=== PATIENT | female | born 1945 | race Caucasian/White ===

== ENCOUNTER 2017-08-24 08:34 | Inpatient (IN) | payer MEDICARE ==
--- NOTE | 2017-08-12 17:18 | HP ---
HISTORY AND PHYSICAL: DATE OF ADMISSION/SURGERY: 08/24/17 DATE OF OFFICE VISIT: 08/11/17 SURGEON: Sherie Elaine MD * (DICTATED BY TIFFANIE SANDOVAL) PROCEDURE: Right total knee arthroplasty. CHIEF COMPLAINT: Right knee pain. HISTORY OF PRESENT ILLNESS: Ms. Juarez is a 72-year-old female with complaints of right knee pain secondary to end-stage osteoarthritis. She has failed conservative management, elected to proceed with a right total knee arthroplasty, which is scheduled for 08/24/[address] Elaine. PAST MEDICAL HISTORY: Osteoarthritis, rheumatoid arthritis, and GERD. PAST SURGICAL HISTORY: Colonoscopy, left hand cyst removal. CURRENT MEDICATIONS: 1. Methotrexate 2.5 mg 6 tabs every week. 2. Humira. 3. Folic acid. 4. Calcium with vitamin D. 5. Multivitamin AREDS. 6. Biotin 5000 mg. 7. Advil as needed. 8. Magnesium 400 mg daily. ALLERGIES: To PENICILLIN. FAMILY HISTORY: Denies. SOCIAL HISTORY: She is a 72-year-old female. She lives alone. She does not smoke, use drugs, or alcohol. REVIEW OF SYSTEMS: A complete 14-point review of systems was reviewed with the patient. It was positive for GERD. She denies any history of DVT, PE, hepatitis C, HIV, or anesthesia problems. PHYSICAL EXAMINATION GENERAL: She is well developed, well nourished, in no acute distress. VITAL SIGNS: She stands 5 feet 6 inches tall, weighs 220 pounds. Her blood pressure is 150/92, heart rate is 80. HEENT: Normocephalic, atraumatic. NECK: Supple. No palpable lymph nodes. PULMONARY: The lungs are clear to auscultation bilaterally. CARDIO: Regular rate and rhythm. Strong S1, S2. ABDOMEN: Soft, nontender, nondistended. MUSCULOSKELETAL: Right lower extremity, the skin is intact. There are no open wounds or abrasions. She has tenderness to palpation over the medial and lateral joint line. No varus or valgus instability. 15 to 120 degrees range of motion. 2+ dorsalis pedis pulses. Intact sensation in the lower extremity, muscle group strength is intact at 5/5. NEUROLOGICAL: Alert and oriented x3. Cranial nerves II through XII are intact. ASSESSMENT AND PLAN: Ms. Juarez is a 72-year-old female with complaints of right knee pain secondary to end-stage osteoarthrosis. She has failed conservative management, elected to proceed with a right total knee arthroplasty , which is scheduled for 08/24/[address] Elaine discussed the risks and benefits of the surgery at today's visit and all of her questions were answered. Percocet, Colace, and Coumadin were sent to her pharmacy for postoperative pain control and DVT prophylaxis. She will follow with Dr. Elaine 2 weeks after the surgery. TIFFANIE SANDOVAL [id number]/[facility] #: [id number] GELA
[~2017-08-24 08:34] MED LIST: Buffered Lidocaine 0.9% SYRIN* 5 ML/SYR SYRINGE INTRADERM ONE
--- OUTSIDE RECORDS SUMMARY | 2017-08-24 08:43 | XMS REPORT ---
:1945 External Reference #:[id number] Author Organization [facility] Address [address] [address] Phone [phone] Care Team Providers Name Role Phone Laurie Paz MD Primary Care Physician Unavailable Payers Type Date Identification Numbers Payment Provider Subscriber Medicare Primary Effective: Policy Number: Medicare Yen Juarez 2012 [id number] PayID: [id number] [address] [place] [address] [employer] Part B Effective: Policy Number: [facility]/[employer] Yen Mann 2012 [id number] [facility] Larry PayID: [id number] [address] [place] [address] Problems Date Description Provider Status Onset: 05/19/2012 Rheumatoid arthritis Todd Tong M.D. Active Onset: 05/19/2012 Medications Nursing Home (Current) Use Todd Tong M.D. Active Encounter Onset: 12/17/2016 Localized, primary osteoarthritis Otilia Greenwood MD Active Onset: 05/20/2015 Knee joint effusion Otilia Greenwood MD Active Onset: 09/10/2014 Taking medication FILI Hutton Active Family History Date Family Member(s) Problem(s) Comments General Heart Disease Social History Type Date Description Comments Lives With Alone Occupation Retired ETOH Use Denies alcohol use Smoking Patient is a former smoker Exercise Type/Frequency Does not exercise Allergies, Adverse Reactions, Alerts Date Description Reaction Status Severity Comments 10/01/2010 Penicillin Urticaria active Medications Medication Date Status Form Strength Qnty SIG Indications Ordering Provider Coumadin Active Tablets 2mg 90tabs take 1-3 Sherie 018 tabs by Chele, mouth at 5 M.D. at night as directed Percocet Active Tablets 5-325mg 90tabs 1-2 by Sherie 018 mouth every Chele, 4-6 hours M.D. as needed pain Colace Active Capsules 100mg 90caps 1 tab by Sherie 018 mouth 2-3 Chele, times a day M.D. as needed Methotrexate Active Tablets 2.5mg 6 tbs by M05.79 Zsofia 017 mouth every John, week [employer] Z79.899 Humira Pen 10/01/2010 Active PNKT 40mg/0.8ML 6units inject sub -q M05.79 Zsofia inj 40mg once QUINTEN LopezP every other week Z79.899 Folic Acid 10/01/2010 Active Tablets 1mg 90tabs Take One Z79.899 Zsofia Tablet By John, Mouth Once [employer] Daily Calcium 600 + D Active Tablets 600-40 1 po bid Unknown 0mg-Un it Multivitamins Active Capsules 30caps 1 capsule Unknown mariaelena;y Areds Active Unknown Biotin Active 5000mg Unknown Advil Active Tablets 200mg as needed Unknown Magnesium Active Tablets 400mg 1 by mouth Unknown every day Methotrexate 03/11/2017 - Hx Tablets 2.5mg 84tabs Take 7 M05.79 Zsofia 06/14/2017 Tablets By John Mouth [employer] Every Week Z79.899 Methotrexate 12/07/2016 - Hx Tablets 2.5mg 84tabs Take 7 M05.79 Zsofia 03/11/2017 Tablets By FILI Lopez Mouth Every Week Z79.899 Methotrexate 09/07/2016 - Hx Tablets 2.5mg 84tabs Take 7 M05.79 Zsofia 12/07/2016 Tablets By FILI Lopez Mouth Every Week Z79.899 Handicap [address]ing 05/01/2016 - Hx Jono Permit Temporary 07/19/2017 Charlene Ravi Acetaminophen 05/20/2015 - Hx Tablets 500mg 90tab take 2 M25.4 Zaneb 04/30/2016 s tablets 62 MD Timo every 8 hours as needed for pain Naproxen 05/17/2015 - Hx Tablets 500mg 90tab 1 by mouth Zaneb 09/19/2016 s twice a day MD Timo as needed pain Methotrexate 09/19/2014 - Hx Tablets 2.5mg 84tab Take 7 M05.7 Zsofia 09/07/2016 s Tablets By 9 FILI Lopez Mouth Every Week Z79.899 Ibandronate Sodium 02/26/2014 - Hx Tablets 150mg 3tabs take 1 Zsofia 04/05/2014 tablet once John, a month [employer] Hydroxychloroquine 11/14/2012 - Hx Tablets 200mg 180tabs 1 po bid 714 Zsofia Sulfate 01/03/2013 .0 FILI Lopez Voltaren 11/14/2012 - Hx Gel 1% 1tubes apply to Zsofia 02/14/2013 affected John, area bid, [employer] prn Methotrexate 10/01/2010 - Hx Tablets 2.5mg 96tabs 7 tabs 1x 714 Zsofia 09/19/2014 per week .0 FILI Lopez V58.69 Nabumetone 10/01/2010 - Hx Tablets 750mg 90tabs take one Zsofia 09/04/2013 tablet by FILI Lopez mouth once daily Chantix - Hx Tablets 1mg 60tabs 1 PO bid Ruben Mondragon 10/01/2010 Bar Mcnair.,FACP Vitamin D - Hx Tablets 400Unit 30tabs qd po Unknown 12/17/2014 Prilosec - Hx Capsules DR 20mg 30caps prn Unknown 01/27/2016 Boniva - Hx Tablets 150mg take 1 Zsofia 02/26/2014 tablet once FILI Lopez a month Ibuprofen - Hx Tablets 200mg as needed Unknown 09/06/2016 Medications Administered in Office Medication Date Status Form Strength Qnty SIG Indications Ordering Provider Triamcinolone 04/13/ Administered Injection Zaneb (Kenalog) 2016 MD Timo Triamcinolone 04/13/ Administered Injection Zaneb (Kenalog) 2016 MD Timo Triamcinolone 12/17/ Administered Injection Zaneb (Kenalog) 2016 MD Timo Depomedrol 80MG 05/09/ Administered Injection Zagregb 2014 MD Timo Immunizations CPT Code Status Date Vaccine Reaction Lot # [id number] Given 06/14/2017 Influenza Virus Vaccine, [id number] Quadrivalent, Split, Preservative Free [id number] Given 03/11/2017 Pneumonia Vaccine no immedite reaction [id number] noted ... [place] tolerated [place] .. [place]h [id number] Given 04/30/2016 Influenza Virus Vaccine, [id number] Quadrivalent, Split, Preservative Free [id number] Given 06/05/2014 Pneumococcal Conjugate [id number] Vaccine 13 Valent For Intramuscular Use 69042 Given 06/05/2014 Flu Vaccine Split Virus [id number] Preservative Free For Indiv 3Yr Older 35951 Given 05/18/2013 Influenza Virus 3Yrs & [id number] Over 20376 Given 05/18/2013 Flu Vaccine Split Virus Preservative Free For Indiv 3Yr Older [id number] Given 05/19/2012 Fluzone Vaccine [id number] Given 05/19/2011 Influenza Virus 3Yrs & [id number] Over Vital Signs Date Vital Result Comment 08/12/2017 Weight 222.00 lb Heart Rate 82 /min BP Systolic Sitting 134 mmHg BP Diastolic Sitting 80 mmHg Respiratory Rate 14 /min 08/11/2017 Height 66 inches 5'6" Weight 220.00 lb Heart Rate 80 /min BP Systolic 150 mmHg BP Diastolic 92 mmHg BMI (Body Mass Index) 35.5 kg/m2 07/12/2017 Height 66 inches 5'6" Weight 210.00 lb Heart Rate 82 /min BP Systolic 182 mmHg BP Diastolic 80 mmHg Body Temperature 96.8 F BMI (Body Mass Index) 33.9 kg/m2 06/29/2017 Height 63 inches 5'3" Weight 215.00 lb Heart Rate 80 /min Respiratory Rate 18 /min Body Temperature 97.6 F Pain Level 8 BMI (Body Mass Index) 38.1 kg/m2 06/14/2017 Height 63 inches 5'3" Weight 218.00 lb Heart Rate 81 /min BP Systolic Sitting 128 mmHg BP Diastolic Sitting 74 mmHg Pain Level 1 0.5 O2 % BldC Oximetry 97 % BMI (Body Mass Index) 38.6 kg/m2 04/13/2017 Height 63 inches 5'3" Weight 215.00 lb Heart Rate 78 /min BP Systolic 140 mmHg BP Diastolic 82 mmHg Respiratory Rate 18 /min Body Temperature 96.9 F Pain Level 1 BMI (Body Mass Index) 38.1 kg/m2 03/11/2017 Height 63 inches 5'3" Weight 215.00 lb Heart Rate 76 /min BP Systolic Sitting 120 mmHg BP Diastolic Sitting 70 mmHg Pain Level 0 O2 % BldC Oximetry 94 % BMI (Body Mass Index) 38.1 kg/m2 12/17/2016 Height 63 inches 5'3" Weight 215.00 lb BP Systolic 118 mmHg BP Diastolic 76 mmHg Respiratory Rate 17 /min Body Temperature 97.6 F Pain Level 5 BMI (Body Mass Index) 38.1 kg/m2 12/07/2016 Weight 218.00 lb Heart Rate 62 /min BP Systolic Sitting 122 mmHg BP Diastolic Sitting 64 mmHg Respiratory Rate 15 /min Pain Level 0 O2 % BldC Oximetry 98 % 09/07/2016 Height 63 inches 5'3" Weight 221.19 lb Heart Rate 70 /min BP Systolic 120 mmHg BP Diastolic 60 mmHg Pain Level 0 O2 % BldC Oximetry 92 % BMI (Body Mass Index) 39.2 kg/m2 04/30/2016 Height 63.50 inches 5'3.50" Weight 216.00 lb Heart Rate 80 /min BP Systolic Sitting 126 mmHg BP Diastolic Sitting 82 mmHg Pain Level 0 BMI (Body Mass Index) 37.7 kg/m2 01/27/2016 Height 63.50 inches 5'3.50" Weight 215.00 lb Heart Rate 71 /min BP Systolic Sitting 136 mmHg BP Diastolic Sitting 88 mmHg Pain Level 0 BMI (Body Mass Index) 37.5 kg/m2 10/23/2015 Height 63.50 inches 5'3.50" Weight 217.00 lb Heart Rate 86 /min BP Systolic Sitting 118 mmHg BP Diastolic Sitting 84 mmHg Respiratory Rate 14 /min Pain Level 0 BMI (Body Mass Index) 37.8 kg/m2 07/24/2015 Height 63.50 inches 5'3.50" Weight 206.38 lb Heart Rate 88 /min BP Systolic Sitting 120 mmHg BP Diastolic Sitting 80 mmHg Respiratory Rate 14 /min Body Temperature 97.6 F Pain Level 0 BMI (Body Mass Index) 36.0 kg/m2 05/20/2015 Height 63.50 inches 5'3.50" Weight 206.00 lb Pain Level 8 BMI (Body Mass Index) 35.9 kg/m2 05/09/2015 Height 63.50 inches 5'3.50" Weight 206.00 lb Heart Rate 66 /min BP Systolic Sitting 153 mmHg BP Diastolic Sitting 96 mmHg BMI (Body Mass Index) 35.9 kg/m2 04/24/2015 Height 63.50 inches 5'3.50" Weight 205.12 lb Heart Rate 80 /min BP Systolic Sitting 130 mmHg BP Diastolic Sitting 84 mmHg Respiratory Rate 14 /min Pain Level 1 BMI (Body Mass Index) 35.8 kg/m2 12/17/2014 Height 63.50 inches 5'3.50" Weight 209.00 lb Heart Rate 80 /min BP Systolic Sitting 130 mmHg BP Diastolic Sitting 80 mmHg Pain Level 3 BMI (Body Mass Index) 36.4 kg/m2 09/19/2014 Height 63.50 inches 5'3.50" Weight 209.00 lb Heart Rate 90 /min BP Systolic Sitting 134 mmHg BP Diastolic Sitting 86 mmHg Pain Level 0 BMI (Body Mass Index) 36.4 kg/m2 06/05/2014 Height 63.50 inches 5'3.50" Weight 207.50 lb Heart Rate 66 /min BP Systolic 130 mmHg BP Diastolic 70 mmHg Pain Level 0 BMI (Body Mass Index) 36.2 kg/m2 02/26/2014 Weight 207.50 lb Heart Rate 66 /min BP Systolic Sitting 132 mmHg BP Diastolic Sitting 78 mmHg Pain Level 0 11/27/2013 Weight 211.75 lb Heart Rate 82 /min BP Systolic Sitting 110 mmHg BP Diastolic Sitting 80 mmHg 09/04/2013 Height 65 inches 5'5" Weight 209.00 lb Heart Rate 78 /min BP Systolic Sitting 130 mmHg BP Diastolic Sitting 80 mmHg BMI (Body Mass Index) 34.8 kg/m2 05/18/2013 Height 65 inches 5'5" Weight 212.00 lb Heart Rate 78 /min BP Systolic Sitting 136 mmHg BP Diastolic Sitting 82 mmHg BMI (Body Mass Index) 35.3 kg/m2 02/14/2013 Height 65 inches 5'5" Weight 214.00 lb Heart Rate 78 /min BP Systolic Sitting 131 mmHg BP Diastolic Sitting 70 mmHg BMI (Body Mass Index) 35.6 kg/m2 11/14/2012 Height 65 inches 5'5" Heart Rate 74 /min BP Systolic Sitting 121 mmHg BP Diastolic Sitting 71 mmHg 08/15/2012 Height 65 inches 5'5" Weight 213.00 lb Heart Rate 77 /min BP Systolic Sitting 124 mmHg BP Diastolic Sitting 74 mmHg BMI (Body Mass Index) 35.4 kg/m2 05/19/2012 Height 65 inches 5'5" Weight 216.00 lb Heart Rate 80 /min BP Systolic Sitting 127 mmHg BP Diastolic Sitting 77 mmHg BMI (Body Mass Index) 35.9 kg/m2 02/25/2012 Height 65 inches 5'5" Weight 218.00 lb Heart Rate 76 /min BP Systolic Sitting 134 mmHg BP Diastolic Sitting 86 mmHg BMI (Body Mass Index) 36.3 kg/m2 11/24/2011 Height 65 inches 5'5" Weight 220.00 lb Heart Rate 74 /min BP Systolic Sitting 124 mmHg BP Diastolic Sitting 69 mmHg BMI (Body Mass Index) 36.6 kg/m2 08/25/2011 Height 65 inches 5'5" Weight 216.50 lb Heart Rate 80 /min BP Systolic Sitting 126 mmHg BP Diastolic Sitting 83 mmHg BMI (Body Mass Index) 36.0 kg/m2 05/19/2011 Weight 216.00 lb Heart Rate 80 /min BP Systolic 120 mmHg BP Diastolic 80 mmHg 02/23/2011 Weight 218.00 lb Heart Rate 78 /min BP Systolic 110 mmHg BP Diastolic 76 mmHg 12/16/2010 Weight 218.00 lb Heart Rate 80 /min BP Systolic 122 mmHg BP Diastolic 80 mmHg 10/01/2010 Height 64 inches 5'4" Weight 214.00 lb Heart Rate 88 /min BP Systolic 118 mmHg BP Diastolic 74 mmHg BMI (Body Mass Index) 36.7 kg/m2 Results Test Date Test Result H/L Range Note Inr/Protime 08/11/2017 Inr 0.91 0.77-1.02 1 Laboratory test finding 08/11/2017 Partial Thrombo 29.4 seconds 26.0- 36.3 1 Time PTT CBC No Diff 08/11/2017 White Blood Count 6.0 10^3/uL 3.5-10.8 1 Red Blood Count 4.13 10^6/uL 4.0-5.4 1 Hemoglobin 13.3 g/dL 12.0-16.0 1 Hematocrit 40 % 35-47 1 Mean Corpuscular Volume 96 fL 80-97 1 Mean Corpuscular Hemoglobin 32 pg High 27-31 1 Mean Corpuscular HGB Conc 34 g/dL 31-36 1 Red Cell Distribution Width 14 % 10.5-15 1 Platelet Count 264 10^3/uL 150-450 1 Mean Platelet Volume 9 um3 7.4-10.4 1 Type & Screen 08/11/2017 Patient Blood Type A Positive 1 Antibody Screen NEGATIVE 1 Comp Metabolic Panel 08/11/2017 Sodium 138 mmol/L 133-145 1 Potassium 4.6 mmol/L 3.5-5.0 1 Chloride 101 mmol/L 101-111 1 Co2 Carbon Dioxide 30 mmol/L 22-32 1 Anion Gap 7 mmol/L 2-11 1 Glucose 84 mg/dL 70-100 1 Blood Urea Nitrogen 28 mg/dL High 6-24 1 Creatinine 0.91 mg/dL 0.51-0.95 1 BUN/Creatinine Ratio 30.8 High 8-20 1 Calcium 9.4 mg/dL 8.6-10.3 1 Total Protein 7.0 g/dL 6.4-8.9 1 Albumin 4.0 g/dL 3.2-5.2 1 Globulin 3.0 g/dL 2-4 1 Albumin/Globulin Ratio 1.3 1-3 1 Total Bilirubin 0.40 mg/dL 0.2-1.0 1 Alkaline Phosphatase 76 U/L 34-104 1 Alt 20 U/L 7-52 1 Ast 19 U/L 13-39 1 Egfr Non- 60.8 >60 1 Egfr 78.1 >60 1, 2 Urinalysis Profile 08/11/2017 Urine Color Yellow Urine Appearance Cloudy Urine Specific [place] 1.023 1.010-1.030 Urine pH 5.0 5-9 Urine Urobilinogen Negative Negative Urine Ketones Negative Negative Urine Protein Negative Negative Urine Leukocytes Trace Negative Urine Blood 1+ Negative * * Negative 3 Urine Nitrite Negative Negative Urine Bilirubin Negative Negative Urine Glucose Negative Negative Urine White Blood Cell Trace(0-5/hpf) Absent Urine Red Blood Cell 3+(>10/hpf) Absent Urine Bacteria Absent Absent Urine Squamous Epithelial Cell Present Absent Comp Metabolic Panel 05/26/2017 Sodium 140 mmol/L 133-145 Potassium 4.2 mmol/L 3.5-5.0 Chloride 104 mmol/L 101-111 Co2 Carbon Dioxide 33 mmol/L High 22-32 Anion Gap 3 mmol/L 2-11 Glucose 97 mg/dL 70-100 Blood Urea Nitrogen 23 mg/dL 6-24 Creatinine 0.90 mg/dL 0.51-0.95 BUN/Creatinine Ratio 25.6 High 8-20 Calcium 9.2 mg/dL 8.6-10.3 Total Protein 6.2 g/dL Low 6.4-8.9 Albumin 3.7 g/dL 3.2-5.2 Globulin 2.5 g/dL 2-4 Albumin/Globulin Ratio 1.5 1-3 Total Bilirubin 0.30 mg/dL 0.2-1.0 Alkaline Phosphatase 55 U/L 34-104 Alt 20 U/L 7-52 Ast 17 U/L 13-39 Egfr Non- 61.7 >60 Egfr 79.4 >60 4 Laboratory test finding 05/26/2017 C Reactive Protein < 1.00 mg/L &lt ; 5.00 5 CBC Auto Diff 05/26/2017 White Blood Count 5.7 10^3/uL 3.5-10.8 Red Blood Count 4.16 10^6/uL 4.0-5.4 Hemoglobin 13.7 g/dL 12.0-16.0 Hematocrit 40 % 35-47 Mean Corpuscular Volume 97 fL 80-97 Mean Corpuscular Hemoglobin 33 pg High 27-31 Mean Corpuscular HGB Conc 34 g/dL 31-36 Red Cell Distribution Width 14 % 10.5-15 Platelet Count 241 10^3/uL 150-450 Mean Platelet Volume 8 um3 7.4-10.4 Abs Neutrophils 3.1 10^3/uL 1.5-7.7 Abs Lymphocytes 2.1 10^3/uL 1.0-4.8 Abs Monocytes 0.5 10^3/uL 0-0.8 Abs Eosinophils 0 10^3/uL 0-0.6 Abs Basophils 0 10^3/uL 0-0.2 Abs Nucleated RBC 0 10^3/uL Granulocyte % 54.0 % 38-83 Lymphocyte % 36.2 % 25-47 Monocyte % 8.3 % 1-9 Eosinophil % 0.8 % 0-6 Basophil % 0.7 % 0-2 Nucleated Red Blood Cells % 0 Laboratory test finding 05/26/2017 Erythrocyte Sed Rate 16 mm/Hr 0-40 6 Lipid Profile (Trig/Chol/HDL) 03/31/2017 Triglycerides 71 mg/dL 7 Cholesterol 194 mg/dL 8 HDL Cholesterol 52.8 mg/dL 9 LDL Cholesterol 127 mg/dL 10 Laboratory test finding 03/31/2017 TSH (Thyroid Stim Horm) 2.33 mcIU/mL 0.34-5.60 Free T4 (Free Thyroxine) 0.81 ng/dL 0.61-1.12 CBC Auto Diff 03/31/2017 White Blood Count 5.7 10^3/uL 3.5-10.8 Red Blood Count 4.30 10^6/uL 4.0-5.4 Hemoglobin 13.8 g/dL 12.0-16.0 Hematocrit 41 % 35-47 Mean Corpuscular Volume 96 fL 80-97 Mean Corpuscular Hemoglobin 32 pg High 27-31 Mean Corpuscular HGB Conc 33 g/dL 31-36 Red Cell Distribution Width 15 % 10.5-15 Platelet Count 246 10^3/uL 150-450 Mean Platelet Volume 8 um3 7.4-10.4 Abs Neutrophils 2.9 10^3/uL 1.5-7.7 Abs Lymphocytes 2.0 10^3/uL 1.0-4.8 Abs Monocytes 0.5 10^3/uL 0-0.8 Abs Eosinophils 0.1 10^3/uL 0-0.6 Abs Basophils 0.1 10^3/uL 0-0.2 Abs Nucleated RBC 0 10^3/uL Granulocyte % 51.4 % 38-83 Lymphocyte % 35.7 % 25-47 Monocyte % 9.0 % 1-9 Eosinophil % 2.5 % 0-6 Basophil % 1.4 % 0-2 Nucleated Red Blood Cells % 0 Comp Metabolic Panel 03/31/2017 Sodium 139 mmol/L 133-145 Potassium 4.5 mmol/L 3.5-5.0 Chloride 104 mmol/L 101-111 Co2 Carbon Dioxide 33 mmol/L High 22-32 Anion Gap 2 mmol/L 2-11 Glucose 90 mg/dL 70-100 Blood Urea Nitrogen 23 mg/dL 6-24 Creatinine 0.99 mg/dL High 0.51-0.95 BUN/Creatinine Ratio 23.2 High 8-20 Calcium 9.3 mg/dL 8.6-10.3 Total Protein 6.6 g/dL 6.4-8.9 Albumin 3.7 g/dL 3.2-5.2 Globulin 2.9 g/dL 2-4 Albumin/Globulin Ratio 1.3 1-3 Total Bilirubin 0.40 mg/dL 0.2-1.0 Alkaline Phosphatase 60 U/L 34-104 Alt 19 U/L 7-52 Ast 18 U/L 13-39 Egfr Non- 55.3 >60 Egfr 71.1 >60 11 Laboratory test finding 03/31/2017 C Reactive Protein < 1.00 mg/L &lt ; 5.00 12 Erythrocyte Sed Rate 23 mm/Hr 0-40 CBC Auto Diff 02/20/2017 White Blood Count 5.8 10^3/uL 3.5-10.8 Red Blood Count 4.06 10^6/uL 4.0-5.4 Hemoglobin 13.1 g/dL 12.0-16.0 Hematocrit 39 % 35-47 Mean Corpuscular Volume 96 fL 80-97 Mean Corpuscular Hemoglobin 32 pg High 27-31 Mean Corpuscular HGB Conc 34 g/dL 31-36 Red Cell Distribution Width 15 % 10.5-15 Platelet Count 228 10^3/uL 150-450 Mean Platelet Volume 9 um3 7.4-10.4 Abs Neutrophils 3.0 10^3/uL 1.5-7.7 Abs Lymphocytes 2.1 10^3/uL 1.0-4.8 Abs Monocytes 0.6 10^3/uL 0-0.8 Abs Eosinophils 0.1 10^3/uL 0-0.6 Abs Basophils 0 10^3/uL 0-0.2 Abs Nucleated RBC 0.01 10^3/uL Granulocyte % 51.2 % 38-83 Lymphocyte % 35.9 % 25-47 Monocyte % 10.6 % High 1-9 Eosinophil % 1.8 % 0-6 Basophil % 0.5 % 0-2 Nucleated Red Blood Cells % 0.1 Laboratory test finding 02/20/2017 Erythrocyte Sed Rate 25 mm/Hr 0-40 13 Comp Metabolic Panel 02/20/2017 Sodium 138 mmol/L 133-145 Potassium 4.2 mmol/L 3.5-5.0 Chloride 105 mmol/L 101-111 Co2 Carbon Dioxide 29 mmol/L 22-32 Anion Gap 4 mmol/L 2-11 Glucose 84 mg/dL 70-100 Blood Urea Nitrogen 26 mg/dL High 6-24 Creatinine 0.96 mg/dL High 0.51-0.95 BUN/Creatinine Ratio 27.1 High 8-20 Calcium 9.4 mg/dL 8.6-10.3 Total Protein 6.3 g/dL Low 6.4-8.9 Albumin 3.6 g/dL 3.2-5.2 Globulin 2.7 g/dL 2-4 Albumin/Globulin Ratio 1.3 1-3 Total Bilirubin 0.40 mg/dL 0.2-1.0 Alkaline Phosphatase 59 U/L 34-104 Alt 21 U/L 7-52 Ast 18 U/L 13-39 Egfr Non- 57.3 >60 Egfr 73.7 >60 14 Laboratory test finding 02/20/2017 C Reactive Protein < 1.00 mg/L &lt ; 5.00 15 CBC Auto Diff 12/14/2016 White Blood Count 5.2 10^3/uL 3.5-10.8 Red Blood Count 4.18 10^6/uL 4.0-5.4 Hemoglobin 12.8 g/dL 12.0-16.0 Hematocrit 39 % 35-47 Mean Corpuscular Volume 93 fL 80-97 Mean Corpuscular Hemoglobin 31 pg 27-31 Mean Corpuscular HGB Conc 33 g/dL 31-36 Red Cell Distribution Width 14 % 10.5-15 Platelet Count 237 10^3/uL 150-450 Mean Platelet Volume 9 um3 7.4-10.4 Abs Neutrophils 2.3 10^3/uL 1.5-7.7 Abs Lymphocytes 2.1 10^3/uL 1.0-4.8 Abs Monocytes 0.6 10^3/uL 0-0.8 Abs Eosinophils 0.2 10^3/uL 0-0.6 Abs Basophils 0 10^3/uL 0-0.2 Abs Nucleated RBC 0 10^3/uL Granulocyte % 44.4 % 38-83 Lymphocyte % 40.4 % 25-47 Monocyte % 10.9 % High 1-9 Eosinophil % 3.4 % 0-6 Basophil % 0.9 % 0-2 Nucleated Red Blood Cells % 0 Comp Metabolic Panel 12/14/2016 Sodium 137 mmol/L 133-145 Potassium 4.2 mmol/L 3.5-5.0 Chloride 103 mmol/L 101-111 Co2 Carbon Dioxide 31 mmol/L 22-32 Anion Gap 3 mmol/L 2-11 Glucose 92 mg/dL 70-100 Blood Urea Nitrogen 26 mg/dL High 6-24 Creatinine 1.01 mg/dL High 0.51-0.95 BUN/Creatinine Ratio 25.7 High 8-20 Calcium 9.3 mg/dL 8.6-10.3 Total Protein 6.4 g/dL 6.4-8.9 Albumin 3.7 g/dL 3.2-5.2 Globulin 2.7 g/dL 2-4 Albumin/Globulin Ratio 1.4 1-3 Total Bilirubin 0.40 mg/dL 0.2-1.0 Alkaline Phosphatase 68 U/L 34-104 Alt 17 U/L 7-52 Ast 17 U/L 13-39 Egfr Non- 54.0 >60 Egfr 69.5 >60 16 Laboratory test finding 12/14/2016 Erythrocyte Sed Rate 26 mm/Hr 0-40 17 C Reactive Protein 1.07 mg/L < 5.00 18 Laboratory test finding 09/22/2016 Creatine Kinase(CK) 95 U/L 10-223 CBC Auto Diff 09/22/2016 White Blood Count 7.7 10^3/uL 3.5-10.8 Red Blood Count 4.39 10^6/uL 4.0-5.4 Hemoglobin 13.5 g/dL 12.0-16.0 Hematocrit 41 % 35-47 Mean Corpuscular Volume 92 fL 80-97 Mean Corpuscular Hemoglobin 31 pg 27-31 Mean Corpuscular HGB Conc 33 g/dL 31-36 Red Cell Distribution Width 14 % 10.5-15 Platelet Count 239 10^3/uL 150-450 Mean Platelet Volume 9 um3 7.4-10.4 Abs Neutrophils 4.3 10^3/uL 1.5-7.7 Abs Lymphocytes 2.6 10^3/uL 1.0-4.8 Abs Monocytes 0.6 10^3/uL 0-0.8 Abs Eosinophils 0.1 10^3/uL 0-0.6 Abs Basophils 0.1 10^3/uL 0-0.2 Abs Nucleated RBC 0 10^3/uL Granulocyte % 56.0 % 38-83 Lymphocyte % 33.5 % 25-47 Monocyte % 7.8 % 1-9 Eosinophil % 1.5 % 0-6 Basophil % 1.2 % 0-2 Nucleated Red Blood Cells % 0 Comp Metabolic Panel 09/22/2016 Sodium 138 mmol/L 133-145 Potassium 4.2 mmol/L 3.5-5.0 Chloride 103 mmol/L 101-111 Co2 Carbon Dioxide 32 mmol/L 22-32 Anion Gap 3 mmol/L 2-11 Glucose 101 mg/dL High 70-100 Blood Urea Nitrogen 26 mg/dL High 6-24 Creatinine 1.01 mg/dL High 0.51-0.95 BUN/Creatinine Ratio 25.7 High 8-20 Calcium 9.7 mg/dL 8.6-10.3 Total Protein 6.7 g/dL 6.4-8.9 Albumin 4.0 g/dL 3.2-5.2 Globulin 2.7 g/dL 2-4 Albumin/Globulin Ratio 1.5 1-3 Total Bilirubin 0.50 mg/dL 0.2-1.0 Alkaline Phosphatase 67 U/L 34-104 Alt 18 U/L 7-52 Ast 17 U/L 13-39 Egfr Non- 54.0 >60 Egfr 69.5 >60 19 Laboratory test finding 09/22/2016 Erythrocyte Sed Rate 17 mm/Hr 0-40 20 C Reactive Protein < 1.00 mg/L < 5.00 21 CMP Panel 07/30/2016 Sodium 138 mmol/L 133-145 Potassium 4.3 mmol/L 3.5-5.0 Chloride 102 mmol/L 101-111 Co2 Carbon Dioxide 31 mmol/L 22-32 Anion Gap 5 mmol/L 2-11 Glucose 93 mg/dL 70-100 Blood Urea Nitrogen 22 mg/dL 6-24 Creatinine 0.93 mg/dL 0.51-0.95 BUN/Creatinine Ratio 23.7 High 8-20 Calcium 9.3 mg/dL 8.6-10.3 Total Protein 6.8 g/dL 6.4-8.9 Albumin 4.0 g/dL 3.2-5.2 Globulin 2.8 g/dL 2-4 Albumin/Globulin Ratio 1.4 1-3 Total Bilirubin 0.30 mg/dL 0.2-1.0 Alkaline Phosphatase 71 U/L 34-104 Alt 20 U/L 7-52 Ast 18 U/L 13-39 Egfr Non- 59.4 >60 Egfr 76.4 >60 22 Laboratory test finding 07/30/2016 C Reactive Protein 1.04 mg/L < 5.00 23 CBC W/Auto Diff 07/30/2016 White Blood Count 5.3 10^3/uL 3.5-10.8 Red Blood Count 4.33 10^6/uL 4.0-5.4 Hemoglobin 13.4 g/dL 12.0-16.0 Hematocrit 40 % 35-47 Mean Corpuscular Volume 93 fL 80-97 Mean Corpuscular Hemoglobin 31 pg 27-31 Mean Corpuscular HGB Conc 34 g/dL 31-36 Red Cell Distribution Width 14 % 10.5-15 Platelet Count 230 10^3/uL 150-450 Mean Platelet Volume 8 um3 7.4-10.4 Abs Neutrophils 2.6 10^3/uL 1.5-7.7 Abs Lymphocytes 1.9 10^3/uL 1.0-4.8 Abs Monocytes 0.6 10^3/uL 0-0.8 Abs Eosinophils 0.1 10^3/uL 0-0.6 Abs Basophils 0 10^3/uL 0-0.2 Abs Nucleated RBC 0 10^3/uL Granulocyte % 48.9 % 38-83 Lymphocyte % 36.5 % 25-47 Monocyte % 11.6 % High 1-9 Eosinophil % 2.4 % 0-6 Basophil % 0.6 % 0-2 Nucleated Red Blood Cells % 0.1 Laboratory test finding 07/30/2016 Erythrocyte Sed Rate 23 mm/Hr 0-40 24 Comp Metabolic Panel 04/23/2016 Sodium 137 mmol/L 133-145 Potassium 4.4 mmol/L 3.5-5.0 Chloride 103 mmol/L 101-111 Co2 Carbon Dioxide 31 mmol/L 22-32 Anion Gap 3 mmol/L 2-11 Glucose 82 mg/dL 70-100 Blood Urea Nitrogen 23 mg/dL 6-24 Creatinine 0.86 mg/dL 0.51-0.95 BUN/Creatinine Ratio 26.7 High 8-20 Calcium 9.4 mg/dL 8.6-10.3 Total Protein 6.6 g/dL 6.4-8.9 Albumin 3.8 g/dL 3.2-5.2 Globulin 2.8 g/dL 2-4 Albumin/Globulin Ratio 1.4 1-3 Total Bilirubin 0.30 mg/dL 0.2-1.0 Alkaline Phosphatase 72 U/L 34-104 Alt 20 U/L 7-52 Ast 19 U/L 13-39 Egfr Non- 65.2 >60 Egfr 83.9 >60 25 Laboratory test finding 04/23/2016 C Reactive Protein 1.47 mg/L < 5.00 26 CBC Auto Diff 04/23/2016 White Blood Count 4.6 10^3/uL 3.5-10.8 Red Blood Count 4.16 10^6/uL 4.0-5.4 Hemoglobin 12.8 g/dL 12.0-16.0 Hematocrit 38 % 35-47 Mean Corpuscular Volume 92 fL 80-97 Mean Corpuscular Hemoglobin 31 pg 27-31 Mean Corpuscular HGB Conc 34 g/dL 31-36 Red Cell Distribution Width 14 % 10.5-15 Platelet Count 227 10^3/uL 150-450 Mean Platelet Volume 9 um3 7.4-10.4 Abs Neutrophils 2.0 10^3/uL 1.5-7.7 Abs Lymphocytes 1.7 10^3/uL 1.0-4.8 Abs Monocytes 0.7 10^3/uL 0-0.8 Abs Eosinophils 0.2 10^3/uL 0-0.6 Abs Basophils 0 10^3/uL 0-0.2 Abs Nucleated RBC 0.01 10^3/uL Granulocyte % 44.2 % 38-83 Lymphocyte % 36.1 % 25-47 Monocyte % 14.9 % High 1-9 Eosinophil % 3.8 % 0-6 Basophil % 1.0 % 0-2 Nucleated Red Blood Cells % 0.1 Laboratory test finding 04/23/2016 Erythrocyte Sed Rate 23 mm/Hr 0-40 Comp Metabolic Panel 01/25/2016 Sodium 140 mmol/L 133-145 Potassium 4.2 mmol/L 3.5-5.0 Chloride 105 mmol/L 101-111 Co2 Carbon Dioxide 31 mmol/L 22-32 Anion Gap 4 mmol/L 2-11 Glucose 100 mg/dL 70-100 Blood Urea Nitrogen 20 mg/dL 6-24 Creatinine 1.00 mg/dL High 0.51-0.95 BUN/Creatinine Ratio 20.0 8-20 Calcium 9.4 mg/dL 8.6-10.3 Total Protein 6.5 g/dL 6.4-8.9 Albumin 3.9 g/dL 3.2-5.2 Globulin 2.6 g/dL 2-4 Albumin/Globulin Ratio 1.5 1-3 Total Bilirubin 0.40 mg/dL 0.2-1.0 Alkaline Phosphatase 65 U/L 34-104 Alt 15 U/L 7-52 Ast 18 U/L 13-39 Egfr Non- 54.8 >60 Egfr 70.5 >60 27 Laboratory test finding 01/25/2016 C Reactive Protein 1.69 mg/L < 5.00 28 CBC Auto Diff 01/25/2016 White Blood Count 4.6 10^3/uL 3.5-10.8 Red Blood Count 4.07 10^6/uL 4.0-5.4 Hemoglobin 12.7 g/dL 12.0-16.0 Hematocrit 38 % 35-47 Mean Corpuscular Volume 93 fL 80-97 Mean Corpuscular Hemoglobin 31 pg 27-31 Mean Corpuscular HGB Conc 34 g/dL 31-36 Red Cell Distribution Width 14 % 10.5-15 Platelet Count 233 10^3/uL 150-450 Mean Platelet Volume 8 um3 7.4-10.4 Abs Neutrophils 1.9 10^3/uL 1.5-7.7 Abs Lymphocytes 2.0 10^3/uL 1.0-4.8 Abs Monocytes 0.5 10^3/uL 0-0.8 Abs Eosinophils 0.1 10^3/uL 0-0.6 Abs Basophils 0 10^3/uL 0-0.2 Abs Nucleated RBC 0.01 10^3/uL Granulocyte % 41.9 % 38-83 Lymphocyte % 42.8 % 25-47 Monocyte % 11.6 % High 1-9 Eosinophil % 3.1 % 0-6 Basophil % 0.6 % 0-2 Nucleated Red Blood Cells % 0.2 Laboratory test finding 01/25/2016 Erythrocyte Sed Rate 21 mm/Hr 0-40 29 Laboratory test finding 10/23/2015 Free T4 (Free Thyroxine) 0.71 ng/dL 0.61-1.12 30 TSH (Thyroid Stim Horm) 2.21 ?IU/mL 0.34-5.60 31 Vitamin D Total 25(Oh) 33.4 ng/mL 30-50 32 CBC Auto Diff 10/15/2015 White Blood Count 4.8 10^3/uL 3.5-10.8 Red Blood Count 4.24 10^6/uL 4.0-5.4 Hemoglobin 13.2 g/dL 12.0-16.0 Hematocrit 40 % 35-47 Mean Corpuscular Volume 93 fL 80-97 Mean Corpuscular Hemoglobin 31 pg 27-31 Mean Corpuscular HGB Conc 33 g/dL 31-36 Red Cell Distribution Width 15 % 10.5-15 Platelet Count 223 10^3/uL 150-450 Mean Platelet Volume 8 um3 7.4-10.4 Abs Neutrophils 2.1 10^3/uL 1.5-7.7 Abs Lymphocytes 2.1 10^3/uL 1.0-4.8 Abs Monocytes 0.5 10^3/uL 0-0.8 Abs Eosinophils 0.2 10^3/uL 0-0.6 Abs Basophils 0 10^3/uL 0-0.2 Abs Nucleated RBC 0 10^3/uL Granulocyte % 43.4 % 38-83 Lymphocyte % 42.9 % 25-47 Monocyte % 9.4 % High 1-9 Eosinophil % 3.4 % 0-6 Basophil % 0.9 % 0-2 Nucleated Red Blood Cells % 0.1 Laboratory test finding 10/15/2015 C Reactive Protein < 1.00 mg/L &lt ; 5.00 33 Erythrocyte Sed Rate 20 mm/Hr 0-40 34 Comp Metabolic Panel 10/15/2015 Sodium 138 mmol/L 133-145 Potassium 4.1 mmol/L 3.5-5.0 Chloride 102 mmol/L 101-111 Co2 Carbon Dioxide 33 mmol/L High 22-32 Anion Gap 3 mmol/L 2-11 Glucose 101 mg/dL High 70-100 Blood Urea Nitrogen 21 mg/dL 6-24 Creatinine 0.90 mg/dL 0.51-0.95 BUN/Creatinine Ratio 23.3 High 8-20 Calcium 9.1 mg/dL 8.6-10.3 Total Protein 6.6 g/dL 6.4-8.9 Albumin 3.9 g/dL 3.2-5.2 Globulin 2.7 g/dL 2-4 Albumin/Globulin Ratio 1.4 1-3 Total Bilirubin 0.30 mg/dL 0.2-1.0 Alkaline Phosphatase 65 U/L 34-104 Alt 18 U/L 7-52 Ast 19 U/L 13-39 Egfr Non- 61.9 >60 Egfr 79.6 >60 35 CBC Auto Diff 07/13/2015 White Blood Count 5.5 10^3/uL 4.8-10.8 Red Blood Count 4.10 10^6/uL 4.0-5.4 Hemoglobin 12.7 g/dL 12.0-16.0 Hematocrit 39 % 35-47 Mean Corpuscular Volume 94 fL 80-97 Mean Corpuscular Hemoglobin 31 pg 27-31 Mean Corpuscular HGB Conc 33 g/dL 31-36 Red Cell Distribution Width 15 % 10.5-15 Platelet Count 221 10^3/uL 150-450 Mean Platelet Volume 8 um3 7.4-10.4 Abs Neutrophils 3.1 10^3/uL 1.5-7.7 Abs Lymphocytes 1.4 10^3/uL 1.0-4.8 Abs Monocytes 0.7 10^3/uL 0-0.8 Abs Eosinophils 0.2 10^3/uL 0-0.6 Abs Basophils 0.1 10^3/uL 0-0.2 Abs Nucleated RBC 0 10^3/uL Granulocyte % 56.5 % 38-83 Lymphocyte % 25.7 % 25-47 Monocyte % 13.4 % High 1-9 Eosinophil % 3.3 % 0-6 Basophil % 1.1 % 0-2 Nucleated Red Blood Cells % 0 Comp Metabolic Panel 07/13/2015 Sodium 137 mmol/L 133-145 Potassium 4.2 mmol/L 3.5-5.0 Chloride 102 mmol/L 101-111 Co2 Carbon Dioxide 31 mmol/L 22-32 Anion Gap 4 mmol/L 2-11 Glucose 88 mg/dL 70-100 Blood Urea Nitrogen 20 mg/dL 6-24 Creatinine 0.95 mg/dL 0.51-0.95 BUN/Creatinine Ratio 21.1 High 8-20 Calcium 9.3 mg/dL 8.6-10.3 Total Protein 6.6 g/dL 6.4-8.9 Albumin 3.8 g/dL 3.2-5.2 Globulin 2.8 g/dL 2-4 Albumin/Globulin Ratio 1.4 1-3 Total Bilirubin 0.30 mg/dL 0.2-1.0 Alkaline Phosphatase 73 U/L 34-104 Alt 19 U/L 7-52 Ast 22 U/L 13-39 Egfr Non- 58.3 >60 Egfr 75.0 >60 36 Laboratory test finding 07/13/2015 C Reactive Protein 8.94 mg/L High < 5.00 37 Erythrocyte Sed Rate 37 mm/Hr 0-40 38 Comp Metabolic Panel 03/09/2015 Sodium 137 mmol/L 133-145 Potassium 4.6 mmol/L 3.5-5.0 Chloride 103 mmol/L 101-111 Co2 Carbon Dioxide 31 mmol/L 22-32 Anion Gap 3 mmol/L 2-11 Glucose 74 mg/dL 70-100 Blood Urea Nitrogen 21 mg/dL 6-24 Creatinine 0.96 mg/dL High 0.51-0.95 BUN/Creatinine Ratio 21.9 High 8-20 Calcium 9.2 mg/dL 8.6-10.3 Total Protein 6.5 g/dL 6.4-8.9 Albumin 3.9 g/dL 3.2-5.2 Globulin 2.6 g/dL 2-4 Albumin/Globulin Ratio 1.5 1-3 Total Bilirubin 0.30 mg/dL 0.2-1.0 Alkaline Phosphatase 65 U/L 34-104 Alt 15 U/L 7-52 Ast 16 U/L 13-39 Egfr Non- 57.6 >60 Egfr 74.1 >60 39 Laboratory test finding 03/09/2015 Erythrocyte Sed Rate 22 mm/Hr 0-40 CBC Auto Diff 03/09/2015 White Blood Count 4.6 10^3/uL Low 4.8-10.8 Red Blood Count 4.39 10^6/uL 4.0-5.4 Hemoglobin 13.5 g/dL 12.0-16.0 Hematocrit 42 % 35-47 Mean Corpuscular Volume 95 fL 80-97 Mean Corpuscular Hemoglobin 31 pg 27-31 Mean Corpuscular HGB Conc 32 g/dL 31-36 Red Cell Distribution Width 14 % 10.5-15 Platelet Count 232 10^3/uL 150-450 Mean Platelet Volume 9 um3 7.4-10.4 Abs Neutrophils 2.2 10^3/uL 1.5-7.7 Abs Lymphocytes 1.7 10^3/uL 1.0-4.8 Abs Monocytes 0.5 10^3/uL 0-0.8 Abs Eosinophils 0.1 10^3/uL 0-0.6 Abs Basophils 0 10^3/uL 0-0.2 Abs Nucleated RBC 0 10^3/uL Granulocyte % 48.5 % 38-83 Lymphocyte % 37.2 % 25-47 Monocyte % 11.4 % High 1-9 Eosinophil % 2.4 % 0-6 Basophil % 0.5 % 0-2 Nucleated Red Blood Cells % 0.1 Laboratory test finding 03/09/2015 C Reactive Protein 1.02 mg/L < 5.00 40 Comp Metabolic Panel 12/12/2014 Sodium 139 mmol/L 133-145 Potassium 4.4 mmol/L 3.5-5.0 Chloride 103 mmol/L 101-111 Co2 Carbon Dioxide 33 mmol/L High 22-32 Anion Gap 3 mmol/L 2-11 Glucose 75 mg/dL 70-100 Blood Urea Nitrogen 15 mg/dL 6-24 Creatinine 0.96 mg/dL High 0.51-0.95 BUN/Creatinine Ratio 15.6 8-20 Calcium 9.6 mg/dL 8.6-10.3 Total Protein 6.7 g/dL 6.4-8.9 Albumin 3.9 g/dL 3.2-5.2 Globulin 2.8 g/dL 2-4 Albumin/Globulin Ratio 1.4 1-3 Total Bilirubin 0.40 mg/dL 0.2-1.0 Alkaline Phosphatase 73 U/L 34-104 Alt 16 U/L 7-52 Ast 20 U/L 13-39 Egfr Non- 57.6 >60 Egfr 74.1 >60 41 Laboratory test finding 12/12/2014 C Reactive Protein 1.84 mg/L < 5.00 42 CBC Auto Diff 12/12/2014 White Blood Count 5.1 10^3/uL 4.8-10.8 Red Blood Count 4.16 10^6/uL 4.0-5.4 Hemoglobin 13.4 g/dL 12.0-16.0 Hematocrit 39 % 35-47 Mean Corpuscular Volume 95 fL 80-97 Mean Corpuscular Hemoglobin 32 pg High 27-31 Mean Corpuscular HGB Conc 34 g/dL 31-36 Red Cell Distribution Width 15 % 10.5-15 Platelet Count 223 10^3/uL 150-450 Mean Platelet Volume 9 um3 7.4-10.4 Abs Neutrophils 2.4 10^3/uL 1.5-7.7 Abs Lymphocytes 1.9 10^3/uL 1.0-4.8 Abs Monocytes 0.5 10^3/uL 0-0.8 Abs Eosinophils 0.1 10^3/uL 0-0.6 Abs Basophils 0 10^3/uL 0-0.2 Abs Nucleated RBC 0 10^3/uL Granulocyte % 48.1 % 38-83 Lymphocyte % 37.9 % 25-47 Monocyte % 10.5 % High 1-9 Eosinophil % 2.8 % 0-6 Basophil % 0.7 % 0-2 Nucleated Red Blood Cells % 0 Laboratory test finding 12/12/2014 Erythrocyte Sed Rate 27 mm/Hr 0-40 Comp Metabolic Panel 09/12/2014 Sodium 137 mmol/L 133-145 Potassium 3.9 mmol/L 3.5-5.0 Chloride 100 mmol/L Low 101-111 Co2 Carbon Dioxide 32 mmol/L 22-32 Anion Gap 5 mmol/L 2-11 Glucose 77 mg/dL 70-100 Blood Urea Nitrogen 18 mg/dL 6-24 Creatinine 1.00 mg/dL High 0.51-0.95 BUN/Creatinine Ratio 18.0 8-20 Calcium 9.5 mg/dL 8.6-10.3 Total Protein 6.9 g/dL 6.4-8.9 Albumin 4.1 g/dL 3.2-5.2 Globulin 2.8 g/dL 2-4 Albumin/Globulin Ratio 1.5 1-3 Total Bilirubin 0.40 mg/dL 0.2-1.0 Alkaline Phosphatase 75 U/L 34-104 Alt 23 U/L 7-52 Ast 20 U/L 13-39 Egfr Non- 55.0 >60 Egfr 70.7 >60 43 Laboratory test finding 09/12/2014 Erythrocyte Sed Rate 26 mm/Hr 0-40 CBC Auto Diff 09/12/2014 White Blood Count 4.5 10^3/uL Low 4.8-10.8 Red Blood Count 4.45 10^6/uL 4.0-5.4 Hemoglobin 14.1 g/dL 12.0-16.0 Hematocrit 41 % 35-47 Mean Corpuscular Volume 93 fL 80-97 Mean Corpuscular Hemoglobin 32 pg High 27-31 Mean Corpuscular HGB Conc 34 g/dL 31-36 Red Cell Distribution Width 14 % 10.5-15 Platelet Count 189 10^3/uL 150-450 Mean Platelet Volume 9 um3 7.4-10.4 Abs Neutrophils 2.3 10^3/uL 1.5-7.7 Abs Lymphocytes 1.5 10^3/uL 1.0-4.8 Abs Monocytes 0.6 10^3/uL 0-0.8 Abs Eosinophils 0.1 10^3/uL 0-0.6 Abs Basophils 0 10^3/uL 0-0.2 Abs Nucleated RBC 0 10^3/uL Granulocyte % 50.8 % 38-83 Lymphocyte % 32.8 % 25-47 Monocyte % 12.9 % High 1-9 Eosinophil % 2.5 % 0-6 Basophil % 1.0 % 0-2 Nucleated Red Blood Cells % 0.1 Laboratory test finding 09/12/2014 C Reactive Protein 1.87 mg/L < 5.00 44 Comp Metabolic Panel 05/09/2014 Sodium 139 mmol/L 133-145 Potassium 4.1 mmol/L 3.7-5.6 Chloride 103 mmol/L 101-111 Co2 Carbon Dioxide 34 mmol/L High 22-32 Anion Gap 2 mmol/L 2-11 Glucose 84 mg/dL 70-100 Blood Urea Nitrogen 18 mg/dL 6-24 Creatinine 0.96 mg/dL High 0.51-0.95 BUN/Creatinine Ratio 18.8 8-20 Calcium 9.4 mg/dL 8.6-10.3 Total Protein 6.6 g/dL 6.4-8.9 Albumin 3.8 g/dL 3.2-5.2 Globulin 2.8 g/dL 2-4 Albumin/Globulin Ratio 1.4 1-3 Total Bilirubin 0.40 mg/dL 0.2-1.0 Alkaline Phosphatase 61 U/L 34-104 Alt 19 U/L 7-52 Ast 21 U/L 13-39 Egfr Non- 57.8 >60 Egfr 74.3 >60 45 Laboratory test finding 05/09/2014 Erythrocyte Sed Rate 27 mm/Hr 0-40 CBC Auto Diff 05/09/2014 White Blood Count 5.2 10^3/uL 4.8-10.8 Red Blood Count 4.12 10^6/uL 4.0-5.4 Hemoglobin 13.0 g/dL 12.0-16.0 Hematocrit 38 % 35-47 Mean Corpuscular Volume 93 fL 80-97 Mean Corpuscular Hemoglobin 32 pg High 27-31 Mean Corpuscular HGB Conc 34 g/dL 31-36 Red Cell Distribution Width 15 % 10.5-15 Platelet Count 227 10^3/uL 150-450 Mean Platelet Volume 8 um3 7.4-10.4 Abs Neutrophils 2.4 10^3/uL 1.5-7.7 Abs Lymphocytes 2.1 10^3/uL 1.0-4.8 Abs Monocytes 0.5 10^3/uL 0-0.8 Abs Eosinophils 0.1 10^3/uL 0-0.6 Abs Basophils 0 10^3/uL 0-0.2 Abs Nucleated RBC 0 10^3/uL Granulocyte % 46.6 % 38-83 Lymphocyte % 39.5 % 25-47 Monocyte % 10.3 % High 1-9 Eosinophil % 2.8 % 0-6 Basophil % 0.8 % 0-2 Nucleated Red Blood Cells % 0.1 Laboratory test finding 05/09/2014 C Reactive Protein 1.45 mg/L < 5.00 46 Comp Metabolic Panel 01/15/2014 Sodium 137 mmol/L 133-145 Potassium 4.4 mmol/L 3.7-5.6 Chloride 101 mmol/L 101-111 Co2 Carbon Dioxide 31 mmol/L 22-32 Anion Gap 5 mmol/L 2-11 Glucose 84 mg/dL 70-100 Blood Urea Nitrogen 18 mg/dL 6-24 Creatinine 0.91 mg/dL 0.51-0.95 BUN/Creatinine Ratio 19.8 8-20 Calcium 9.5 mg/dL 8.6-10.3 Total Protein 6.7 g/dL 6.4-8.9 Albumin 4.0 g/dL 3.2-5.2 Globulin 2.7 g/dL 2-4 Albumin/Globulin Ratio 1.5 1-3 Total Bilirubin 0.40 mg/dL 0.2-1.0 Alkaline Phosphatase 61 U/L 34-104 Alt 22 U/L 7-52 Ast 21 U/L 13-39 Egfr Non- 61.5 >60 Egfr 79.1 >60 47 Laboratory test finding 01/15/2014 C Reactive Protein 1.10 mg/L < 5.00 48 CBC Auto Diff 01/15/2014 White Blood Count 4.7 10^3/uL Low 4.8-10.8 Red Blood Count 4.23 10^6/uL 4.0-5.4 Hemoglobin 13.5 g/dL 12.0-16.0 Hematocrit 39 % 35-47 Mean Corpuscular Volume 92 fL 80-97 Mean Corpuscular Hemoglobin 32 pg High 27-31 Mean Corpuscular HGB Conc 35 g/dL 31-36 Red Cell Distribution Width 14 % 10.5-15 Platelet Count 218 10^3/uL 150-450 Mean Platelet Volume 8 um3 7.4-10.4 Abs Neutrophils 2.3 10^3/uL 1.5-7.7 Abs Lymphocytes 1.7 10^3/uL 1.0-4.8 Abs Monocytes 0.5 10^3/uL 0-0.8 Abs Eosinophils 0.1 10^3/uL 0-0.6 Abs Basophils 0.1 10^3/uL 0-0.2 Abs Nucleated RBC 0 10^3/uL Granulocyte % 48.3 % 38-83 Lymphocyte % 36.8 % 25-47 Monocyte % 11.3 % High 1-9 Eosinophil % 2.5 % 0-6 Basophil % 1.1 % 0-2 Nucleated Red Blood Cells % 0 Laboratory test finding 01/15/2014 Erythrocyte Sed Rate 22 mm/Hr 0-40 Vitamin D, 25 Hydroxy 01/15/2014 25-Hydroxy Vitamin D2 <4.0 ng/mL 25-Hydroxy Vitamin D3 34 ng/mL 25-Hydroxy Vitamin D Total 34 ng/mL 49 Comp Metabolic Panel 11/23/2013 Sodium 140 mmol/L 133-145 Potassium 4.1 mmol/L 3.7-5.6 Chloride 103 mmol/L 101-111 Co2 Carbon Dioxide 32 mmol/L 22-32 Anion Gap 5 mmol/L 2-11 Glucose 83 mg/dL 70-100 Blood Urea Nitrogen 16 mg/dL 6-24 Creatinine 0.90 mg/dL 0.51-0.95 BUN/Creatinine Ratio 17.8 8-20 Calcium 9.0 mg/dL 8.6-10.3 Total Protein 6.7 g/dL 6.4-8.9 Albumin 4.0 g/dL 3.2-5.2 Globulin 2.7 g/dL 2-4 Albumin/Globulin Ratio 1.5 1-3 Total Bilirubin 0.40 mg/dL 0.2-1.0 Alkaline Phosphatase 59 U/L 34-104 Alt 20 U/L 7-52 Ast 19 U/L 13-39 Egfr Non- 62.3 >60 Egfr 80.1 >60 50 Laboratory test finding 11/23/2013 C Reactive Protein < 1.00 mg/L &lt ; 5.00 51 CBC Auto Diff 11/23/2013 White Blood Count 4.5 10^3/uL Low 4.8-10.8 Red Blood Count 4.37 10^6/uL 4.0-5.4 Hemoglobin 13.8 g/dL 12.0-16.0 Hematocrit 41 % 35-47 Mean Corpuscular Volume 93 fL 80-97 Mean Corpuscular Hemoglobin 32 pg High 27-31 Mean Corpuscular HGB Conc 34 g/dL 31-36 Red Cell Distribution Width 14 % 10.5-15 Platelet Count 232 10^3/uL 150-450 Mean Platelet Volume 8 um3 7.4-10.4 Abs Neutrophils 2.1 10^3/uL 1.5-7.7 Abs Lymphocytes 1.7 10^3/uL 1.0-4.8 Abs Monocytes 0.5 10^3/uL 0-0.8 Abs Eosinophils 0.1 10^3/uL 0-0.6 Abs Basophils 0 10^3/uL 0-0.2 Abs Nucleated RBC 0 10^3/uL Granulocyte % 47.5 % 38-83 Lymphocyte % 37.5 % 25-47 Monocyte % 11.0 % High 1-9 Eosinophil % 3.3 % 0-6 Basophil % 0.7 % 0-2 Nucleated Red Blood Cells % 0.1 Laboratory test finding 11/23/2013 Erythrocyte Sed Rate 27 mm/Hr 0-40 Comp Metabolic Panel 09/01/2013 Sodium 138 mmol/L 133-145 Potassium 4.3 mmol/L 3.5-5.0 Chloride 101 mmol/L 101-111 Co2 Carbon Dioxide 33.0 mmol/L High 22-32 Anion Gap 4.0 mmol/L 2-11 Glucose 72 mg/dL 70-100 Blood Urea Nitrogen 20 mg/dL 6-24 Creatinine 0.90 mg/dL 0.50-1.40 BUN/Creatinine Ratio 22.2 High 8-20 Calcium 9.7 mg/dL 8.1-9.9 Total Protein 7.2 g/dL 6.2-8.1 Albumin 4.0 g/dL 3.2-5.2 Globulin 3.2 g/dL 2-4 Albumin/Globulin Ratio 1.3 1-3 Total Bilirubin 0.5 mg/dL 0.4-1.5 Alkaline Phosphatase 59 U/L 30-110 Alt 30 U/L 14-54 Ast 24 U/L 12-42 Egfr Non- 62.3 >60 Egfr 80.1 >60 52 Laboratory test finding 09/01/2013 Erythrocyte Sed Rate 24 mm/Hr 0-40 CBC Auto Diff 09/01/2013 White Blood Count 5.7 10^3/uL 4.8-10.8 Red Blood Count 4.38 10^6/uL 4.0-5.4 Hemoglobin 13.0 g/dL 12.0-16.0 Hematocrit 41 % 35-47 Mean Corpuscular Volume 94 fL 80-97 Mean Corpuscular Hemoglobin 30 pg 27-31 Mean Corpuscular HGB Conc 31 g/dL 31-36 Red Cell Distribution Width 14 % 10.5-15 Platelet Count 228 10^3/uL 150-450 Mean Platelet Volume 9 um3 7.4-10.4 Abs Neutrophils 2.8 10^3/uL 1.5-7.7 Abs Lymphocytes 2.1 10^3/uL 1.0-4.8 Abs Monocytes 0.6 10^3/uL 0-0.8 Abs Eosinophils 0.1 10^3/uL 0-0.6 Abs Basophils 0 10^3/uL 0-0.2 Abs Nucleated RBC 0 10^3/uL Granulocyte % 49.2 % 38-83 Lymphocyte % 37.5 % 25-47 Monocyte % 10.4 % High 1-9 Eosinophil % 2.3 % 0-6 Basophil % 0.6 % 0-2 Nucleated Red Blood Cells % 0 Laboratory test 09/01/2013 C Reactive Protein < 0.5 mg/dL Less than 0.5 finding TSH (Thyroid Stimulating Horm) 1.77 miu/mL 0.34-5.60 CBC With Manual Diff 05/08/2013 White Blood Count 4.1 10^3/uL Low 4.8- 10.8 Red Blood Count 4.14 10^6/uL 4.0-5.4 Hemoglobin 13.5 g/dL 12.0-16.0 Hematocrit 40 % 35-47 Mean Corpuscular Volume 96 fL 80-97 Mean Corpuscular Hemoglobin 33 pg High 27-31 Mean Corpuscular HGB Conc 34 g/dL 31-36 Red Cell Distribution Width 14 % 10.5-15 Platelet Count 227 10^3/uL 150-450 Mean Platelet Volume 9 um3 7.4-10.4 Abs Neutrophils 1.7 10^3/uL 1.5-7.7 Abs Lymphocytes 1.8 10^3/uL 1.0-4.8 Abs Monocytes 0.5 10^3/uL 0-0.8 Abs Eosinophils 0.1 10^3/uL 0-0.6 Abs Basophils 0 10^3/uL 0-0.2 Abs Nucleated RBC 0 10^3/uL Granulocyte % 41.5 % 38-83 Lymphocyte % 42.8 % 25-47 Monocyte % 11.6 % High 1-9 Eosinophil % 3.0 % 0-6 Basophil % 1.1 % 0-2 Nucleated Red Blood Cells % 0.1 Laboratory test 05/08/2013 C Reactive Protein < 0.5 mg/dL Less than 0.5 finding Erythrocyte Sed Rate 23 mm/Hr 0-40 Comp Metabolic Panel 05/08/2013 Sodium 139 mmol/L 133-145 Potassium 4.3 mmol/L 3.5-5.0 Chloride 103 mmol/L 101-111 Co2 Carbon Dioxide 31.0 mmol/L 22-32 Anion Gap 5.0 mmol/L 2-11 Glucose 68 mg/dL Low 70-100 Blood Urea Nitrogen 18 mg/dL 6-24 Creatinine 0.90 mg/dL 0.50-1.40 BUN/Creatinine Ratio 20.0 8-20 Calcium 9.5 mg/dL 8.1-9.9 Total Protein 6.5 g/dL 6.2-8.1 Albumin 3.7 g/dL 3.2-5.2 Globulin 2.8 g/dL 2-4 Albumin/Globulin Ratio 1.3 1-3 Total Bilirubin 0.7 mg/dL 0.4-1.5 Alkaline Phosphatase 62 U/L 30-110 Alt 24 U/L 14-54 Ast 26 U/L 12-42 Egfr Non- 62.5 >60 Egfr 80.3 >60 53 Comp Metabolic Panel 02/02/2013 Sodium 141 mmol/L 133-145 Potassium 4.8 mmol/L 3.5-5.0 Chloride 106 mmol/L 101-111 Co2 Carbon Dioxide 27.0 mmol/L 22-32 Anion Gap 8.0 mmol/L 2-11 Glucose 94 mg/dL 70-100 Blood Urea Nitrogen 23 mg/dL 6-24 Creatinine 0.90 mg/dL 0.50-1.40 BUN/Creatinine Ratio 25.6 High 8-20 Calcium 9.8 mg/dL 8.1-9.9 Total Protein 6.9 g/dL 6.2-8.1 Albumin 3.6 g/dL 3.2-5.2 Globulin 3.3 g/dL 2-4 Albumin/Globulin Ratio 1.1 1-3 Total Bilirubin 0.7 mg/dL 0.4-1.5 Alkaline Phosphatase 62 U/L 30-110 Alt 26 U/L 14-54 Ast 26 U/L 12-42 Egfr Non- 62.5 >60 Egfr 80.3 >60 54 CBC Auto Diff 02/02/2013 White Blood Count 4.9 10^3/uL 4.8-10.8 Red Blood Count 4.24 10^6/uL 4.0-5.4 Hemoglobin 13.7 g/dL 12.0-16.0 Hematocrit 40 % 35-47 Mean Corpuscular Volume 95 fL 80-97 Mean Corpuscular Hemoglobin 32 pg High 27-31 Mean Corpuscular HGB Conc 34 g/dL 31-36 Red Cell Distribution Width 14 % 10.5-15 Platelet Count 210 10^3/uL 150-450 Mean Platelet Volume 8 um3 7.4-10.4 Abs Neutrophils 2.3 10^3/uL 1.5-7.7 Abs Lymphocytes 1.8 10^3/uL 1.0-4.8 Abs Monocytes 0.6 10^3/uL 0-0.8 Abs Eosinophils 0.1 10^3/uL 0-0.6 Abs Basophils 0 10^3/uL 0-0.2 Abs Nucleated RBC 0.01 10^3/uL Granulocyte % 47.3 % 38-83 Lymphocyte % 37.1 % 25-47 Monocyte % 12.3 % High 1-9 Eosinophil % 2.5 % 0-6 Basophil % 0.8 % 0-2 Nucleated Red Blood Cells % 0.2 Laboratory test finding 02/02/2013 Erythrocyte Sed Rate 23 mm/Hr 0-40 C Reactive Protein < 0.5 mg/dL Less than 0.5 CBC With Manual Diff 11/07/2012 White Blood Count 5.7 10^3/uL 4.8-10.8 Red Blood Count 4.17 10^6/uL 4.0-5.4 Hemoglobin 13.6 g/dL 12.0-16.0 Hematocrit 39 % 35-47 Mean Corpuscular Volume 95 fL 80-97 Mean Corpuscular Hemoglobin 33 pg High 27-31 Mean Corpuscular HGB Conc 34 g/dL 31-36 Red Cell Distribution Width 14 % 10.5-15 Platelet Count 234 10^3/uL 150-450 Mean Platelet Volume 8 um3 7.4-10.4 Abs Neutrophils 2.7 10^3/uL 1.5-7.7 Abs Lymphocytes 2.4 10^3/uL 1.0-4.8 Abs Monocytes 0.5 10^3/uL 0-0.8 Abs Eosinophils 0.1 10^3/uL 0-0.6 Abs Basophils 0 10^3/uL 0-0.2 Abs Nucleated RBC 0 10^3/uL Neutrophil % 43 % 38-83 Lymphocytes % 52 % High 25-47 Monocytes % 3 % 0-13 Eosinophils % 2 % 0-6 RBC Morphology Normal Normal Basic Metabolic Panel 11/07/2012 Sodium 139 mmol/L 133-145 Potassium 4.5 mmol/L 3.5-5.0 Chloride 102 mmol/L 101-111 Co2 Carbon Dioxide 31.0 mmol/L 22-32 Anion Gap 6.0 mmol/L 2-11 Glucose 116 mg/dL High 70-100 Blood Urea Nitrogen 20 mg/dL 6-24 Creatinine 1.00 mg/dL 0.50-1.40 BUN/Creatinine Ratio 20.0 8-20 Calcium 9.6 mg/dL 8.1-9.9 Egfr Non- 55.3 >60 Egfr 71.1 >60 55 Liver Function Panel 11/07/2012 Total Protein 6.4 g/dL 6.2-8.1 Albumin 3.6 g/dL 3.2-5.2 Globulin 2.8 g/dL 2-4 Albumin/Globulin Ratio 1.3 1-3 Total Bilirubin 0.6 mg/dL 0.4-1.5 Direct Bilirubin 0 mg/dL Low 0.1-0.5 Indirect Bilirubin (SEE NOTE) mg/dL 0.3-1.0 56 Alkaline Phosphatase 70 U/L 30-110 Alt 28 U/L 14-54 Ast 23 U/L 12-42 Laboratory test finding 11/07/2012 Erythrocyte Sed Rate 28 mm/Hr 0-40 57 Pathologist Review (SEE NOTE) 58 Laboratory test 11/07/2012 C Reactive Protein < 0.5 mg/dL Less than 0.5 finding Laboratory test 07/18/2012 C Reactive Protein < 0.5 mg/dL Less than 0.5 finding CBC Auto Diff 07/18/2012 White Blood Count 5.0 10^3/uL 4.8-10.8 Red Blood Count 4.11 10^6/uL 4.0-5.4 Hemoglobin 13.3 g/dL 12.0-16.0 Hematocrit 39 % 35-47 Mean Corpuscular Volume 95 fL 80-97 Mean Corpuscular Hemoglobin 32 pg High 27-31 Mean Corpuscular HGB Conc 34 g/dL 31-36 Red Cell Distribution Width 14 % 10.5-15 Platelet Count 221 10^3/uL 150-450 Mean Platelet Volume 9 um3 7.4-10.4 Abs Neutrophils 2.6 10^3/uL 1.5-7.7 Abs Lymphocytes 1.9 10^3/uL 1.0-4.8 Abs Monocytes 0.4 10^3/uL 0-0.8 Abs Eosinophils 0.1 10^3/uL 0-0.6 Abs Basophils 0 10^3/uL 0-0.2 Abs Nucleated RBC 0 10^3/uL Granulocyte % 51.3 % 38-83 Lymphocyte % 37.3 % 25-47 Monocyte % 8.5 % 1-9 Eosinophil % 2.2 % 0-6 Basophil % 0.7 % 0-2 Nucleated Red Blood Cells % 0.1 Liver Function Panel 07/18/2012 Total Protein 6.4 g/dL 6.2-8.1 Albumin 3.8 g/dL 3.2-5.2 Globulin 2.6 g/dL 2-4 Albumin/Globulin Ratio 1.5 1-3 Total Bilirubin 0.5 mg/dL 0.4-1.5 Direct Bilirubin 0 mg/dL Low 0.1-0.5 Alkaline Phosphatase 64 U/L 30-110 Alt 33 U/L 14-54 Ast 27 U/L 12-42 Laboratory test finding 07/18/2012 Erythrocyte Sed Rate 21 mm/Hr 0-40 Basic Metabolic Panel 07/18/2012 Sodium 137 mmol/L 133-145 Potassium 4.0 mmol/L 3.5-5.0 Chloride 102 mmol/L 101-111 Co2 Carbon Dioxide 31.0 mmol/L 22-32 Anion Gap 4.0 mmol/L 2-11 Glucose 90 mg/dL 70-100 Blood Urea Nitrogen 18 mg/dL 6-24 Creatinine 1.00 mg/dL 0.50-1.40 BUN/Creatinine Ratio 18.0 8-20 Calcium 9.5 mg/dL 8.1-9.9 Egfr Non- 55.5 >60 Egfr 71.3 >60 59 Laboratory test 04/26/2012 C Reactive Protein < 0.5 mg/dL Less Than 0.5 finding Erythrocyte Sed Rate 25 MM/HR 0-40 Liver Function Panel 04/26/2012 Total Protein 6.8 GM/DL 6.2-8.1 Albumin 4.0 GM/DL 3.2-5.2 Globulin 2.8 GM/DL 2-4 Albumin/Globulin Ratio 1.4 1-3 Bilirubin Total 0.7 mg/dL 0.4-1.5 60 Bilirubin Direct 0.1 mg/dL 0.1-0.5 Indirect Bilirubin 0.6 mg/dL 0.3-1.0 61 Alkaline Phosphatase 69 U/L 30-110 Alt (SGPT) 38 U/L 14-54 Ast (Sgot) 29 U/L 12-42 CBC With Manual Diff 04/26/2012 White Blood Count 7.2 CUMM 4.8-10.8 Red Cell Count 4.15 CUMM Low 4.2-5.4 Hemoglobin 13.3 g/dL 12.0-16.0 Hematocrit 39 % 35-47 Mean Corpuscular Volume 95 um3 79-97 Mean Corpuscular Hemoglob 32 pg High 27-31 Mean Corpuscular HGB Cone 34 g/dL 32-36 Redcell Distribution WDTH 14 % 10.5-15 Platelet Count 218 CUMM 150-450 Mean Platelet Volume 8.6 um3 7.4-10.4 Absolute Neutrophil Count 5.0 1.5-7.7 Polysegmented Neutrophil 69 % 38-83 Lymphocyte 28 % 25-47 Monocyte 3 % 0-13 RBC Morphology NORMAL Basic Metabolic Panel 04/26/2012 Sodium 138 mmol/L 135-145 Potassium 4.8 mmol/L 3.5-5.0 Chloride 102 mmol/L 101-111 Co2 (Carbon Dioxide) 30.0 mmol/L 22-32 Anion Gap 6.0 mmol/L 2-11 62 Glucose 92 mg/dL 70-100 BUN 19 mg/dL 6-24 Creatinine 1.0 mg/dL 0.50-1.40 One Over Creatinine 1.00 BUN/Creatinine Ratio 19.0 8-20 Calcium 9.5 mg/dL 8.1-9.9 eGFR Non- 55.5 > 60 eGFR 71.3 > 60 63 CBC With Manual Diff 02/04/2012 White Blood Count 5.1 CUMM 4.8-10.8 Red Cell Count 3.95 CUMM Low 4.2-5.4 Hemoglobin 12.5 g/dL 12.0-16.0 Hematocrit 37 % 35-47 Mean Corpuscular Volume 93 um3 79-97 Mean Corpuscular Hemoglob 32 pg High 27-31 Mean Corpuscular HGB Cone 34 g/dL 32-36 Redcell Distribution WDTH 14 % 10.5-15 Platelet Count 243 CUMM 150-450 Mean Platelet Volume 8.6 um3 7.4-10.4 Absolute Neutrophil Count 2.3 1.5-7.7 Polysegmented Neutrophil 48 % 38-83 Lymphocyte 37 % 25-47 Monocyte 13 % 0-13 Eosinophil 1 % 0-6 Basophil 1 % 0-2 RBC Morphology NORMAL Laboratory test finding 02/04/2012 Erythrocyte Sed Rate 28 MM/HR 0-40 Basic Metabolic Panel 02/04/2012 Sodium 137 mmol/L 135-145 Potassium 4.4 mmol/L 3.5-5.0 Chloride 104 mmol/L 101-111 Co2 (Carbon Dioxide) 30.0 mmol/L 22-32 Anion Gap 3.0 mmol/L 2-11 64 Glucose 112 mg/dL High 70-100 BUN 16 mg/dL 6-24 Creatinine 1.0 mg/dL 0.50-1.40 One Over Creatinine 1.00 BUN/Creatinine Ratio 16.0 8-20 Calcium 9.2 mg/dL 8.1-9.9 eGFR Non- 55.5 > 60 eGFR 71.3 > 60 65 Liver Function Panel 02/04/2012 Total Protein 6.5 GM/DL 6.2-8.1 Albumin 3.6 GM/DL 3.2-5.2 Globulin 2.9 GM/DL 2-4 Albumin/Globulin Ratio 1.2 1-3 Bilirubin Total 0.5 mg/dL 0.4-1.5 66 Bilirubin Direct 0.1 mg/dL 0.1-0.5 Indirect Bilirubin 0.4 mg/dL 0.3-1.0 67 Alkaline Phosphatase 61 U/L 30-110 Alt (SGPT) 33 U/L 14-54 Ast (Sgot) 24 U/L 12-42 Laboratory test 02/04/2012 C Reactive Protein < 0.5 mg/dL Less Than 0.5 finding Laboratory test 06/22/2007 C Reactive Protein < 0.5 mg/dL Less Than 0.5 finding Basic Metabolic Panel 06/22/2007 One Over Creatinine 0.90 Anion Gap 5.0 mmol/L 2-11 68 BUN 21 mg/dL 6-24 Calcium 9.0 mg/dL 8.7-10.2 Chloride 103 mmol/L 101-111 Co2 (Carbon Dioxide) 28.0 mmol/L 22-32 Glucose 82 mg/dL 70-105 Potassium 4.2 mmol/L 3.5-5.0 Sodium 136 mmol/L 135-145 BUN/Creatinine Ratio 19.1 8-20 Creatinine 1.1 mg/dL 0.5-1.4 Liver Function Panel 06/22/2007 Albumin/Globulin Ratio 1.1 1-3 Albumin 3.4 GM/DL 3.2-5.2 Alkaline Phosphatase 87 U/L 30-110 Alt (SGPT) 20 U/L 14-54 Ast (Sgot) 21 U/L 12-42 Bilirubin Direct 0.1 mg/dL 0.1-0.5 Globulin 3.0 GM/DL 2-4 Indirect Bilirubin 0.6 mg/dL 0.1-0.75 Bilirubin Total 0.7 mg/dL 0.4-1.5 Total Protein 6.4 GM/DL 6.2-8.1 CBC With Electronic Diff 06/22/2007 White Blood Count 5.0 CUMM 4.8-10.8 Abs Basophils 0 0-0.2 Abs Eosinophils 0.2 0-0.6 Absolute Neutrophil Count 2.6 1.5-7.7 Abs Lymphs 1.6 1.0-4.8 Abs Mononuclear 0.6 0-0.8 Basophil % 0.5 % 0-2 Hematocrit 37 % 35-47 Hemoglobin 12.7 g/dL 12.0-16.0 Eosinophil % 3.9 % 0-6 Gran % 51.4 % 38-83 Lymph % 31.7 % 20-45 Mean Corpuscular HGB Cone 34 g/dL 32-36 Mean Corpuscular Hemoglob 31 pg 27-31 Mean Corpuscular Volume 92 um3 79-97 Mean Platelet Volume 8.2 um3 7.4-10.4 Mononuclear % 12.5 % High 1-9 Platelet Count 276 CUMM 150-450 Red Cell Count 4.05 CUMM Low 4.2-5.4 Redcell Distribution WDTH 15 % 10.5-15 Laboratory test 06/22/2007 Erythrocyte Sed Rate 23 MM/HR 0-30 finding Laboratory test 05/31/2007 Erythrocyte Sed Rate 24 MM/HR 0-30 finding Laboratory test 05/31/2007 C Reactive Protein < 0.5 mg/dL Less Than 0.5 finding Basic Metabolic 05/31/2007 One Over Creatinine 0.90 Panel Anion Gap 3.0 mmol/L 2-11 69 BUN 22 mg/dL 6-24 Calcium 9.2 mg/dL 8.7-10.2 Chloride 107 mmol/L 101-111 Co2 (Carbon Dioxide) 29.0 mmol/L 22-32 Glucose 85 mg/dL 70-105 Potassium 4.2 mmol/L 3.5-5.0 Sodium 139 mmol/L 135-145 BUN/Creatinine Ratio 20.0 8-20 Creatinine 1.1 mg/dL 0.5-1.4 Liver Function Panel 05/31/2007 Albumin/Globulin Ratio 1.2 1-3 Albumin 3.6 GM/DL 3.2-5.2 Alkaline Phosphatase 96 U/L 30-110 Alt (SGPT) 24 U/L 14-54 Ast (Sgot) 20 U/L 12-42 Bilirubin Direct < 0.1 mg/dL Low 0.1-0.5 Globulin 3.1 GM/DL 2-4 Bilirubin Total 0.5 mg/dL 0.4-1.5 Total Protein 6.7 GM/DL 6.2-8.1 CBC W/ Electronic Diff 05/31/2007 White Blood Count 5.4 CUMM 4.8-10.8 Abs Basophils 0 0-0.2 Abs Eosinophils 0.2 0-0.6 Absolute Neutrophil Count 3.1 1.5-7.7 Abs Lymphs 1.7 1.0-4.8 Abs Mononuclear 0.4 0-0.8 Basophil % 0.7 % 0-2 Hematocrit 39 % 35-47 Hemoglobin 13.1 g/dL 12.0-16.0 Eosinophil % 3.3 % 0-6 Gran % 56.5 % 38-83 Lymph % 32.0 % 20-45 Mean Corpuscular HGB Cone 34 g/dL 32-36 Mean Corpuscular Hemoglob 31 pg 27-31 Mean Corpuscular Volume 91 um3 79-97 Mean Platelet Volume 8.5 um3 7.4-10.4 Mononuclear % 7.5 % 1-9 Platelet Count 296 CUMM 150-450 Red Cell Count 4.26 CUMM 4.2-5.4 Redcell Distribution WDTH 17 % High 10.5-15 1 PAIN IN RIGHT KNEE, EFFUSION, RIGHT KNEE, BILATERA 2 Because ethnic data is not always readily available, this report includes an eGFR for both -Americans and non- Americans. The National Kidney Disease Education Program (NKDEP) does not endorse the use of the MDRD equation for patients that are not between the ages of 18 and 70, are , have extremes of body size, muscle mass, or nutritional status, or are non- or non-. According to the National Kidney Foundation, irrespective of diagnosis, the stage of the disease is based on the level of kidney function: Stage Description GFR(mL/min/1.73 m(2)) 1 Kidney damage with normal or decreased GFR 90 2 Kidney damage with mild decrease in GFR 60-89 3 Moderate decrease in GFR 30-59 4 Severe decrease in GFR 15-29 5 Kidney failure <15 (or dialysis) 3 *Ascorbic acid is present which may interfere with detection of blood. 4 Because ethnic data is not always readily available, this report includes an eGFR for both -Americans and non- Americans. The National Kidney Disease Education Program (NKDEP) does not endorse the use of the MDRD equation for patients that are not between the ages of 18 and 70, are , have extremes of body size, muscle mass, or nutritional status, or are non- or non-. According to the National Kidney Foundation, irrespective of diagnosis, the stage of the disease is based on the level of kidney function: Stage Description GFR(mL/min/1.73 m(2)) 1 Kidney damage with normal or decreased GFR 90 2 Kidney damage with mild decrease in GFR 60-89 3 Moderate decrease in GFR 30-59 4 Severe decrease in GFR 15-29 5 Kidney failure <15 (or dialysis) 5 Acute inflammation: >10.00 6 Standing Order Entered 12/15/16 Expires 06/09/17 Non-Fasting 7 Desirable <150 Borderline high 150-199 High 200-499 Very High >500 8 Desirable <200 Borderline high 200-239 High >239 9 Low <40 Desirable: 40-60 High: >60 10 Desirable: <100 mg/dL Near Optimal: 100-129 mg/dL Borderline High: 130-159 mg/dL High: 160-189 mg/dL Very High: >189 mg/dL 11 Because ethnic data is not always readily available, this report includes an eGFR for both -Americans and non- Americans. The National Kidney Disease Education Program (NKDEP) does not endorse the use of the MDRD equation for patients that are not between the ages of 18 and 70, are , have extremes of body size, muscle mass, or nutritional status, or are non- or non-. According to the National Kidney Foundation, irrespective of diagnosis, the stage of the disease is based on the level of kidney function: Stage Description GFR(mL/min/1.73 m(2)) 1 Kidney damage with normal or decreased GFR 90 2 Kidney damage with mild decrease in GFR 60-89 3 Moderate decrease in GFR 30-59 4 Severe decrease in GFR 15-29 5 Kidney failure <15 (or dialysis) 12 Acute inflammation: >10.00 13 Standing Order Entered 12/15/16 Expires 06/09/17 Non-Fasting 14 Because ethnic data is not always readily available, this report includes an eGFR for both -Americans and non- Americans. The National Kidney Disease Education Program (NKDEP) does not endorse the use of the MDRD equation for patients that are not between the ages of 18 and 70, are , have extremes of body size, muscle mass, or nutritional status, or are non- or non-. According to the National Kidney Foundation, irrespective of diagnosis, the stage of the disease is based on the level of kidney function: Stage Description GFR(mL/min/1.73 m(2)) 1 Kidney damage with normal or decreased GFR 90 2 Kidney damage with mild decrease in GFR 60-89 3 Moderate decrease in GFR 30-59 4 Severe decrease in GFR 15-29 5 Kidney failure <15 (or dialysis) 15 Acute inflammation: >10.00 16 Because ethnic data is not always readily available, this report includes an eGFR for both -Americans and non- Americans. The National Kidney Disease Education Program (NKDEP) does not endorse the use of the MDRD equation for patients that are not between the ages of 18 and 70, are , have extremes of body size, muscle mass, or nutritional status, or are non- or non-. According to the National Kidney Foundation, irrespective of diagnosis, the stage of the disease is based on the level of kidney function: Stage Description GFR(mL/min/1.73 m(2)) 1 Kidney damage with normal or decreased GFR 90 2 Kidney damage with mild decrease in GFR 60-89 3 Moderate decrease in GFR 30-59 4 Severe decrease in GFR 15-29 5 Kidney failure <15 (or dialysis) 17 standing order 18 Acute inflammation: >10.00 19 Because ethnic data is not always readily available, this report includes an eGFR for both -Americans and non- Americans. The National Kidney Disease Education Program (NKDEP) does not endorse the use of the MDRD equation for patients that are not between the ages of 18 and 70, are , have extremes of body size, muscle mass, or nutritional status, or are non- or non-. According to the National Kidney Foundation, irrespective of diagnosis, the stage of the disease is based on the level of kidney function: Stage Description GFR(mL/min/1.73 m(2)) 1 Kidney damage with normal or decreased GFR 90 2 Kidney damage with mild decrease in GFR 60-89 3 Moderate decrease in GFR 30-59 4 Severe decrease in GFR 15-29 5 Kidney failure <15 (or dialysis) 20 STANDING ORDER Q 4-6 WEEKS ENTERED 04/28/2016 EXPIRES 10/21/2016 21 Acute inflammation: >10.00 22 Because ethnic data is not always readily available, this report includes an eGFR for both -Americans and non- Americans. The National Kidney Disease Education Program (NKDEP) does not endorse the use of the MDRD equation for patients that are not between the ages of 18 and 70, are , have extremes of body size, muscle mass, or nutritional status, or are non- or non-. According to the National Kidney Foundation, irrespective of diagnosis, the stage of the disease is based on the level of kidney function: Stage Description GFR(mL/min/1.73 m(2)) 1 Kidney damage with normal or decreased GFR 90 2 Kidney damage with mild decrease in GFR 60-89 3 Moderate decrease in GFR 30-59 4 Severe decrease in GFR 15-29 5 Kidney failure <15 (or dialysis) 23 Acute inflammation: >10.00 24 STANDING ORDER Q 4-6 WEEKS ENTERED 04/28/2016 EXPIRES 10/21/2016 25 Because ethnic data is not always readily available, this report includes an eGFR for both -Americans and non- Americans. The National Kidney Disease Education Program (NKDEP) does not endorse the use of the MDRD equation for patients that are not between the ages of 18 and 70, are , have extremes of body size, muscle mass, or nutritional status, or are non- or non-. According to the National Kidney Foundation, irrespective of diagnosis, the stage of the disease is based on the level of kidney function: Stage Description GFR(mL/min/1.73 m(2)) 1 Kidney damage with normal or decreased GFR 90 2 Kidney damage with mild decrease in GFR 60-89 3 Moderate decrease in GFR 30-59 4 Severe decrease in GFR 15-29 5 Kidney failure <15 (or dialysis) 26 Acute inflammation: >10.00 27 Because ethnic data is not always readily available, this report includes an eGFR for both -Americans and non- Americans. The National Kidney Disease Education Program (NKDEP) does not endorse the use of the MDRD equation for patients that are not between the ages of 18 and 70, are , have extremes of body size, muscle mass, or nutritional status, or are non- or non-. According to the National Kidney Foundation, irrespective of diagnosis, the stage of the disease is based on the level of kidney function: Stage Description GFR(mL/min/1.73 m(2)) 1 Kidney damage with normal or decreased GFR 90 2 Kidney damage with mild decrease in GFR 60-89 3 Moderate decrease in GFR 30-59 4 Severe decrease in GFR 15-29 5 Kidney failure <15 (or dialysis) 28 Acute inflammation: >10.00 29 Standing Order Valid 10/15/15-04/16/16 30 1x order 31 1x order 32 1x order 33 Acute inflammation: >10.00 34 Standing orders q4-6 weeks or as directed. 35 Because ethnic data is not always readily available, this report includes an eGFR for both -Americans and non- Americans. The National Kidney Disease Education Program (NKDEP) does not endorse the use of the MDRD equation for patients that are not between the ages of 18 and 70, are , have extremes of body size, muscle mass, or nutritional status, or are non- or non-. According to the National Kidney Foundation, irrespective of diagnosis, the stage of the disease is based on the level of kidney function: Stage Description GFR(mL/min/1.73 m(2)) 1 Kidney damage with normal or decreased GFR 90 2 Kidney damage with mild decrease in GFR 60-89 3 Moderate decrease in GFR 30-59 4 Severe decrease in GFR 15-29 5 Kidney failure <15 (or dialysis) 36 Because ethnic data is not always readily available, this report includes an eGFR for both -Americans and non- Americans. The National Kidney Disease Education Program (NKDEP) does not endorse the use of the MDRD equation for patients that are not between the ages of 18 and 70, are , have extremes of body size, muscle mass, or nutritional status, or are non- or non-. According to the National Kidney Foundation, irrespective of diagnosis, the stage of the disease is based on the level of kidney function: Stage Description GFR(mL/min/1.73 m(2)) 1 Kidney damage with normal or decreased GFR 90 2 Kidney damage with mild decrease in GFR 60-89 3 Moderate decrease in GFR 30-59 4 Severe decrease in GFR 15-29 5 Kidney failure <15 (or dialysis) 37 Acute inflammation: >10.00 38 Standing orders q4-6 weeks or as directed. Copy Result to: SUHAIL ROUSE ([id number]) 39 Because ethnic data is not always readily available, this report includes an eGFR for both -Americans and non- Americans. The National Kidney Disease Education Program (NKDEP) does not endorse the use of the MDRD equation for patients that are not between the ages of 18 and 70, are , have extremes of body size, muscle mass, or nutritional status, or are non- or non-. According to the National Kidney Foundation, irrespective of diagnosis, the stage of the disease is based on the level of kidney function: Stage Description GFR(mL/min/1.73 m(2)) 1 Kidney damage with normal or decreased GFR 90 2 Kidney damage with mild decrease in GFR 60-89 3 Moderate decrease in GFR 30-59 4 Severe decrease in GFR 15-29 5 Kidney failure <15 (or dialysis) 40 Acute inflammation: >10.00 41 Because ethnic data is not always readily available, this report includes an eGFR for both -Americans and non- Americans. The National Kidney Disease Education Program (NKDEP) does not endorse the use of the MDRD equation for patients that are not between the ages of 18 and 70, are , have extremes of body size, muscle mass, or nutritional status, or are non- or non-. According to the National Kidney Foundation, irrespective of diagnosis, the stage of the disease is based on the level of kidney function: Stage Description GFR(mL/min/1.73 m(2)) 1 Kidney damage with normal or decreased GFR 90 2 Kidney damage with mild decrease in GFR 60-89 3 Moderate decrease in GFR 30-59 4 Severe decrease in GFR 15-29 5 Kidney failure <15 (or dialysis) 42 Acute inflammation: >10.00 43 Because ethnic data is not always readily available, this report includes an eGFR for both -Americans and non- Americans. The National Kidney Disease Education Program (NKDEP) does not endorse the use of the MDRD equation for patients that are not between the ages of 18 and 70, are , have extremes of body size, muscle mass, or nutritional status, or are non- or non-. According to the National Kidney Foundation, irrespective of diagnosis, the stage of the disease is based on the level of kidney function: Stage Description GFR(mL/min/1.73 m(2)) 1 Kidney damage with normal or decreased GFR 90 2 Kidney damage with mild decrease in GFR 60-89 3 Moderate decrease in GFR 30-59 4 Severe decrease in GFR 15-29 5 Kidney failure <15 (or dialysis) 44 Acute inflammation: >10.00 45 Because ethnic data is not always readily available, this report includes an eGFR for both -Americans and non- Americans. The National Kidney Disease Education Program (NKDEP) does not endorse the use of the MDRD equation for patients that are not between the ages of 18 and 70, are , have extremes of body size, muscle mass, or nutritional status, or are non- or non-. According to the National Kidney Foundation, irrespective of diagnosis, the stage of the disease is based on the level of kidney function: Stage Description GFR(mL/min/1.73 m(2)) 1 Kidney damage with normal or decreased GFR 90 2 Kidney damage with mild decrease in GFR 60-89 3 Moderate decrease in GFR 30-59 4 Severe decrease in GFR 15-29 5 Kidney failure <15 (or dialysis) 46 Acute inflammation: >10.00 47 Because ethnic data is not always readily available, this report includes an eGFR for both -Americans and non- Americans. The National Kidney Disease Education Program (NKDEP) does not endorse the use of the MDRD equation for patients that are not between the ages of 18 and 70, are , have extremes of body size, muscle mass, or nutritional status, or are non- or non-. According to the National Kidney Foundation, irrespective of diagnosis, the stage of the disease is based on the level of kidney function: Stage Description GFR(mL/min/1.73 m(2)) 1 Kidney damage with normal or decreased GFR 90 2 Kidney damage with mild decrease in GFR 60-89 3 Moderate decrease in GFR 30-59 4 Severe decrease in GFR 15-29 5 Kidney failure <15 (or dialysis) 48 Acute inflammation: >10.00 49 -- REFERENCE VALUE -- 25-HYDROXY D TOTAL (D2+D3) Optimum levels in the healthy population are 20-50, patients with bone disease may benefit from higher levels within this range. Test Performed by: [address] [address] Mobile Qa Tester: Rashard Avendaño III, M.D. 50 Because ethnic data is not always readily available, this report includes an eGFR for both -Americans and non- Americans. The National Kidney Disease Education Program (NKDEP) does not endorse the use of the MDRD equation for patients that are not between the ages of 18 and 70, are , have extremes of body size, muscle mass, or nutritional status, or are non- or non-. According to the National Kidney Foundation, irrespective of diagnosis, the stage of the disease is based on the level of kidney function: Stage Description GFR(mL/min/1.73 m(2)) 1 Kidney damage with normal or decreased GFR 90 2 Kidney damage with mild decrease in GFR 60-89 3 Moderate decrease in GFR 30-59 4 Severe decrease in GFR 15-29 5 Kidney failure <15 (or dialysis) 51 Acute inflammation: >10.00 52 Because ethnic data is not always readily available, this report includes an eGFR for both -Americans and non- Americans. The National Kidney Disease Education Program (NKDEP) does not endorse the use of the MDRD equation for patients that are not between the ages of 18 and 70, are , have extremes of body size, muscle mass, or nutritional status, or are non- or non-. According to the National Kidney Foundation, irrespective of diagnosis, the stage of the disease is based on the level of kidney function: Stage Description GFR(mL/min/1.73 m(2)) 1 Kidney damage with normal or decreased GFR 90 2 Kidney damage with mild decrease in GFR 60-89 3 Moderate decrease in GFR 30-59 4 Severe decrease in GFR 15-29 5 Kidney failure <15 (or dialysis) 53 Because ethnic data is not always readily available, this report includes an eGFR for both -Americans and non- Americans. The National Kidney Disease Education Program (NKDEP) does not endorse the use of the MDRD equation for patients that are not between the ages of 18 and 70, are , have extremes of body size, muscle mass, or nutritional status, or are non- or non-. According to the National Kidney Foundation, irrespective of diagnosis, the stage of the disease is based on the level of kidney function: Stage Description GFR(mL/min/1.73 m(2)) 1 Kidney damage with normal or decreased GFR 90 2 Kidney damage with mild decrease in GFR 60-89 3 Moderate decrease in GFR 30-59 4 Severe decrease in GFR 15-29 5 Kidney failure <15 (or dialysis) 54 Because ethnic data is not always readily available, this report includes an eGFR for both -Americans and non- Americans. The National Kidney Disease Education Program (NKDEP) does not endorse the use of the MDRD equation for patients that are not between the ages of 18 and 70, are , have extremes of body size, muscle mass, or nutritional status, or are non- or non-. According to the National Kidney Foundation, irrespective of diagnosis, the stage of the disease is based on the level of kidney function: Stage Description GFR(mL/min/1.73 m(2)) 1 Kidney damage with normal or decreased GFR 90 2 Kidney damage with mild decrease in GFR 60-89 3 Moderate decrease in GFR 30-59 4 Severe decrease in GFR 15-29 5 Kidney failure <15 (or dialysis) 55 Because ethnic data is not always readily available, this report includes an eGFR for both -Americans and non- Americans. The National Kidney Disease Education Program (NKDEP) does not endorse the use of the MDRD equation for patients that are not between the ages of 18 and 70, are , have extremes of body size, muscle mass, or nutritional status, or are non- or non-. According to the National Kidney Foundation, irrespective of diagnosis, the stage of the disease is based on the level of kidney function: Stage Description GFR(mL/min/1.73 m(2)) 1 Kidney damage with normal or decreased GFR 90 2 Kidney damage with mild decrease in GFR 60-89 3 Moderate decrease in GFR 30-59 4 Severe decrease in GFR 15-29 5 Kidney failure <15 (or dialysis) 56 UNABLE TO CALCULATE IND.BILI D.BILI IS <0.1 57 @11/07/12 1703: Path Review added. RFLXG=PATH. 58 CBC and smear reviewed. Inverted PMN/lymph ratio noted. No blasts seen. REVIEWED BY KOSTAS PATEL MD 59 Because ethnic data is not always readily available, this report includes an eGFR for both -Americans and non- Americans. The National Kidney Disease Education Program (NKDEP) does not endorse the use of the MDRD equation for patients that are not between the ages of 18 and 70, are , have extremes of body size, muscle mass, or nutritional status, or are non- or non-. According to the National Kidney Foundation, irrespective of diagnosis, the stage of the disease is based on the level of kidney function: Stage Description GFR(mL/min/1.73 m(2)) 1 Kidney damage with normal or decreased GFR 90 2 Kidney damage with mild decrease in GFR 60-89 3 Moderate decrease in GFR 30-59 4 Severe decrease in GFR 15-29 5 Kidney failure <15 (or dialysis) 60 A metabolite of Naproxen, O-desmethylnaproxen, has been shown to interfere with the Jendrassik-Mabscott method for measuring total bilirubin. Samples from patients who have taken Naproxen have shown spurious elevation in total bilirubin levels. 61 Please note updated reference range, effective 02/27/10 62 Anion gap measurement may be of limited value in the presence of any alkalosis, especially in a combined acid base disorder. . 63 Because ethnic data is not always readily available, this report includes an eGFR for both -Americans and non- Americans. The National Kidney Disease Education Program (NKDEP) does not endorse the use of the MDRD equation for patients that are not between the ages of 18 and 70, are , have extremes of body size, muscle mass, or nutritional status, or are non- or non-. According to the National Kidney Foundation, irrespective of diagnosis, the stage of the disease is based on the level of kidney function: Stage Description GFR(mL/min/1.73 m(2)) 1 Kidney damage with normal or decreased GFR 90 2 Kidney damage with mild decrease in GFR 60-89 3 Moderate decrease in GFR 30-59 4 Severe decrease in GFR 15-29 5 Kidney failure <15 (or dialysis) 64 Anion gap measurement may be of limited value in the presence of any alkalosis, especially in a combined acid base disorder. . 65 Because ethnic data is not always readily available, this report includes an eGFR for both -Americans and non- Americans. The National Kidney Disease Education Program (NKDEP) does not endorse the use of the MDRD equation for patients that are not between the ages of 18 and 70, are , have extremes of body size, muscle mass, or nutritional status, or are non- or non-. According to the National Kidney Foundation, irrespective of diagnosis, the stage of the disease is based on the level of kidney function: Stage Description GFR(mL/min/1.73 m(2)) 1 Kidney damage with normal or decreased GFR 90 2 Kidney damage with mild decrease in GFR 60-89 3 Moderate decrease in GFR 30-59 4 Severe decrease in GFR 15-29 5 Kidney failure <15 (or dialysis) 66 A metabolite of Naproxen, O-desmethylnaproxen, has been shown to interfere with the Jendrassik-Mabscott method for measuring total bilirubin. Samples from patients who have taken Naproxen have shown spurious elevation in total bilirubin levels. 67 Please note updated reference range, effective 02/27/10 68 Anion gap measurement may be of limited value in the presence of any alkalosis, especially in a combined acid base disorder. . 69 Anion gap measurement may be of limited value in the presence of any alkalosis, especially in a combined acid base disorder. . Procedures Date CPT Code Description Status 04/13/2017 Inject/Drain Joint/Bursa Major Completed 04/13/2017 Inject/Drain Joint/Bursa Major Completed 12/17/2016 Inject/Drain Joint/Bursa Major Completed 12/14/2016 Bone Mineral Density Test Completed 05/09/2015 Inject/Drain Joint/Bursa Major Completed 03/05/2014 Bone Mineral Density Test Completed Encounters Type Date Location Provider CPT E/M Dx Office Visit 07/12/2017 [facility] Sherie Elaine M.D. 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 Office Visit 12/07/2016 8:30a [facility] [employer] [address] M05.79 Of 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 Z79.899 M85.89 Office Visit 09/07/2016 11:00a [facility] Yvonne Lopez, [address]333 M05.79 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 [employer] M62.81 Z79.899 Office Visit 04/30/2016 9:00a [facility] Yvonne Lopez 78336 M05.79 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 [employer] M79.672 Z79.899 R06.02 Z23 Office Visit 01/27/2016 9:00a [facility] Yvonne Lopez 22962 M05.79 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 [employer] M25.569 Z79.899 Office Visit 10/23/2015 10:30a [facility] Yvonne Lopez [employer]CH[employer]IC 98479 M05.79 Of [facility] R53.83 Z79.899 E66.9 Office Visit 07/24/2015 9:30a Rheumatology Services QUINTEN HuttonP 99916 M05.79 Of [facility] R79.82 M17.12 R06.02 Z79.899 M17.0 Office Visit 05/20/2015 3:00p [facility] [address] M25.462 [facility] Office Visit 05/09/2015 9:30a [facility] [address] M17.12 [facility] 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 721.3 V58.69 Office Visit 06/05/2014 10:00a [facility] Of Yvonne LopezFILI 75330 714.0 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 Science Professor 721.3 733.90 V58.69 V03.82 V04.81 V06.6 Office Visit 02/26/2014 9:00a [facility] Of Yvonne LopezFILI 94825 714.0 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 Science Professor 721.3 733.90 V58.69 Office Visit 11/27/2013 9:30a [facility] Yvonne Lopez [employer] 06743 714.0 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 Science Professor 721.3 995.3 V58.69 733.90 Office Visit 09/04/2013 9:00a [facility] Of Yvonne Lopez [employer] 37807 714.0 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 32626 714.0 Of 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 Science Professor V58.69 721.3 Office Visit 08/25/2011 2:40p [facility] Services Todd Tong M.D. 44710 714.0 Of 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 Science Professor V58.69 Office Visit 05/19/2011 2:40p [facility] Services Todd Tong 30009 V04.81 Of Justino Chang 714.0 V58.69 Office Visit 04/29/2011 11:30a [facility] Of Jasiel Singh, 94118 715.96 C.MChristina Chang 836.0 Office Visit 02/23/2011 2:40p [facility] Services Todd Tong M.D. 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 37499 714.0 Of 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 Science Professor V58.69 Office Visit 10/01/2010 2:40p [facility] Todd Tong M.D. 07171 714.0 Of 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 Science Professor V58.69 Plan of Care Future Appointment(s):11/15/2017 8:30 am - FILI Hutton at [facility]-Pathwygng45/16/2018 11:00 am - TIFFANIE Morales at [facility]08/24/2017 11:00 am - Luis Vincent PA-C at [facility]08/24/2017 11:00 am - TIFFANIE Rocha at [facility].08/24/2017 11:00 am - Sherie Elaine M.D. at [facility].09/06/2017 9:45 am - 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 w/o org/sys involvNew Labs:CBC Auto DiffComp Metabolic PanelC Reactive ProteinErythrocyte Sed RateComments:Will hold Humira and MTX as of today.Please call a day after you saw Dr Elaine for follow up and we will restart on both medications if there is no complication of the surgery.Follow up : week of November Please get labs kgtwaZ04.11 Unilateral primary osteoarthritis, right kneeComments:Please try to do the exercises as much as possible.Z79.899 [facility] [place] [facility] (current) drug therapyComments:Will hold Humira and MTX for surgery.If no complication, will restart on them 2 weeks after.As we discussed, you should not eat any green vegetables/salads and no grapefruit as long as you are taking coumadin
--- OUTSIDE RECORDS SUMMARY | 2017-08-24 08:45 | XMS REPORT ---
:1945 External Reference #:[id number] Author Organization [email or web address] Address [address] [address] Phone [phone] Care Team Providers Name Role Phone Laurie Paz MD Primary Care Physician Unavailable Payers Type Date Identification Numbers Payment Provider Subscriber Medicare Primary Effective: Policy Number: Medicare Yen Juarez 2012 [id number] PayID: [id number] [address] [place] [address] [facility] Part B Effective: Policy Number: [facility] Yen Mann 2012 [id number] Healthcare Larry PayID: [id number] [address] [place] [address] Problems Date Description Provider Status Onset: 05/19/2012 Rheumatoid arthritis Todd Tong M.D. Active Onset: 05/19/2012 Medications Halfway (Current) Use Todd Tong M.D. Active Encounter [...] M05.79 Zsofia 017 mouth every John, week TALENT ACQUISITION MANAGER Z79.899 Humira Pen 10/01/2010 Active PNKT 40mg/0.8ML 6units inject sub -q M05.79 Zsofia inj 40mg once QUINTEN LopezP every other week Z79.899 Folic Acid 10/01/2010 Active Tablets 1mg 90tabs Take One Z79.899 Zsofia Tablet By John, Mouth Once TALENT ACQUISITION MANAGER Daily Calcium 600 + D Active Tablets 600-40 1 po bid Unknown 0mg-Un it Multivitamins Active Capsules 30caps 1 capsule Unknown mariaelena;y Areds Active Unknown Biotin Active 5000mg Unknown Advil Active Tablets 200mg as needed Unknown Magnesium Active Tablets 400mg 1 by mouth Unknown every day Methotrexate 03/11/2017 - Hx Tablets 2.5mg 84tabs Take 7 M05.79 Zsofia 06/14/2017 Tablets By John Mouth TALENT ACQUISITION MANAGER Every Week Z79.899 Methotrexate 12/07/2016 - Hx [...] Zsofia 04/05/2014 tablet once John, a month TALENT ACQUISITION MANAGER Hydroxychloroquine 11/14/2012 - Hx Tablets 200mg 180tabs 1 po bid 714 Zsofia Sulfate 01/03/2013 .0 FILI Lopez Voltaren 11/14/2012 - Hx Gel 1% 1tubes apply to Zsofia 02/14/2013 affected John, area bid, TALENT ACQUISITION MANAGER prn Methotrexate 10/01/2010 - Hx Tablets 2.5mg [...] MD Timo Depomedrol 80MG 05/09/ Administered Injection Zaneb 2014 MD Timo Immunizations CPT Code Status Date Vaccine Reaction Lot # [id number] Given 06/14/2017 Influenza Virus Vaccine, [id number] Quadrivalent, Split, Preservative Free 03968 Given 03/11/2017 Pneumonia Vaccine no immedite reaction [id number] noted ... [place] [address] Given 04/30/2016 Influenza Virus Vaccine, [id number] Quadrivalent, Split, Preservative Free 89208 Given 06/05/2014 Pneumococcal Conjugate [id number] Vaccine 13 Valent For Intramuscular Use 11206 Given 06/05/2014 Flu Vaccine Split Virus [id number] Preservative Free For Indiv 3Yr Older 95454 Given 05/18/2013 Influenza Virus 3Yrs & [id number] Over 15964 Given 05/18/2013 Flu Vaccine Split Virus Preservative Free For Indiv 3Yr Older [id number] Given 05/19/2012 Fluzone Vaccine [id number] 60258 Given 05/19/2011 Influenza Virus 3Yrs & [id number] Over Vital Signs Date Vital Result Comment 08/11/2017 Height 66 inches 5'6" Weight 220.00 [...] Test Date Test Result H/L Range Note Comp Metabolic Panel 05/26/2017 Sodium 140 mmol/L [...] Egfr Non- 61.7 >60 Egfr 79.4 >60 1 Laboratory test finding 05/26/2017 C Reactive Protein < 1.00 mg/L &lt ; 5.00 2 CBC Auto Diff 05/26/2017 White Blood Count [...] 05/26/2017 Erythrocyte Sed Rate 16 mm/Hr 0-40 3 Lipid Profile (Trig/Chol/HDL) 03/31/2017 Triglycerides 71 mg/dL 4 Cholesterol 194 mg/dL 5 HDL Cholesterol 52.8 mg/dL 6 LDL Cholesterol 127 mg/dL 7 Laboratory test finding 03/31/2017 TSH (Thyroid Stim [...] Egfr Non- 55.3 >60 Egfr 71.1 >60 8 Laboratory test finding 03/31/2017 C Reactive Protein < 1.00 mg/L &lt ; 5.00 9 Erythrocyte Sed Rate 23 mm/Hr 0-40 CBC [...] 02/20/2017 Erythrocyte Sed Rate 25 mm/Hr 0-40 10 Comp Metabolic Panel 02/20/2017 Sodium 138 mmol/L [...] Egfr Non- 57.3 >60 Egfr 73.7 >60 11 Laboratory test finding 02/20/2017 C Reactive Protein < 1.00 mg/L &lt ; 5.00 12 CBC Auto Diff 12/14/2016 White Blood Count [...] Egfr Non- 54.0 >60 Egfr 69.5 >60 13 Laboratory test finding 12/14/2016 Erythrocyte Sed Rate 26 mm/Hr 0-40 14 C Reactive Protein 1.07 mg/L < 5.00 15 Laboratory test finding 09/22/2016 Creatine Kinase(CK) 95 [...] Egfr 69.5 >60 16 Laboratory test finding 09/22/2016 Erythrocyte Sed Rate 17 mm/Hr 0-40 17 C Reactive Protein < 1.00 mg/L < 5.00 18 CMP Panel 07/30/2016 Sodium 138 mmol/L 133-145 [...] Egfr Non- 59.4 >60 Egfr 76.4 >60 19 Laboratory test finding 07/30/2016 C Reactive Protein 1.04 mg/L < 5.00 20 CBC W/Auto Diff 07/30/2016 White Blood Count [...] 07/30/2016 Erythrocyte Sed Rate 23 mm/Hr 0-40 21 Comp Metabolic Panel 04/23/2016 Sodium 137 mmol/L [...] Egfr Non- 65.2 >60 Egfr 83.9 >60 22 Laboratory test finding 04/23/2016 C Reactive Protein 1.47 mg/L < 5.00 23 CBC Auto Diff 04/23/2016 White Blood Count [...] Egfr Non- 54.8 >60 Egfr 70.5 >60 24 Laboratory test finding 01/25/2016 C Reactive Protein 1.69 mg/L < 5.00 25 CBC Auto Diff 01/25/2016 White Blood Count [...] 01/25/2016 Erythrocyte Sed Rate 21 mm/Hr 0-40 26 Laboratory test finding 10/23/2015 Free T4 (Free Thyroxine) 0.71 ng/dL 0.61-1.12 27 TSH (Thyroid Stim Horm) 2.21 ?IU/mL 0.34-5.60 28 Vitamin D Total 25(Oh) 33.4 ng/mL 30-50 29 CBC Auto Diff 10/15/2015 White Blood Count [...] Protein < 1.00 mg/L &lt ; 5.00 30 Erythrocyte Sed Rate 20 mm/Hr 0-40 31 Comp Metabolic Panel 10/15/2015 Sodium 138 mmol/L [...] Egfr Non- 61.9 >60 Egfr 79.6 >60 32 CBC Auto Diff 07/13/2015 White Blood Count [...] Egfr Non- 58.3 >60 Egfr 75.0 >60 33 Laboratory test finding 07/13/2015 C Reactive Protein 8.94 mg/L High < 5.00 34 Erythrocyte Sed Rate 37 mm/Hr 0-40 35 Comp Metabolic Panel 03/09/2015 Sodium 137 mmol/L [...] Egfr Non- 57.6 >60 Egfr 74.1 >60 36 Laboratory test finding 03/09/2015 Erythrocyte Sed Rate [...] C Reactive Protein 1.02 mg/L < 5.00 37 Comp Metabolic Panel 12/12/2014 Sodium 139 mmol/L [...] Egfr Non- 57.6 >60 Egfr 74.1 >60 38 Laboratory test finding 12/12/2014 C Reactive Protein 1.84 mg/L < 5.00 39 CBC Auto Diff 12/12/2014 White Blood Count [...] 12/12/2014 Erythrocyte Sed Rate 27 mm/Hr 0-40 Laboratory test finding 09/12/2014 C Reactive Protein 1.87 mg/L < 5.00 40 CBC Auto Diff 09/12/2014 White Blood Count [...] 0-2 Nucleated Red Blood Cells % 0.1 Comp Metabolic Panel 09/12/2014 Sodium 137 mmol/L [...] Egfr Non- 55.0 >60 Egfr 70.7 >60 41 Laboratory test finding 09/12/2014 Erythrocyte Sed Rate 26 mm/Hr 0-40 Comp Metabolic Panel 05/09/2014 Sodium 139 mmol/L [...] Egfr Non- 57.8 >60 Egfr 74.3 >60 42 Laboratory test finding 05/09/2014 Erythrocyte Sed Rate [...] C Reactive Protein 1.45 mg/L < 5.00 43 Laboratory test finding 01/15/2014 Erythrocyte Sed Rate 22 mm/Hr 0-40 Comp Metabolic Panel 01/15/2014 Sodium 137 mmol/L [...] Egfr Non- 61.5 >60 Egfr 79.1 >60 44 CBC Auto Diff 01/15/2014 White Blood Count [...] Cells % 0 Laboratory test finding 01/15/2014 C Reactive Protein 1.10 mg/L < 5.00 45 Vitamin D, 25 Hydroxy 01/15/2014 25-Hydroxy Vitamin D2 <4.0 ng/mL 25-Hydroxy Vitamin D3 34 ng/mL 25-Hydroxy Vitamin D Total 34 ng/mL 46 Laboratory test finding 11/23/2013 C Reactive Protein < 1.00 mg/L &lt ; 5.00 47 CBC Auto Diff 11/23/2013 White Blood Count [...] Rate 27 mm/Hr 0-40 Comp Metabolic Panel 11/23/2013 Sodium 140 mmol/L [...] Egfr Non- 62.3 >60 Egfr 80.1 >60 48 Comp Metabolic Panel 09/01/2013 Sodium 138 mmol/L [...] Egfr Non- 62.3 >60 Egfr 80.1 >60 49 Laboratory test finding 09/01/2013 Erythrocyte Sed Rate [...] Egfr Non- 62.5 >60 Egfr 80.3 >60 50 Comp Metabolic Panel 02/02/2013 Sodium 141 mmol/L [...] Egfr Non- 62.5 >60 Egfr 80.3 >60 51 CBC Auto Diff 02/02/2013 White Blood Count [...] 2 % 0-6 RBC Morphology Normal Normal Laboratory test finding 11/07/2012 Erythrocyte Sed Rate 28 mm/Hr 0-40 52 Pathologist Review (SEE NOTE) 53 Liver Function Panel 11/07/2012 Total Protein 6.4 g/dL 6.2-8.1 Albumin 3.6 g/dL 3.2-5.2 Globulin 2.8 g/dL 2-4 Albumin/Globulin Ratio 1.3 1-3 Total Bilirubin 0.6 mg/dL 0.4-1.5 Direct Bilirubin 0 mg/dL Low 0.1-0.5 Indirect Bilirubin (SEE NOTE) mg/dL 0.3-1.0 54 Alkaline Phosphatase 70 U/L 30-110 Alt 28 U/L 14-54 Ast 23 U/L 12-42 Basic Metabolic Panel 11/07/2012 Sodium 139 mmol/L 133-145 Potassium 4.5 mmol/L 3.5-5.0 Chloride 102 mmol/L 101-111 Co2 Carbon Dioxide 31.0 mmol/L 22-32 Anion Gap 6.0 mmol/L 2-11 Glucose 116 mg/dL High 70-100 Blood Urea Nitrogen 20 mg/dL 6-24 Creatinine 1.00 mg/dL 0.50-1.40 BUN/Creatinine Ratio 20.0 8-20 Calcium 9.6 mg/dL 8.1-9.9 Egfr Non- 55.3 >60 Egfr 71.1 >60 55 Laboratory test 11/07/2012 C Reactive Protein < 0.5 mg/dL Less than 0.5 finding Basic Metabolic Panel 07/18/2012 Sodium 137 mmol/L 133-145 Potassium 4.0 mmol/L 3.5-5.0 Chloride 102 mmol/L 101-111 Co2 Carbon Dioxide 31.0 mmol/L 22-32 Anion Gap 4.0 mmol/L 2-11 Glucose 90 mg/dL 70-100 Blood Urea Nitrogen 18 mg/dL 6-24 Creatinine 1.00 mg/dL 0.50-1.40 BUN/Creatinine Ratio 18.0 8-20 Calcium 9.5 mg/dL 8.1-9.9 Egfr Non- 55.5 >60 Egfr 71.3 >60 56 Laboratory test 07/18/2012 C Reactive Protein < [...] Blood Cells % 0.1 Laboratory test finding 07/18/2012 Erythrocyte Sed Rate 21 mm/Hr 0-40 Liver Function Panel 07/18/2012 Total Protein 6.4 g/dL 6.2-8.1 Albumin 3.8 g/dL 3.2-5.2 Globulin 2.6 g/dL 2-4 Albumin/Globulin Ratio 1.5 1-3 Total Bilirubin 0.5 mg/dL 0.4-1.5 Direct Bilirubin 0 mg/dL Low 0.1-0.5 Alkaline Phosphatase 64 U/L 30-110 Alt 33 U/L 14-54 Ast 27 U/L 12-42 Basic Metabolic Panel 04/26/2012 Sodium 138 mmol/L 135-145 Potassium 4.8 mmol/L 3.5-5.0 Chloride 102 mmol/L 101-111 Co2 (Carbon Dioxide) 30.0 mmol/L 22-32 Anion Gap 6.0 mmol/L 2-11 57 Glucose 92 mg/dL 70-100 BUN 19 mg/dL 6-24 Creatinine 1.0 mg/dL 0.50-1.40 One Over Creatinine 1.00 BUN/Creatinine Ratio 19.0 8-20 Calcium 9.5 mg/dL 8.1-9.9 eGFR Non- 55.5 > 60 eGFR 71.3 > 60 58 Liver Function Panel 04/26/2012 Total Protein 6.8 GM/DL 6.2-8.1 Albumin 4.0 GM/DL 3.2-5.2 Globulin 2.8 GM/DL 2-4 Albumin/Globulin Ratio 1.4 1-3 Bilirubin Total 0.7 mg/dL 0.4-1.5 59 Bilirubin Direct 0.1 mg/dL 0.1-0.5 Indirect Bilirubin 0.6 mg/dL 0.3-1.0 60 Alkaline Phosphatase 69 U/L 30-110 Alt (SGPT) [...] Monocyte 3 % 0-13 RBC Morphology NORMAL Laboratory test 04/26/2012 C Reactive Protein < 0.5 mg/dL Less Than 0.5 finding Erythrocyte Sed Rate 25 MM/HR 0-40 Basic Metabolic Panel 02/04/2012 Sodium 137 mmol/L 135-145 Potassium 4.4 mmol/L 3.5-5.0 Chloride 104 mmol/L 101-111 Co2 (Carbon Dioxide) 30.0 mmol/L 22-32 Anion Gap 3.0 mmol/L 2-11 61 Glucose 112 mg/dL High 70-100 BUN 16 mg/dL 6-24 Creatinine 1.0 mg/dL 0.50-1.40 One Over Creatinine 1.00 BUN/Creatinine Ratio 16.0 8-20 Calcium 9.2 mg/dL 8.1-9.9 eGFR Non- 55.5 > 60 eGFR 71.3 > 60 62 Liver Function Panel 02/04/2012 Total Protein 6.5 GM/DL 6.2-8.1 Albumin 3.6 GM/DL 3.2-5.2 Globulin 2.9 GM/DL 2-4 Albumin/Globulin Ratio 1.2 1-3 Bilirubin Total 0.5 mg/dL 0.4-1.5 63 Bilirubin Direct 0.1 mg/dL 0.1-0.5 Indirect Bilirubin 0.4 mg/dL 0.3-1.0 64 Alkaline Phosphatase 61 U/L 30-110 Alt (SGPT) 33 U/L 14-54 Ast (Sgot) 24 U/L 12-42 Laboratory test 02/04/2012 C Reactive Protein < 0.5 mg/dL Less Than 0.5 finding CBC With Manual Diff 02/04/2012 White Blood [...] % 0-2 RBC Morphology NORMAL Laboratory test 02/04/2012 Erythrocyte Sed Rate 28 MM/HR 0-40 finding Laboratory test 06/22/2007 C Reactive Protein < 0.5 mg/dL Less Than 0.5 finding Basic Metabolic 06/22/2007 One Over Creatinine 0.90 Panel Anion Gap 5.0 mmol/L 2-11 65 BUN 21 mg/dL 6-24 Calcium 9.0 mg/dL [...] Distribution WDTH 15 % 10.5-15 Laboratory test finding 06/22/2007 Erythrocyte Sed Rate 23 MM/HR 0-30 CBC W/ Electronic Diff 05/31/2007 White Blood [...] Redcell Distribution WDTH 17 % High 10.5-15 Laboratory test 05/31/2007 Erythrocyte Sed Rate 24 MM/HR 0-30 finding Laboratory test 05/31/2007 C Reactive Protein < 0.5 mg/dL Less Than 0.5 finding Basic Metabolic 05/31/2007 One Over Creatinine 0.90 Panel Anion Gap 3.0 mmol/L 2-11 66 BUN 22 mg/dL 6-24 Calcium 9.2 mg/dL [...] mg/dL 0.4-1.5 Total Protein 6.7 GM/DL 6.2-8.1 1 Because ethnic data is not always readily [...] 15-29 5 Kidney failure <15 (or dialysis) 2 Acute inflammation: >10.00 3 Standing Order Entered 12/15/16 Expires 06/09/17 Non-Fasting 4 Desirable <150 Borderline high 150-199 High 200-499 Very High >500 5 Desirable <200 Borderline high 200-239 High >239 6 Low <40 Desirable: 40-60 High: >60 7 Desirable: <100 mg/dL Near Optimal: 100-129 mg/dL Borderline High: 130-159 mg/dL High: 160-189 mg/dL Very High: >189 mg/dL 8 Because ethnic data is not always readily [...] 15-29 5 Kidney failure <15 (or dialysis) 9 Acute inflammation: >10.00 10 Standing Order Entered 12/15/16 Expires 06/09/17 Non-Fasting 11 Because ethnic data is not always [...] (or dialysis) 12 Acute inflammation: >10.00 13 Because ethnic data is not always readily [...] 15-29 5 Kidney failure <15 (or dialysis) 14 standing order 15 Acute inflammation: >10.00 16 Because ethnic [...] 5 Kidney failure <15 (or dialysis) 17 STANDING ORDER Q 4-6 WEEKS ENTERED 04/28/2016 EXPIRES 10/21/2016 18 Acute inflammation: >10.00 19 Because ethnic [...] 5 Kidney failure <15 (or dialysis) 20 Acute inflammation: >10.00 21 STANDING ORDER Q 4-6 WEEKS ENTERED 04/28/2016 EXPIRES 10/21/2016 22 Because ethnic data is not always [...] (or dialysis) 23 Acute inflammation: >10.00 24 Because ethnic data is not always readily [...] 15-29 5 Kidney failure <15 (or dialysis) 25 Acute inflammation: >10.00 26 Standing Order Valid 10/15/15-04/16/16 27 1x order 28 1x order 29 1x order 30 Acute inflammation: >10.00 31 Standing orders q4-6 weeks or as directed. 32 Because ethnic data is not always readily [...] 15-29 5 Kidney failure <15 (or dialysis) 33 Because ethnic data is not always readily [...] 15-29 5 Kidney failure <15 (or dialysis) 34 Acute inflammation: >10.00 35 Standing orders q4-6 weeks or as directed. Copy Result to: SUHAIL ROUSE ([id number]) 36 Because ethnic data is not always [...] (or dialysis) 37 Acute inflammation: >10.00 38 Because ethnic data is not always readily [...] 15-29 5 Kidney failure <15 (or dialysis) 39 Acute inflammation: >10.00 40 Acute inflammation: >10.00 41 Because ethnic [...] 5 Kidney failure <15 (or dialysis) 42 Because ethnic data is not always readily [...] 15-29 5 Kidney failure <15 (or dialysis) 43 Acute inflammation: >10.00 44 Because ethnic data is not always readily [...] 15-29 5 Kidney failure <15 (or dialysis) 45 Acute inflammation: >10.00 46 -- REFERENCE VALUE -- 25-HYDROXY D TOTAL (D2+D3) Optimum levels in the healthy population are 20-50, patients with bone disease may benefit from higher levels within this range. Test Performed by: [facility] [place] [address] Wellness Ambassador: Rashard Avendaño III, M.D. 47 Acute inflammation: >10.00 48 Because ethnic data is not always readily [...] 15-29 5 Kidney failure <15 (or dialysis) 49 Because ethnic data is not always readily [...] 15-29 5 Kidney failure <15 (or dialysis) 50 Because ethnic data is not always [...] 5 Kidney failure <15 (or dialysis) 51 Because ethnic data is not always readily [...] 15-29 5 Kidney failure <15 (or dialysis) 52 @11/07/12 1703: Path Review added. RFLXG=PATH. 53 CBC and smear reviewed. Inverted PMN/lymph ratio noted. No blasts seen. REVIEWED BY KOSTAS PATEL MD 54 UNABLE TO CALCULATE IND.BILI D.BILI IS <0.1 55 Because ethnic data is not always [...] 5 Kidney failure <15 (or dialysis) 56 Because ethnic data is not always readily [...] 15-29 5 Kidney failure <15 (or dialysis) 57 Anion gap measurement may be of limited value in the presence of any alkalosis, especially in a combined acid base disorder. . 58 Because ethnic data is not always readily [...] 15-29 5 Kidney failure <15 (or dialysis) 59 A metabolite of Naproxen, O-desmethylnaproxen, has been shown to interfere with the Jendrassik-Melisa method for measuring total bilirubin. Samples from patients who have taken Naproxen have shown spurious elevation in total bilirubin levels. 60 Please note updated reference range, effective 02/27/10 61 Anion gap measurement may be of limited value in the presence of any alkalosis, especially in a combined acid base disorder. . 62 Because ethnic data is not always readily [...] 15-29 5 Kidney failure <15 (or dialysis) 63 A metabolite of Naproxen, O-desmethylnaproxen, has been shown to interfere with the Jendrassik-Melisa method for measuring total bilirubin. Samples from patients who have taken Naproxen have shown spurious elevation in total bilirubin levels. 64 Please note updated reference range, effective 02/27/10 65 Anion gap measurement may be of limited value in the presence of any alkalosis, especially in a combined acid base disorder. . 66 Anion gap measurement may be of limited value in the presence of any alkalosis, especially in a combined acid base disorder. . Procedures Date CPT Code Description Status 04/13/201741208 Inject/Drain Joint/Bursa Major Completed 04/13/201775480 Inject/Drain Joint/Bursa Major Completed 12/17/201606519 Inject/Drain Joint/Bursa Major Completed 12/14/2016 Bone Mineral Density Test Completed 05/09/201554695 Inject/Drain Joint/Bursa Major Completed 03/05/2014 Bone Mineral Density Test Completed Encounters Type Date Location Provider CPT E/M Dx Office Visit 07/12/2017 [facility] Sherie Elaine M.D. 86110 M25.561 9:00a Of [facility] M25.562 M25.461 M25.462 M17.0 Office Visit 06/14/2017 9:00a [facility] Yvonne Lopez [address] M05.79 [facility] Z[facility].899 M17.0 Z23 Office Visit 03/11/2017 8:00a [facility] Yvonne Lopez 47158 M05.79 [facility] Z79.899 Z23 Office Visit 12/17/2016 8:30a [facility] [address] M17.11 [facility] Office Visit 12/07/2016 8:30a [facility] Services FILI Hutton 07092 M05.79 [facility] Z79.899 M85.89 Office Visit 09/07/2016 11:00a [facility] Of Yvonne Lopez, 54738 M05.79 [facility] TALENT ACQUISITION MANAGER M62.81 Z79.899 Office Visit 04/30/2016 9:00a [facility] Of Yvonne Lopez, 41680 M05.79 [facility] TALENT ACQUISITION MANAGER M79.672 Z79.899 R06.02 Z23 Office Visit 01/27/2016 9:00a [facility] Yvonne Lopez, 52328 M05.79 [facility] TALENT ACQUISITION MANAGER M25.569 Z79.899 Office Visit 10/23/2015 10:30a [facility] Services QUINTEN HuttonP 01633 M05.79 Of [facility] R53.83 Z79.899 E66.9 Office Visit 07/24/2015 9:30a Rheumatology Services QUINTEN HuttonP 96341 M05.79 Of Reimbursement Liaison R79.82 M17.12 R06.02 Z79.899 M17.0 Office Visit 05/20/2015 3:00p [facility] [address] M25.462 C.[facility]A. Office Visit 05/09/2015 9:30a [facility] [address] M17.12 C[facility] Office Visit 04/24/2015 10:00a [facility] Yvonne Lopez 27264 714.0 Of [facility] TALENT ACQUISITION MANAGER 721.3 V58.69 729.1 Office Visit 12/17/2014 10:00a [facility] Of Yvonne Lopez TALENT ACQUISITION MANAGER 58652 714.0 Reimbursement Liaison V58.69 Office Visit 09/19/2014 9:30a [facility] Of Yvonne Lopez TALENT ACQUISITION MANAGER 28372 714.0 [facility] 721.3 V58.69 Office Visit 06/05/2014 10:00a [facility] Of Yvonne Lopez TALENT ACQUISITION MANAGER 06599 714.0 [facility] 721.3 733.90 V58.69 V03.82 V04.81 V06.6 Office Visit 02/26/2014 9:00a [facility] Yvonne Lopez, [facility] [address] 714.0 Reimbursement Liaison 721.3 733.90 V58.69 Office Visit 11/27/2013 9:30a [facility] Of QUINTEN HuttonP 27913 714.0 Reimbursement Liaison 721.3 995.3 V58.69 733.90 Office Visit 09/04/2013 9:00a [facility] Of FILI Hutton 08021 714.0 Reimbursement Liaison 721.3 V58.69 780.79 Office Visit 05/18/2013 9:40a Rheumatology Services QUINTEN HuttonP 64675 V04.81 Of Reimbursement Liaison 714.0 721.3 V58.69 V04.81 Office Visit 02/14/2013 10:00a [facility] Of QUINTEN HuttonP 33985 714.0 Reimbursement Liaison V58.69 Office Visit 11/14/2012 11:00a [facility] Of QUINTEN HuttonP 89276 714.0 Reimbursement Liaison V58.69 Office Visit 08/15/2012 1:40p [facility] Services Todd Tong M.D. 24083 714.0 Of Reimbursement Liaison V58.69 Office Visit 05/19/2012 10:00a [facility] Services Todd Tong 25550 V04.81 Of Justino Chang 714.0 V58.69 Office Visit 02/25/2012 3:40p [facility] Services Todd Tong M.D. 79396 714.0 Of Reimbursement Liaison V58.69 Office Visit 11/24/2011 2:40p [facility] Services Todd Tong M.D. 36934 714.0 Of Justino V58.69 721.3 Office Visit 08/25/2011 2:40p [facility] Services Todd Tong M.D. 21148 714.0 Of Reimbursement Liaison V58.69 Office Visit 05/19/2011 2:40p [facility] Services Todd Tong 02679 V04.81 Of Justino Chang 714.0 V58.69 Office Visit 04/29/2011 11:30a [facility] Of Jasiel Singh, 93972 715.96 C.M.ALudmila Chang 836.0 Office Visit 02/23/2011 2:40p [facility] Services Todd Tong M.D. 17518 714.0 Of [facility] V58.69 Office Visit 12/16/2010 2:40p [facility] Services Todd Tong M.D. 55746 714.0 Of [facility] V58.69 Office Visit 10/01/2010 2:40p [facility] Services Todd Tong M.D. 78463 714.0 Of [facility] V58.69 Plan of Care Future Appointment(s):08/24/2017 11:00 am - TIFFANIE Morales at [facility] Of ..A.08/24/2017 11:00 am - Luis Vincent PA-C at [facility] ..A.08/24/2017 11:00 am - TIFFANIE Rocha at [facility] Of ..A.08/12/2017 9:30 am - FILI Hutton at [facility] Of [facility]08/24/2017 11:00 am - Sherie Elaine M.D. at [facility] Of .M.A09/06/2017 9:45 am - Sherie Elaine M.D. at [facility] Of [facility]09/20/2017 9:30 am - FILI Hutton at [facility]08/11/2017 - Sherie Elaien M.D.M25.561 Pain in right kneeFollow up:Follow up: 2 weeks after nsozmiuO28.461 Effusion, right kneeM17.0 Bilateral primary osteoarthritis of knee
--- OUTSIDE RECORDS SUMMARY | 2017-08-24 08:46 | XMS REPORT ---
:1945 External Reference #:[id number] Author Organization [facility] Address [address] [place] [address] Phone [phone] Care Team Providers Name Role Phone Laurie Paz M.D. Primary Care Physician Unavailable Payers Type Date Identification Numbers Payment Provider Subscriber Medicare Primary Effective: Policy Number: Medicare [employer] Tommy Angulo 2012 [id number] PayID: [id number] [address] [place] [address] Medigap Part B Effective: Policy Number: [facility] Tommy Mann 2012 [id number] Care Options Larry PayID: [id number] [address] [place] [address] Problems Date Description Provider Status Onset: 06/12/2011 Rheumatoid arthritis Jose Goel M.D. Active Onset: 05/10/2013 Thoracic and lumbosacral neuritis Jose Goel M.D. Active Onset: 05/08/2015 Osteoporosis Laurie Paz M.D. Active Onset: 01/14/2012 Verruca plantaris Jose Goel M.D. Resolved Resolved: 03/29/2017 Onset: 01/14/2012 Arthralgia of the pelvic region and Jose Goel M.D. Resolved thigh Resolved: 03/29/2017 Onset: 02/16/2012 Pain in limb Jose Goel M.D. Resolved Resolved: 03/29/2017 Onset: 02/16/2012 Disorder of skin AND/OR Jose Goel M.D. Resolved subcutaneous tissue Resolved: 03/29/2017 Family History Date Family Member(s) Problem(s) Comments General no colon or breast cancer history Father [place] age 70's First Daughter Hypothyroidism Social History Type Date Description Comments Marital Status Patient is Living Situation Patient lives alone Cigarette Use Former Cigarette Smoker age 15 to age 61 - 3/4 pack per day ETOH Use Rare Smoking Patient is a former smoker Allergies, Adverse Reactions, Alerts Date Description Reaction Status Severity Comments 02/11/2010 Penicillin active rash 02/11/2010 Empirin W/Codeine active funny feelings 09/17/2010 Fosomax active Mild crampy stomach pains Medications Medication Date Status Form Strength Qnty SIG Indications Ordering Provider Humira Active Kit 40mg/0.8M injection Unknown /0000 L every 3 weeks Methotrexate Active Tablets 2.5mg 40tab 6 tablets po Unknown /0000 s once a week Prilosec OTC Active Tablets 20mg 30tab prn Unknown / DR moreno Calcium/Vitamin Active 1 po qd Unknown Folic Acid Active Tablets 750mg 1 by mouth Unknown /0000 every day Preservision Active Capsules Areds 2 1 by mouth Unknown Areds 2 0000 every day Biotin Maximum Active Tablets [id number] 1 by mouth Unknown Strength /0000 every in the morning Magnesium Active Tablets 250mg 1 by mouth Unknown /0000 every day Ibuprofen 05/01 Hx Tablets 600mg 30tab 1 tab by 719.46 s mouth every 6 Cornelius, - hours as M.D. 03/22 needed pain. take with food Medrol /10 Hx Tablets 4mg 1tabs dose-pack as 724.4 instructed Nathalia Sidhu M.D. 05/01 Physical Therapy 05/18 Hx treatment and 724.4 evaluation of Danielle Goel, - low back pain M.D. 05/01 with sciatica Hydrocodone/Acet 10 Hx Tablets 5-325mg 40tab 1 po q 6 h Carney aminophen s prn Nathalia Sidhu M.D. 05/01 Cyclobenzaprine 05/10 Hx Tablets 5mg 20tab one to two 724.4 Carney HCL s tablet qhs Danielle Goel, - prn M.D. 05/27 Medrol 05/10 Hx Tablets 4mg 1tabs dose-pack as 724.4 instructed Danielle Goel - M.D. 05/18 Mycolog-II 02/15 Hx Cream 30G apply to 709.9 affected area Danielle Goel, - bid for up to M.D. 05/18 two weeks Miconazole 05/25 Hx Cream 2% 30g apply bid 112.9 Nathalia Sidhu M.D. 05/18 Vicodin 04/20 Hx Tablets 5-500mg 30tab 1 po qhs prn s pain Danielle Goel - M.D. 05/25 Calcium/Vitamin 10/06 Hx Tablets 600-400mg 180ta take two -Unit bs tablets by Danielle Goel, - mouth every M.D. Boniva 10/06 Hx Tablets 150mg 3tabs Take One Tablet By Danielle Goel, - Mouth M.D. 05/01 Monthly, With Water 1 Hour Before First Food/Drink In Morning *DO Not Eat For 60 Min After* Fosamax 06/10 Hx Tablets 70mg 12tab 1 po q week 733.00 s for Danielle Goel, - osteoporosis M.D. 09/17 Calcium 600-D 03/17 Hx Tablets 600-400mg 180ta two po daily 627.9 -Unit bs Danielle Goel - M.D. 09/17 Folic Acid 00/00 Hx Tablets 1mg 100ta 1 po qd Unknown /0000 bs - 03/29 Nabumetone Hx Tablets 750mg 30tab 1 po qd Unknown /0000 s - 05/01 Multivitamins 00/00 Hx Tablets 100ta 1 po qd Unknown /0000 bs - 09/17 Vitamin D 00 Hx Capsules 400Unit 30cap 1 po qd Unknown /0000 s - 05/01 Immunizations CPT Code Status Date Vaccine Lot # [id number] Given 05/08/2015 High-Dose, Influenza Virus Vacccine-fluzone 65 [id number] and older 96493 Given 06/10/2010 DO Not Use Split Influenza Virus Vaccine [id number] Given 03/17/2010 Tetanus And Diptheria Adult Preservative Free [id number] >7Yrs Vital Signs Date Vital Result Comment 08/05/2017 BP Systolic 142 mmHg BP Diastolic 80 mmHg Heart Rate 76 /min Body Temperature 98.6 F Respiratory Rate 16 /min Height 63 inches 5'3" Weight 220.00 lb BMI (Body Mass Index) 39.0 kg/m2 03/29/2017 BP Systolic 124 mmHg BP Diastolic 80 mmHg Heart Rate 80 /min Body Temperature 98.1 F Respiratory Rate 16 /min Height 62.75 inches 5'2.75" Weight 216.12 lb BMI (Body Mass Index) 38.6 kg/m2 03/23/2016 BP Systolic 124 mmHg BP Diastolic 84 mmHg Heart Rate 84 /min Body Temperature 97.8 F Height 63 inches 5'3" Weight 215.12 lb BMI (Body Mass Index) 38.1 kg/m2 05/08/2015 BP Systolic 150 mmHg BP Diastolic 80 mmHg Heart Rate 78 /min Body Temperature 97.6 F Respiratory Rate 16 /min Height 63 inches 5'3" Weight 206.00 lb BMI (Body Mass Index) 36.5 kg/m2 05/01/2015 BP Systolic 160 mmHg BP Diastolic 90 mmHg Heart Rate 72 /min Body Temperature 97.4 F Respiratory Rate 16 /min Height 63 inches 5'3" Weight 207.00 lb BMI (Body Mass Index) 36.7 kg/m2 05/27/2013 BP Systolic 130 mmHg BP Diastolic 90 mmHg Heart Rate 90 /min Body Temperature 97.9 F Respiratory Rate 16 /min Height 64.75 inches 5'4.75" Weight 208.00 lb BMI (Body Mass Index) 34.9 kg/m2 05/18/2013 BP Systolic 120 mmHg BP Diastolic 80 mmHg Heart Rate 84 /min Body Temperature 97.8 F Respiratory Rate 16 /min Height 64.75 inches 5'4.75" Weight 212.00 lb BMI (Body Mass Index) 35.5 kg/m2 05/10/2013 BP Systolic 144 mmHg BP Diastolic 88 mmHg Heart Rate 84 /min Body Temperature 97.9 F Respiratory Rate 18 /min Height 64.75 inches 5'4.75" Weight 212.00 lb BMI (Body Mass Index) 35.5 kg/m2 02/16/2012 BP Systolic 140 mmHg BP Diastolic 84 mmHg Heart Rate 76 /min Body Temperature 98.1 F Height 64.75 inches 5'4.75" Weight 219.00 lb BMI (Body Mass Index) 36.7 kg/m2 01/14/2012 BP Systolic 122 mmHg BP Diastolic 72 mmHg Heart Rate 84 /min Body Temperature 97.7 F Height 64.75 inches 5'4.75" Weight 219.00 lb BMI (Body Mass Index) 36.7 kg/m2 05/25/2011 BP Systolic 128 mmHg BP Diastolic 98 mmHg Heart Rate 84 /min Body Temperature 96.6 F Height 64.75 inches 5'4.75" Weight 214.00 lb BMI (Body Mass Index) 35.9 kg/m2 04/20/2011 BP Systolic 114 mmHg BP Diastolic 84 mmHg Heart Rate 78 /min Body Temperature 97.8 F Height 64.75 inches 5'4.75" Weight 217.00 lb BMI (Body Mass Index) 36.4 kg/m2 03/17/2011 BP Systolic 124 mmHg BP Diastolic 80 mmHg Heart Rate 80 /min Body Temperature 98.0 F Respiratory Rate 16 /min Height 64.75 inches 5'4.75" Weight 216.00 lb BMI (Body Mass Index) 36.2 kg/m2 09/17/2010 BP Systolic 100 mmHg BP Diastolic 80 mmHg Heart Rate 72 /min Body Temperature 97.3 F Height 64.75 inches 5'4.75" Weight 215.00 lb BMI (Body Mass Index) 36.1 kg/m2 06/10/2010 BP Systolic 120 mmHg BP Diastolic 82 mmHg Heart Rate 96 /min Body Temperature 98.1 F Height 64.75 inches 5'4.75" Weight 210.00 lb BMI (Body Mass Index) 35.2 kg/m2 03/17/2010 BP Systolic 106 mmHg BP Diastolic 80 mmHg Heart Rate 80 /min Body Temperature 98.6 F Respiratory Rate 16 /min Height 64.75 inches 5'4.75" Weight 205.00 lb BMI (Body Mass Index) 34.4 kg/m2 02/11/2010 BP Systolic 120 mmHg BP Diastolic 86 mmHg Heart Rate 78 /min Body Temperature 98.4 F Height 65 inches 5'5" Weight 207.00 lb BMI (Body Mass Index) 34.4 kg/m2 Results Test Date Test Result H/L Range Note Lipid Profile (Trig/Chol/HDL) 03/31/2017 Triglycerides 71 mg/dL 1 Cholesterol 194 mg/dL 2 HDL Cholesterol 52.8 mg/dL 3 LDL Cholesterol 127 mg/dL 4 Laboratory test finding 03/31/2017 TSH (Thyroid Stim Horm) 2.33 mcIU/mL 0.34-5.60 Free T4 (Free Thyroxine) 0.81 ng/dL 0.61-1.12 Comp Metabolic Panel 03/31/2017 Sodium 139 mmol/L [...] Egfr Non- 55.3 >60 Egfr 71.1 >60 5 Laboratory test finding 03/31/2017 C Reactive Protein < 1.00 mg/L &lt ; 5.00 6 CBC Auto Diff 03/31/2017 White Blood Count [...] Blood Cells % 0 Laboratory test finding 03/31/2017 Erythrocyte Sed Rate 23 mm/Hr 0-40 Comp Metabolic Panel 07/13/2015 Sodium 137 mmol/L [...] Egfr Non- 58.3 >60 Egfr 75.0 >60 7 Laboratory test finding 07/13/2015 C Reactive Protein 8.94 mg/L High < 5.00 8 CBC Auto Diff 07/13/2015 White Blood Count [...] Blood Cells % 0 Laboratory test finding 07/13/2015 Erythrocyte Sed Rate 37 mm/Hr 0-40 9 Comprehensive Metabolic Prof 05/08/2015 Sodium 138 mEq/L 134-149 Potassium 4.3 mEq/L 3.6-5.5 Chloride 99 mEq/L 94-112 Carbon Dioxide 27 mEq/L 21-32 Glucose 95 mg/dL 70-105 BUN 22 mg/dL 6-26 Creatinine 0.9 mg/dL 0.6-1.4 BUN/Creat Ratio 24.4 CALC 8.0-36.0 Calcium 9.3 mg/dL 8.6-10.2 Total Protein 7.6 g/dL 6.4-8.3 Albumin 4.2 g/dL 3.8-5.5 Globulin 3.4 g/dL 2.0-4.8 A/G Ratio 1.2 CALC 0.6-2.3 Alk. Phosphatase 69 U/L 30-110 Alt (SGPT) 24 U/L 7-35 Ast (Sgot) 23 U/L 5-34 Total Bilirubin 0.4 mg/dL 0.2-1.3 GFR Non- >60 ml/min/1.73m^ >=60 GFR >60 ml/min/1.73m^ >=60 Lipid Profile 05/08/2015 Cholesterol 184 mg/dL 120-200 Triglycerides 84 mg/dL 30-200 HDL Cholesterol 62 mg/dL 30-85 LDL (Calculated) 105 CALC 0-129 VLDL Cholesterol 17 mg/dL 0-50 HDL Risk Factor 3.0 CALC 0.0-4.4 Laboratory test finding 05/08/2015 TSH 2.31 mIU/L 0.50-6.00 Complete Blood Count 05/08/2015 WBC 4.9 x10^3/UL 3.6-9.6 RBC 4.28 x10^6/UL 3.90-5.70 HGB 13.5 g/dL 12.1-17.2 HCT 40 % 36-50 MCV 93.0 fL 82.2-97.4 MCH 31.5 pg 27.6-33.3 MCHC 33.9 g/dL 33.0-35.5 RDW 14.5 % High 11.6-13.7 PLT 251 x10^3/UL 150-400 MPV 7.0 fL Low 7.4-10.4 Gran # 2.5 x10^3/UL 1.5-7.2 Lymph# 2.1 x10^3/UL 0.7-4.9 Becker# 0.3 x10^3/UL 0.1-0.9 Gran % 50.1 % 42.2-75.2 Lymph % 43.7 % 20.5-51.1 Becker% 6.2 % 1.7-9.3 Laboratory test finding 05/08/2015 Hemoglobin A1c (Fma/CMC,CX) 5.3 % 4.1- 5.7 Comp Metabolic Panel 11/23/2013 Sodium 140 mmol/L [...] Egfr Non- 62.3 >60 Egfr 80.1 >60 10 Laboratory test finding 11/23/2013 C Reactive Protein < 1.00 mg/L &lt ; 5.00 11 CBC Auto Diff 11/23/2013 White Blood Count [...] Egfr Non- 62.3 >60 Egfr 80.1 >60 12 Laboratory test 09/01/2013 C Reactive Protein < 0.5 mg/dL Less than 0.5 finding CBC Auto Diff 09/01/2013 White Blood Count [...] Blood Cells % 0 Laboratory test finding 09/01/2013 Erythrocyte Sed Rate 24 mm/Hr 0-40 TSH (Thyroid Stimulating Horm) 1.77 miu/mL 0.34-5.60 Basic Metabolic Panel 11/07/2012 Sodium 139 mmol/L 133-145 Potassium 4.5 mmol/L 3.5-5.0 Chloride 102 mmol/L 101-111 Co2 Carbon Dioxide 31.0 mmol/L 22-32 Anion Gap 6.0 mmol/L 2-11 Glucose 116 mg/dL High 70-100 Blood Urea Nitrogen 20 mg/dL 6-24 Creatinine 1.00 mg/dL 0.50-1.40 BUN/Creatinine Ratio 20.0 8-20 Calcium 9.6 mg/dL 8.1-9.9 Egfr Non- 55.3 >60 Egfr 71.1 >60 13 Liver Function Panel 11/07/2012 Total Protein 6.4 g/dL 6.2-8.1 Albumin 3.6 g/dL 3.2-5.2 Globulin 2.8 g/dL 2-4 Albumin/Globulin Ratio 1.3 1-3 Total Bilirubin 0.6 mg/dL 0.4-1.5 Direct Bilirubin 0 mg/dL Low 0.1-0.5 Indirect Bilirubin (SEE NOTE) mg/dL 0.3-1.0 14 Alkaline Phosphatase 70 U/L 30-110 Alt 28 U/L 14-54 Ast 23 U/L 12-42 Laboratory test 11/07/2012 C Reactive Protein < 0.5 mg/dL Less than 0.5 finding CBC With Manual Diff 11/07/2012 White Blood [...] Morphology Normal Normal Laboratory test finding 11/07/2012 Pathologist Review (SEE NOTE) 15 Erythrocyte Sed Rate 28 mm/Hr 0-40 16 Comprehensive Metabolic Prof 05/25/2011 Albumin 4.6 g/dL 3.8-5.5 Alk. Phos. 68 U/L 30-110 Alt (SGPT) 32 U/L 7-35 Ast (Sgot) 28 U/L 5-34 BUN 24 mg/dL 6-26 Calcium 9.9 mg/dL 8.6-10.2 Chloride 103 mEq/L 94-112 Creatinine 1.0 mg/dL 0.6-1.4 Carbon Dioxide 26 mEq/L 21-32 Glucose 104 mg/dL 70-105 Sodium 141 mEq/L 134-149 Total Bilirubin 0.4 mg/dL 0.2-1.3 Total Protein 7.1 g/dL 6.3-8.1 Potassium 5.0 mEq/L 3.6-5.5 Globulin 2.6 g/dL 2.0-4.8 A/G Ratio 1.8 Calc 0.6-2.2 BUN/Creat Ratio 24.2 Calc 8.0-36.0 Lipid Profile 05/25/2011 Cholesterol 215 mg/dL High 120-200 HDL 50 mg/dL 30-85 Triglycerides 90 mg/dL 30-200 HDL Risk Factor 4.3 CALC High 0.0-4.0 LDL (Calculated) 146 CALC High 0-129 VLDL (Calculated) 18 mg/dL 0-50 Laboratory test finding 05/25/2011 TSH 2.35 mIU/L 0.50-6.00 Free T4 0.98 ng/dL 0.75-1.54 Laboratory test finding 05/25/2011 C-Reactive Protein 1.9 mg/L 0.0-5.0 17 CBC Electronic ([facility]) 05/25/2011 WBC 3.7 3.6-9.6 RBC 4.35 3.90-5.70 Hemoglobin (Fma/CMC/CTX) 13.6 g/dL 12.1 - 17.2 Hematocrit (Fma/CMC/CTX) 40.7 % 36.1 - 50.3 Platelets 274 10^3/ul 150-400 Lymph% 38.0 20.5-51.1 Mixed% 8.9 Neutrophils % 53.1 Mean Corpuscular Vol 94 82.2-97.4 Mean Corpuscular Hemoglobin 31.3 27.6-33.3 Mean Corpuscular Hemo Concen 33.5 32.0-36.0 RDW 12.6 11.6-13.7 Mean Platelet Volume 7.4 6.5-11.0 Laboratory test finding 05/25/2011 Sed Rate (a[place] 14 MM Ua - Micro ([facility]) 06/10/2010 Appearance CLEAR Color YELLOW Glucose NEG Bilirubin NEG Ketones NEG SP Grav 1.020 Blood TRACE PH 5.5 Protein NEG Urobil 0.2 Nitrite NEG Leukocytes (Fma/CMC/[facility]) TRACE Hyaline - /Lpf Granular - /Lpf WBC (a,[facility]) 1-3 RBC 1-3 Mucus SMALL AMT /Lpf Epith OCC /Lpf Bacteria TRACE /Hpf Amorphous - /Lpf Crystals, Fluid (Fma/CMC/CTX) - Z#Comments - Surgical Pathology 04/15/2010 Surgical Pathology <SEE 18 NOTE> Laboratory test 03/17/2010 Thin Prep SEE NOTE 19 finding W/HPV(Lsil/FESTUS/As c) CBC ([facility]) 03/17/2010 WBC 3.9 3.6-9.6 RBC 4.11 3.90-5.70 Hemoglobin (Fma/CMC/CTX) 13.4 g/dL 12.1 - 17.2 Hematocrit (a/CMC/CTX) 38.0 % 36.1 - 50.3 Mean Corpuscular Vol 92.5 82.2-97.4 Mean Corpuscular Hemaglobin 32.6 27.6-33.3 Mean Corpuscular Hemo Concen 35.3 33.0-36.0 Platelets 244 10^3/ul 150-400 Lymph% 38.0 20.5-51.1 Mixed% 12.8 Neutrophils % 49.2 RDW 14.6 High 11.6-13.7 Mean Platelet Volume 10.9 High 7.4-10.4 Ua - Micro ([facility]) 03/17/2010 Appearance CLEAR Color YELLOW Glucose NEG Bilirubin NEG Ketones NEG SP Grav >1.030 Blood TRACE PH 5.0 Protein NEG Urobil 0.2 Nitrite NEG Leukocytes (Fma/CMC/[facility]) NEG Hyaline - /Lpf Granular - /Lpf WBC (a,[facility]) 3-4 RBC 5-7 Mucus - /Lpf Epith OCCASS /Lpf Bacteria TRACE /Hpf Amorphous - /Lpf Crystals, Fluid (Fma/CMC/CTX) - Z#Comments - Lipid Profile 03/17/2010 Cholesterol 203 mg/dL High 120-200 HDL 49 mg/dL 30-85 Triglycerides 71 mg/dL 30-200 HDL Risk Factor 4.2 CALC 4.2-7.0 LDL (Calculated) 140 CALC High 0-129 VLDL (Calculated) 14 mg/dL 0-50 Comprehensive Metabolic Prof 03/17/2010 Albumin 4.1 g/dL 3.8-5.5 Alk. Phos. 69 U/L 30-110 Alt (SGPT) 28 U/L 7-35 Ast (Sgot) 23 U/L 5-34 BUN 23 mg/dL 6-26 Calcium 9.0 mg/dL 8.6-10.2 Chloride 101 mEq/L 94-112 Creatinine 1.0 mg/dL 0.6-1.4 Carbon Dioxide 26 mEq/L 21-32 Glucose 90 mg/dL 70-105 Sodium 141 mEq/L 134-149 Total Bilirubin 0.4 mg/dL 0.2-1.3 Total Protein 6.5 g/dL 6.3-8.1 Potassium 4.0 mEq/L 3.6-5.5 Globulin 2.4 g/dL 2.0-4.8 A/G Ratio 1.7 Calc 0.6-2.2 BUN/Creat Ratio 22.6 Calc 8.0-36.0 Laboratory test 02/11/2010 C Reactive Protein < 0.5 mg/dL Less Than 0.5 finding CBC With Electronic 02/11/2010 White Blood Count 6.0 CUMM 4.8-10.8 Diff Red Cell Count 3.87 CUMM Low 4.2-5.4 Hemoglobin 12.3 g/dL 12.0-16.0 Hematocrit 36 % 35-47 Mean Corpuscular Volume 94 um3 79-97 Mean Corpuscular Hemoglob 32 pg High 27-31 Mean Corpuscular HGB Cone 34 g/dL 32-36 Redcell Distribution WDTH 14 % 10.5-15 Platelet Count 276 CUMM 150-450 Mean Platelet Volume 8.6 um3 7.4-10.4 Gran % 48.6 % 38-83 Lymph % 40.2 % 25-47 Mononuclear % 8.4 % 1-9 Eosinophil % 2.2 % 0-6 Basophil % 0.6 % 0-2 Abs Lymphs 2.4 1.0-4.8 Abs Mononuclear 0.5 0-0.8 Absolute Neutrophil Count 2.9 1.5-7.7 Abs Eosinophils 0.1 0-0.6 Abs Basophils 0 0-0.2 Laboratory test finding 02/11/2010 Erythrocyte Sed Rate 21 MM/HR 0-30 Comp Metabolic Panel 02/11/2010 Sodium 139 mmol/L 135-145 Potassium 4.6 mmol/L 3.5-5.0 Chloride 104 mmol/L 101-111 Co2 (Carbon Dioxide) 30.0 mmol/L 22-32 Anion Gap 5.0 mmol/L 2-11 20 Glucose 93 mg/dL 70-100 21 BUN 17 mg/dL 6-24 Creatinine 1.00 mg/dL 0.50-1.40 One Over Creatinine 1.00 BUN/Creatinine Ratio 17.0 8-20 Calcium 9.2 mg/dL 8.1-9.9 22 Total Protein 6.6 GM/DL 6.2-8.1 Albumin 3.9 GM/DL 3.2-5.2 Globulin 2.7 GM/DL 2-4 Albumin/Globulin Ratio 1.4 1-3 Bilirubin Total 0.8 mg/dL 0.4-1.5 23 Alkaline Phosphatase 87 U/L 30-110 Alt (SGPT) 35 U/L 14-54 Ast (Sgot) 27 U/L 12-42 eGFR Non- 59.3 > 60 eGFR 71.8 > 60 24 1 Desirable <150 Borderline high 150-199 High 200-499 Very High >500 2 Desirable <200 Borderline high 200-239 High >239 3 Low <40 Desirable: 40-60 High: >60 4 Desirable: <100 mg/dL Near Optimal: 100-129 mg/dL Borderline High: 130-159 mg/dL High: 160-189 mg/dL Very High: >189 mg/dL 5 Because ethnic data is not always readily [...] 15-29 5 Kidney failure <15 (or dialysis) 6 Acute inflammation: >10.00 7 Because ethnic data is not always readily [...] 15-29 5 Kidney failure <15 (or dialysis) 8 Acute inflammation: >10.00 9 Standing orders q4-6 weeks or as directed. Copy Result to: SUHAIL ROUSE ([id number]) 10 Because ethnic data is not always readily [...] 15-29 5 Kidney failure <15 (or dialysis) 11 Acute inflammation: >10.00 12 Because ethnic data is not always readily [...] 15-29 5 Kidney failure <15 (or dialysis) 13 Because ethnic data is not always [...] 5 Kidney failure <15 (or dialysis) 14 UNABLE TO CALCULATE IND.BILI D.BILI IS <0.1 15 CBC and smear reviewed. Inverted PMN/lymph ratio noted. No blasts seen. REVIEWED BY TOBIN MUÑIZ MD 16 @11/07/12 1703: Path Review added. RFLXG=PATH. 17 FASTING; 1 SST 18 ---- RUN DATE: 04/17/10 [facility] NMI LIVE PAGE 1 RUN TIME: 1454 Specimen Inquiry RUN USER: INTERFACE -- Name: TOMMY ANGULO Status: REG REF Re04/15/10 Age/Sex: 64/F Unit#: [id number] Location: [address] [place] [address]. : 45 -- Specimen: [id number] SOUT Spec Date: 04/15/[address] [facility] Dr: Coleman story MD Spec Type: SURGICAL P Received: 04/16/10-903 Copies to: Jose rodriguez MD SPECIMEN LEFT COLON POLYPS HISTORY POST-OP DIAGNOSIS: Colonoscopy to cecum. Rectal polyps. ? hyperplastic. CLINICAL INFORMATION: Screening colonoscopy. GROSS DESCRIPTION The specimen is received in formalin labelled Tommy MackenzieLudmila Angulo, Left Colon Polyps, and consists of multiple rizzo soft tissue fragments measuring 0.5 x 0.3 x 0.2 cm. in aggregate, Submitted entirely, one cassette. DIAGNOSIS Colon, left, biopsies: Hyperplastic polyps, inflammed. Signed Electronically by: TOBIN MUÑIZ MD 04/17/10 2841 -- -- DEPARTMENT OF PATHOLOGY, [address] [place] [address] [facility] Permit #[id number] Tobin Muñiz M.D. Director Pete Hutchinson M.D. Master Fisher Dir pia -- [address] [facility] DEPARTMENT OF PATHOLOGY or Extension 9039 SLIDE MACH[employer] TENDER CYTOLOGY REPORT PATIENT: TOMMY ANGULO : 1945 AGE: 64 Y SEX: F ACCT: [id number] PROCEDURE DATE: 03/17/2010 DATE RECEIVED: 03/18/2010 REQUESTING PHYSICIAN: JOSE GOEL MD LOCATION: [facility] Case No. [id number] PATIENT DATA: [id number] SPECIMEN SUBMITTED: * * (HPVII) THIN PREP W/HPV (LSIL/ASC/FESTUS) * * ENDOCERVICAL RELEVANT HISTORY: Menopause: Y Contraceptive: NONE : 2 Para: 2 SPECIMEN ADEQUACY SATISFACTORY FOR EVALUATION. THE PRESENCE OF TRANSFORMATION ZONE COMPONENT CANNOT BE DETERMINED DUE TO ATROPHIC CHANGES. GENERAL CATEGORIZATION NEGATIVE FOR INTRAEPITHELIAL LESIONS OR MALIGNANCY ADDITIONAL COPIES SENT TO: Screened/Rescreened Electronically Signed Sign Out Date/Time: by: by: MECHELLE ANNALISE RIBERA, 03/18/2010 14:11 CT(ASCP) Thin Prep Pap tests are examined with an FDA-approved location-guidance system ([id number]). Performed @ [facility], [employer] [address] [place] [id number] 20 Anion gap measurement may be of limited value in the presence of any alkalosis, especially in a combined acid base disorder. . 21 Note change in reference range as of 03/29/08. The change was based on recommendations from the [place] [employer]. 22 Please note change in reference range effective 08 . 23 A metabolite of Naproxen, O-desmethylnaproxen, has been shown to interfere with the Jendrassik-Bunk Foss method for measuring total bilirubin. Samples from patients who have taken Naproxen have shown spurious elevation in total bilirubin levels. 24 Because ethnic data is not always [...] 15-29 5 Kidney failure <15 (or dialysis) Procedures Date CPT Code Description Status Comment 05/21/2017 Mammogram Completed 05/20/2016 Mammogram Completed 05/15/2015 Mammogram Completed 07/18/2012 Mammogram Completed 06/21/2011 Mammogram Completed 04/15/2010 Colonoscopy Completed 04/01/2010 Mammogram Completed 04/01/2010 Bone Mineral Density Test Completed Osteoporosis of spine - hips within normal limits Encounters Type Date Location Provider CPT E/M Dx Office Visit 03/23/2016 1:45p [facility] Office Xena De La Cruz, SURINDER [address]1421 M76.62 Office Visit 05/01/2015 11:10a [facility] Office Laurie Paz M.D. 47164 714.0 719.46 Office Visit 05/27/2013 10:00a Main Office Jose Goel M.D. 54834 724.4 714.0 Office Visit 05/18/2013 12:40p [facility] Office Jose Goel M.D. 68904 724.4 Office Visit 05/10/2013 10:50a [facility] Office Jose Goel M.D. 21379 724.4 Office Visit 02/16/2012 2:30p [facility] Office Jose Goel M.D. 09070 729.5 709.9 Office Visit 01/14/2012 10:50a [facility] Office Jose Goel M.D. 94448 078.12 719.45 Office Visit 05/25/2011 8:00a [facility] Office Jose Goel M.D. 03858 V70.0 V77.91 V76.10 112.9 714.0 733.00 599.70 Office Visit 04/20/2011 3:20p [facility] Office Jose Goel M.D. 81300 729.5 714.0 Office Visit 03/17/2011 8:00a [facility] Office Jose Goel M.D. 39141 729.5 714.0 733.00 Office Visit 09/17/2010 3:00p [facility] Office Jose Goel M.D. 05388 733.00 787.02 Office Visit 06/10/2010 3:30p [facility] Office Jose Goel M.D. 17553 733.00 599.70 V04.81 Office Visit 03/17/2010 8:00a [facility] Office Jose Goel M.D. 33634 V70.0 V77.91 627.9 V76.10 V76.51 V76.2 714.0 V06.5 v06.5 599.72 Office Visit 02/11/2010 3:20p [facility] Office Jose Goel M.D. 16700 309.0 714.0 Plan of Care 08/05/2017 - Laurie Paz M.D.Z01.818 Encounter for other preprocedural examinationComments:Cleared for surgery. Will fax note to ordering physician.M17.11 Unilateral primary osteoarthritis, right kneeComments:has surgery [id number] Rheumatoid arthritis, unspecifiedComments:controlled following with Yvonne Keith on humira and MTX; avoid ibuprofen/NSAIDS 1 week prior to surgery ok to take tylenol as ttnlklT65.0 Age-related osteoporosis w/o current pathological fractureComments:patient off bisphosphonatesAllComments:~B_ ~U_Medication Management~b_~u_ Patient Understands medications she's taking? Yes No Are there Barriers to Adherence? Yes No Has the patient been asked about herbal supplements and therapies, and OTC meds? Yes No
[2017-08-24] MEDS ORDERED: Buffered Lidocaine 0.9% SYRIN* 5 ML/SYR SYRINGE ONE (08:59)
[2017-08-24] MEDS ORDERED: Clindamycin 900 MG IVPREMIX(* 900 MG/50 ML SDV IV ONE (08:59)
[2017-08-24] MEDS ORDERED: Midazolam* 1 MG/ML 2 ML VIAL (2 MG) ONE ×3 (10:12→13:14)
[2017-08-24] MEDS ORDERED: fentaNYL* 50 MCG/ML 2 ML VIAL (100 MCG VIAL) ONE (10:12)
[2017-08-24] MEDS ORDERED: Morphine PF AMP (0.5MG/ML)* 5 MG/10 ML AMP ONE (12:28)
[2017-08-24] MEDS ORDERED: Bupivacaine 0.5% SDV PF* 10-30ML VIAL ONE (12:46)
[2017-08-24] MEDS ORDERED: Famotidine IV* 10 MG/ML 2 ML (20 mg) ONE (12:46)
[2017-08-24] MEDS ORDERED: Dexamethasone IV* 4 MG/ML 1 ML (4 MG) ONE (12:46)
[2017-08-24] MEDS ORDERED: Dexmedetomidine* 200 MCG/2 ML 2 ML VIAL ONE (12:46)
[2017-08-24] MEDS ORDERED: Ketorolac INJ* 30 MG/ML 1 ML VIAL ONE (12:46)
[2017-08-24] MEDS ORDERED: diPHENhydraMINE IV* 50 MG/ML 1 ml VIAL (BENADRYL) IV PRN (13:38)
[2017-08-24] MEDS ORDERED: Nalbuphine* 20 MG/ML 1 ML VIAL IV PRN (13:38)
[2017-08-24] MEDS ORDERED: Naloxone* 0.4 MG/ML 1 ML VIAL IV PRN ×2 (13:38)
[2017-08-24] MEDS ORDERED: Scopolamine PATCH Remove* 1 NOTE MISC PATCH OFF PRN (13:38)
[2017-08-24] MEDS ORDERED: Scopolamine 1.5 mg* PATCH TRANSDERM PRN (13:38)
[2017-08-24] MEDS ORDERED: DiMENhydriNATE IV* 50 MG/ML VIAL IV PUSH PRN (13:38)
[2017-08-24] MEDS ORDERED: Ondansetron INJ* 2 MG/ML VIAL IV PRN (13:38)
[2017-08-24] MEDS ORDERED: Ketorolac INJ* 30 MG/ML 1 ML VIAL IV PRN (13:38)
[2017-08-24] MEDS ORDERED: PROCHLORPERAZINE INJ 5 MG/ML 2 ML VIAL IV PRN (13:38)
[2017-08-24] MEDS ORDERED: HYDROcodone/ACETAMIN 5-325 MG* 1 TAB PO PRN ×2 (13:38)
[2017-08-24] MEDS ORDERED: Cyclobenzaprine TAB* 10 MG PO PRN (14:09)
[2017-08-24] MEDS ORDERED: Magnesium Hydroxide LIQ* 30 ML UDC PO PRN (14:09)
[2017-08-24] MEDS ORDERED: Bisacodyl SUPP* 10 MG SUPP PR PRN (14:09)
--- NOTE | 2017-08-24 15:43 | RAD ---
HISTORY: Status post right knee arthroplasty COMPARISONS: December 17, 2016 VIEWS: 2, Frontal and lateral views of the right knee FINDINGS: BONE DENSITY: Normal. BONES: The patient is status post right knee arthroplasty. There is no hardware failure or osteolysis. JOINTS: The patient is status post right knee arthroplasty ALIGNMENT: There is no dislocation. SOFT TISSUES: There is postsurgical change to the soft tissue OTHER FINDINGS: None. IMPRESSION: STATUS POST RIGHT KNEE ARTHROPLASTY
[2017-08-24] MEDS ORDERED: Warfarin TAB(*) 6 MG PO ONE (17:00)
[2017-08-24] MEDS: Acetaminophen TAB* 325 MG PO SCH ×3 (17:27→21:55)
[2017-08-24] MEDS: Docusate CAP* 100 MG PO SCH (19:47)
[2017-08-24] MEDS: Magnesium Hydroxide LIQ* 30 ML UDC PO SCH (19:48)
[2017-08-24] MEDS: Clindamycin 600 MG IVPREMIX(* 600 MG/50 ML SDV IV SCH (20:42)
[2017-08-25] MEDS: Acetaminophen TAB* 325 MG PO SCH (01:48)
[2017-08-25] MEDS ORDERED: Morphine INJ* 2 MG/ML 1 ML SYRINGE (TWO MG - NEW SYRINGE VERSION) IV PRN (05:00)
[2017-08-25] MEDS ORDERED: Acetaminophen TAB* 325 MG PO PRN (05:00)
[2017-08-25] MEDS ORDERED: Ondansetron INJ* 2 MG/ML VIAL IV PRN (05:00)
[2017-08-25] MEDS ORDERED: oxyCODONE/Acetamin 5/325 MG* TAB PO PRN (05:00)
[2017-08-25] MEDS ORDERED: diPHENhydraMINE IV* 50 MG/ML 1 ml VIAL (BENADRYL) IV PRN (05:00)
[2017-08-25] MEDS: oxyCODONE TAB* 5 MG TAB PO PRN ×3 (05:27→20:14)
[2017-08-25] MEDS: Clindamycin 600 MG IVPREMIX(* 600 MG/50 ML SDV IV SCH ×2 (05:28→13:05)
[2017-08-25 06:24] LABS: Hematocrit 35 % (35-47); Hemoglobin 11.7 g/dl (12.0-16.0); Mean Platelet Volume 8 um3 (7.4-10.4); Platelet Count 248 10^3/ul (150-450)
[2017-08-25 06:35] LABS: INR 1.02 (0.77-1.02)
[2017-08-25 06:39] LABS: EGFR Non-African American 57.8 (>60)
--- NOTE | 2017-08-25 08:24 | PN ---
Progress Note - Progress Note Date of Service: 08/25/17 SOAP: Subjective: []Patient seen at bedside. Pain is well controlled. She felt dizzy and nauseous with PT, she did vomit. After sitting to rest dizziness and nausea did resolve entirely. Denies CP, SOB. Objective: [] Vital Signs Temp 97.6 F 08/25/17 07:33 Pulse 82 08/25/17 07:33 Resp 16 08/25/17 08:00 BP 116/63 08/25/17 07:33 Pulse Ox 96 08/25/17 08:00 Intake & Output 08/24/17 08/25/17 08/25/17 18:59 06:59 18:59 Intake Total 1670 480 Output Total 580 450 Balance 1090 30 Weight 217 lb 6.4 oz Intake: IV Fluids 1250 CLINDAMYCIN 900 MG 50 LR 1200 Oral 420 480 Output: Guillen 350 450 Residual 30 Guillen 16 Fr 30 Estimated Blood Loss 200 Other: # Bowel Movements 0 Laboratory Last Values Hgb 11.7 g/dl (12.0-16.0) L 08/25/17 06:16 Hct 35 % (35-47) 08/25/17 06:16 Plt Count 248 10^3/ul (150-450) 08/25/17 06:16 MPV 8 um3 (7.4-10.4) 08/25/17 06:16 INR (Anticoag Therapy) 1.02 (0.77-1.02) 08/25/17 06:16 Sodium 136 mmol/L (133-145) 08/25/17 06:16 Potassium 4.3 mmol/L (3.5-5.0) 08/25/17 06:16 Chloride 101 mmol/L (101-111) 08/25/17 06:16 Carbon Dioxide 29 mmol/L (22-32) 08/25/17 06:16 Anion Gap 6 mmol/L (2-11) 08/25/17 06:16 BUN 27 mg/dL (6-24) H 08/25/17 06:16 Creatinine 0.95 mg/dL (0.51-0.95) 08/25/17 06:16 Est GFR ( Amer) 74.4 (>60) 08/25/17 06:16 Est GFR (Non-Af Amer) 57.8 (>60) 08/25/17 06:16 BUN/Creatinine Ratio 28.4 (8-20) H 08/25/17 06:16 Glucose 148 mg/dL (70-100) H 08/25/17 06:16 Calcium 8.9 mg/dL (8.6-10.3) 08/25/17 06:16 General: Well appearing, NAD RLE: Drain pulled this morning by Dr. Elaine without complication. Dressing CDI, Cryo unit in place. DF/PF intact. DP/PT 2+ BL LE: Calves supple and nontender without erythema, edema or palpable cords. Negative Loyd's sign. Assessment: []POD 1 s/p right total knee arthroplasty 08/24, Dr Elaine Plan: []WBAT PT/OT Lovenox, coumadin 8 mg today
[2017-08-25] MEDS: Magnesium Hydroxide LIQ* 30 ML UDC PO SCH ×2 (08:33→20:13)
[2017-08-25] MEDS: Docusate CAP* 100 MG PO SCH ×2 (08:33→20:13)
[2017-08-25] MEDS: Vitamin THERAPEUTIC TAB PO SCH (08:33)
[2017-08-25] MEDS ORDERED: ADALIMUMAB 40 MG IM SCH (09:00)
[2017-08-25] MEDS ORDERED: Enoxaparin(*) 30 MG/0.3 ML SYR SUBCUT SCH (09:00)
[2017-08-25] MEDS: oxyCODONE/Acetamin 5/325 MG* TAB PO PRN (10:55)
[2017-08-25] MEDS ORDERED: Cetirizine* 10 MG TAB PO PRN (15:11)
[2017-08-25] MEDS ORDERED: NS 0.9% 1000 ML* 1,000 ML IV ONE (16:07)
[2017-08-25] MEDS: Folic Acid TAB* 1 MG PO SCH (16:56)
[2017-08-25] MEDS ORDERED: Warfarin TAB(*) 4 MG PO ONE (17:00)
[2017-08-25] MEDS ORDERED: Calcium Carbonate CHEW TAB* 500 MG (TUMS) PO ONE (18:00)
--- NOTE | 2017-08-25 21:02 | CONS ---
CC: Laurie Paz MD; Dr. Elaine * CONSULTATION REPORT: DATE OF CONSULT: 08/25/17 PRIMARY CARE PROVIDER: Dr. Laurie Paz. REQUESTING PHYSICIAN FOR CONSULT: Dr. Elaine. MY ATTENDING PHYSICIAN WHILE IN THE HOSPITAL: Javier Lowe MD (report dictated by Beverly Jiménez NP). REASON FOR MEDICAL CONSULTATION: Evaluation of low urine output. HISTORY OF PRESENT ILLNESS: I will refer you to Dr. Elaine's H and P for further details. In short, Mrs. Juarez is a 72-year-old female patient. She has a history of rheumatoid arthritis, osteoarthritis, and GERD. She comes into the orthopedic services for an elective right total knee replacement. She has been having significant amount of right knee pain that was failing conservative therapy. She did well throughout the OR and it was noted today that she was having decreased urine output, she had only had a 100 cc out over a day shift. The patient does report that when she stands up, she does feel dizzy. She denies having any feeling like she is going to pass out and denies having any abdominal pain or any nausea or vomiting with the exception of when she had lunch today, she felt a little nauseous. She denies having any chest pain or shortness of breath. She says that her knee pain is well controlled. She says that she has been trying to eat or drink in the postoperative setting. She says that she did feel lightheaded now. She feels well with the exception she is having some pain in her right knee, but because of low urine output, we were asked to evaluate in consult. PAST MEDICAL HISTORY: Significant for: 1. Rheumatoid arthritis. 2. Osteoarthritis. 3. GERD. PAST SURGICAL HISTORY: She has had a right total knee arthroplasty. MEDICATIONS: Home meds include: 1. Multivitamin 1 tablet daily. 2. Methotrexate 17.5 mg p.o. weekly. 3. Magnesium 250 mg daily. 4. Folic acid 750 mcg daily. 6. Calcium carbonate 1 tablet p.o. daily. 7. Biotin 10,000 mcg p.o. daily. 8. Humira 40 mg IM as directed. ALLERGIES TO MEDICATIONS: Include PENICILLIN. FAMILY HISTORY: Mother at the age of 103. Father had an OK in his 70s. SOCIAL HISTORY: She is a former smoker. She quit when she was in her 60s. She does not drink alcohol. 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 She has 2 children. Surrogate decision makers are her children. REVIEW OF SYSTEMS: There is no documented fever. She denied having any significant weight change. There was no double vision. She denies having any ear discharge. There is no rhinorrhea. No sore throat. No thyroid enlargement. She denies having any chest pain. Again, there is no orthopnea. She denies having any nocturnal dyspnea. There was no abdominal pain. She denies any nausea currently. She denies having any abdominal discomfort. She says she felt nauseous this afternoon, but none now. No vomiting. No dysuria, no frequency, no seizure, no loss of consciousness, no pruritus and no skin ulcerations. Review of 14 systems was completed, all others negative. PHYSICAL EXAM: Vital Signs: Blood pressure 128/67, pulse 92, respirations 18, O2 sat 94%, temperature 98.4. General: At this time, Mrs. Juarez is a 72- year-old female patient. She is sitting in the hospital bed. She does not appear to be in any acute distress. HEENT: Head: Atraumatic, normocephalic. Eyes: EOMs intact. Sclerae anicteric and not pale. Neck: Supple. Throat: Oral mucosa appears to be moist. No oropharyngeal erythema. Heart: Sounds S1 , S2. Regular rate and rhythm. No murmurs, rubs, or gallops. Lungs: Clear to auscultation bilaterally. No wheezes, rales, or rhonchi. Abdomen: Soft, flat, nontender. Bowel sounds are present. Extremities: Pulses are 2+ throughout. Distal CSM checks are intact to the right lower extremity. She has trouble moving this extremity, as this is the operative leg, but she can move the upper extremities with 5/5 strength. Neurologically, she is awake, alert, oriented x3. No gross focal deficits. Her skin was intact. DIAGNOSTIC STUDIES/LAB DATA: Hemoglobin 11.7, hematocrit 35, platelet count 248. INR 1.02. Sodium 135, potassium 4.3, chloride 101, bicarb 29, BUN 27, creatinine of 0.95, glucose 148, calcium 8.9. She did have a preop EKG, which shows normal sinus rhythm, rate of 81, no ST elevations or T-wave inversions. She had a preop chest x-ray, which showed no evidence for acute disease. Old medical records were reviewed. ASSESSMENT AND PLAN: Mrs. Juarez is a 72-year-old female patient coming into the orthopedic service yesterday for an elective right total knee. Postoperatively, it was noted that she has had decreased urine output. We were asked to evaluate in consult. Recommendations at this point are: 1. Status post right total knee. I will defer the management to Dr. Elaine and her team. 2. Low urine output. I suspect this is probably secondary that the patient is behind in her fluid status. It sounds like she is orthostatic, she is standing up, she is getting dizzy. So, I would like to check orthostatic blood pressures , give her another liter of fluids wide open, increase her maintenance fluids to 125 an hour and watch. We will repeat her BMP in the morning and follow. 3. Rheumatoid arthritis. She has a followup with Yvonne Lopez. The recommendations have been made that she is to restart her methotrexate, Humira after she follows up with Dr. Elaine. 4. Sugar. Continue PPI therapy. 5. Rheumatoid arthritis. I would put her back on her folic acid, which I have ordered. 6. Arthritis. Continue with supportive care and current pain management. 7. DVT prophylaxis. Defer to the primary team. 8. Code status. Full code. 9. Fluids, electrolytes, and nutrition. She can have a regular diet. TIME SPENT: On the consult was 60 minutes, greater than half that time was spent [id number] with the patient obtaining my history and physical, the other half time was spent going over the plan of care with the patient and implementing the plan of care. I did discuss this with my attending, Dr. Lowe; he is in agreement. BEVERLY JIMÉNEZ NP [id number]/[facility] #: [id number] GELA
--- NOTE | 2017-08-25 21:10 | OP ---
DATE OF OPERATION: 08/24/17 - ROOM #347 DATE OF : 45 SURGEON: Sherie Elaine MD [employer]SE [employer] OPERATOR: TIFFANIE Puga. Ms. Nunez did help throughout the procedure with preparation of the leg, wound retraction, manipulation of the knee, and wound closure. ANESTHESIOLOGIST: Dr. Naik. ANESTHESIA: Spinal. PRE-OP DIAGNOSIS: Severe end-stage degenerative osteoarthritis of the right knee joint. POST-OP DIAGNOSIS: Severe end-stage degenerative osteoarthritis of the right knee joint. OPERATIVE PROCEDURE: Right total knee arthroplasty. TOURNIQUET TIME: 42 minutes. COMPLICATIONS: None. SPECIMEN: Bone and cartilage from the right knee joint sent to Pathology. ESTIMATED BLOOD LOSS: 200 cc. HARDWARE USED: This is a cemented [employer] total knee arthroplasty hardware, two packages of Simplex bone and cement. For the femur, a size 5 narrow right Legion femoral component. For the tibia, a size 4 right Raisa II base plate. For the insert, an 11-mm posterior stabilized articular insert size 3-4 and for the patella a 32 mm, 3-peg all-poly patella. BRIEF HISTORY/INDICATIONS: Ms. Juarez is a 72-year-old female with years of increasingly severe right knee pain. Radiographs showed [id number] arthritis. She had failed conservative treatment with antiinflammatories, pain medication, intraarticular injections, physical therapy, and weight loss. She elected to undergo right total knee arthroplasty due to continued pain and decreased quality of life. Informed consent was obtained from the patient. She understood the risks of surgery included, but were not limited to bleeding, infection, damage to nearby structures, continued pain, need for further surgery, intraoperative fracture, nerve palsy, hardware failure and loosening, knee stiffness, loss of motion, stroke, heart attack, blood clot, and . She wished to proceed. INTRAOPERATIVE FINDINGS: Intraoperatively, the patient was noted to have severe end-stage arthritis with complete loss of cartilage in all 3 compartments. The patient was noted to have osteopenia throughout the case. DESCRIPTION OF PROCEDURE: Ms. Juarez was identified in the preanesthesia unit. Her right lower extremity was marked as the correct operative side. Informed consent was signed and placed in the chart. The patient was taken to the operating room and placed under spinal anesthesia. A Guillen catheter was placed. Tourniquet was placed on the right thigh. The right lower extremity was prepped and draped in the usual sterile fashion. Preop time-out was made to once again correctly identify the patient side and site. Appropriate preoperative antibiotics were given within 1 hour of incision. Tourniquet was inflated until the tourniquet time for this procedure was 42 minutes. A 14 cm midline incision was made with a 10 blade and carried down to the extensor mechanism. A new 10 blade used to make a standard medial para- patellar arthrotomy. Patella was subluxed laterally. Electrocautery was used to subperiosteally elevate soft tissue off the superomedial tibia to the mid sagittal plane. The knee was flexed up. Any osteophytes were removed from around the medial tibial plateau. The anterior horn of the lateral meniscus and the ACL were sharply removed. A drill was used to enter the distal femur. Intramedullary distal femoral cutting guide was pinned on the distal femur. Oscillating saw was used to make the appropriate distal femoral cut. The external rotational guide was pinned on the distal femur and the distal femur was sized to a size 5. Size 5 multi-cutting jig was pinned on the distal femur. Oscillating saw was used to make the appropriate 4 chamfer cuts. The PCL was completely released. The tibia was subluxed anteriorly. Extramedullary tibial cutting guide was pinned on the proximal tibia. The oscillating saw was used to make a proximal tibial cut perpendicular to the mechanical axis of the tibia. The bone was carefully removed. The knee was brought out into full extension. The spacer block has good fit with the knee in full extension. Medial and lateral ligaments were well balanced. The flexion and extension gaps were well balanced. The knee was flexed up. Lamina counseling director was placed both medially and laterally. Any remaining meniscus was carefully removed using electrocautery. Curved osteotome was used to remove posterior osteophytes. Tibial tray and drop aria were placed to once again confirm a satisfactory tibial cut and this was confirmed. A size 5 narrow right femoral trial was impacted on to the distal femur. The trial had excellent fit. The box of the posterior stabilized implant was prepared using reamer and box cut osteotome. Size 4 tibial tray trial within an 11 mm insert trial were placed and the knee was taken through range of motion. The knee had full extension to 125 degrees, flexion limited by the patient's body habitus. There was satisfactory patellofemoral tracking. The patella was everted. A 9 mm of patellar bone and cartilage were carefully removed using an oscillating saw. The patella was sized to size 32. The 3 peg holes were drilled through the size 32 guide. A trial 32 patella was placed and the knee was taken through range of motion. There was satisfactory patellofemoral tracking. All trials were carefully removed. The tibia was subluxed anteriorly and sized to a size 4. Proximal tibia was prepared using a size 4 keel punch. All bony cut surfaces were copiously irrigated with sterile saline and dried. Final implants were cemented into place starting with the tibia followed by the femur , and last the patella. An 11-mm insert trial was placed and the knee was brought out into full extension. The tourniquet was turned down at 42 minutes. The knee was copiously irrigated with sterile saline. Electrocautery was used to obtain meticulous hemostasis. Once the cement had fully cured, the insert trial was removed. Any excess cement was removed from around the capsule and hardware. Final insert chosen was an 11-mm posterior stabilized articular insert size 3-4. This was locked into position on the tibial tray without difficulty. Stability of the insert was checked and rechecked and noted to be stable. The extensor mechanism was closed over a medium Hemovac drain using interrupted #1 Vicryl. The rest of the incision was closed in a layered fashion using 0 and 2-0 Vicryl. The skin was closed using running 3-0 nylon suture. Sterile Xeroform, 4x4s, and Webril were used to cover the incision. The patient's anesthesia was reversed without difficulty. She was taken to the PACU in stable condition. Intended weightbearing will be weightbearing as tolerated. Intended DVT prophylaxis will be Coumadin with a Lovenox bridge. [id number]/[facility] #: [id number] GELA
[2017-08-25] MEDS ORDERED: Calcium Carbonate CHEW TAB* 500 MG (TUMS) ONE (21:43)
[2017-08-25] MEDS: Calcium Carbonate CHEW TAB* 500 MG (TUMS) PO PRN (21:44)
[2017-08-26] MEDS: oxyCODONE TAB* 5 MG TAB PO PRN ×2 (00:08→08:44)
[2017-08-26] MEDS: Calcium Carbonate CHEW TAB* 500 MG (TUMS) PO PRN (01:46)
[2017-08-26] MEDS: oxyCODONE/Acetamin 5/325 MG* TAB PO PRN ×2 (02:45→20:31)
[2017-08-26 05:42] LABS: ABS Basophils 0 10^3/ul (0-0.2); ABS Eosinophils 0 10^3/ul (0-0.6); ABS Lymphocytes 1.9 10^3/ul (1.0-4.8); ABS Monocytes 1.2 10^3/ul (0-0.8); ABS Neutrophils 6.6 10^3/ul (1.5-7.7); ABS Nucleated RBC 0 10^3/ul; Eosinophil % 0 % (0-6); Hematocrit 30 % (35-47); Hemoglobin 10.3 g/dl (12.0-16.0); Lymphocyte % 19.6 % (25-47); Mean Corpuscular HGB Conc 34 g/dl (31-36); Mean Corpuscular Hemoglobin 32 pg (27-31); Mean Corpuscular Volume 94 fL (80-97); Mean Platelet Volume 8 um3 (7.4-10.4); Nucleated Red Blood Cells % 0.1; Platelet Count 211 10^3/ul (150-450); Red Blood Count 3.18 10^6/ul (4.0-5.4); Red Cell Distribution Width 14 % (10.5-15); White Blood Count 9.8 10^3/ul (3.5-10.8)
[2017-08-26 05:57] LABS: INR 2.53 (0.77-1.02)
[2017-08-26 05:58] LABS: EGFR Non-African American 62.3 (>60)
--- NOTE | 2017-08-26 08:22 | PN ---
Progress Note - Progress Note Date of Service: 08/26/17 SOAP: Subjective: []patient seen at bedside. She is feeling much better today without nausea, vomiting, abd upset, dizziness, CP or SOB. Seen by hospitalist service last night due to low urine output. Fluids were increased and urine output has improved. Objective: [] Vital Signs Temp 98.5 F 08/26/17 07:30 Pulse 92 08/26/17 08:06 Resp 20 08/26/17 08:00 BP 151/74 08/26/17 07:30 Pulse Ox 92 08/26/17 08:06 Intake & Output 08/25/17 08/26/17 08/26/17 18:59 06:59 18:59 Intake Total 2812 3149 Output Total 225 575 300 Balance 2587 2574 -300 Intake: IV Fluids 1677 2029 LR 1677 1043 NS (0.9%) 986 IVPB 110 LR 110 Oral 1025 1120 Output: Urine 175 575 300 Emesis 50 Other: Estimated Void Medium # Bowel Movements 0 Laboratory Last Values WBC 9.8 10^3/ul (3.5-10.8) 08/26/17 05:15 RBC 3.18 10^6/ul (4.0-5.4) L 08/26/17 05:15 Hgb 10.3 g/dl (12.0-16.0) L 08/26/17 05:15 Hct 30 % (35-47) L 08/26/17 05:15 MCV 94 fL (80-97) 08/26/17 05:15 MCH 32 pg (27-31) H 08/26/17 05:15 MCHC 34 g/dl (31-36) 08/26/17 05:15 RDW 14 % (10.5-15) 08/26/17 05:15 Plt Count 211 10^3/ul (150-450) 08/26/17 05:15 MPV 8 um3 (7.4-10.4) 08/26/17 05:15 Neut % (Auto) 67.9 % (38-83) 08/26/17 05:15 Lymph % (Auto) 19.6 % (25-47) L 08/26/17 05:15 Knott % (Auto) 12.3 % (1-9) H 08/26/17 05:15 Eos % (Auto) 0 % (0-6) 08/26/17 05:15 Baso % (Auto) 0.2 % (0-2) 08/26/17 05:15 Absolute Neuts (auto) 6.6 10^3/ul (1.5-7.7) 08/26/17 05:15 Absolute Lymphs (auto) 1.9 10^3/ul (1.0-4.8) 08/26/17 05:15 Absolute Monos (auto) 1.2 10^3/ul (0-0.8) H 08/26/17 05:15 Absolute Eos (auto) 0 10^3/ul (0-0.6) 08/26/17 05:15 Absolute Basos (auto) 0 10^3/ul (0-0.2) 08/26/17 05:15 Absolute Nucleated RBC 0 10^3/ul 08/26/17 05:15 Nucleated RBC % 0.1 08/26/17 05:15 INR (Anticoag Therapy) 2.53 (0.77-1.02) H 08/26/17 05:15 Sodium 132 mmol/L (133-145) L 08/26/17 05:15 Potassium 4.1 mmol/L (3.5-5.0) 08/26/17 05:15 Chloride 102 mmol/L (101-111) 08/26/17 05:15 Carbon Dioxide 26 mmol/L (22-32) 08/26/17 05:15 Anion Gap 4 mmol/L (2-11) 08/26/17 05:15 BUN 21 mg/dL (6-24) 08/26/17 05:15 Creatinine 0.89 mg/dL (0.51-0.95) 08/26/17 05:15 Est GFR ( Amer) 80.2 (>60) 08/26/17 05:15 Est GFR (Non-Af Amer) 62.3 (>60) 08/26/17 05:15 BUN/Creatinine Ratio 23.6 (8-20) H 08/26/17 05:15 Glucose 124 mg/dL (70-100) H 08/26/17 05:15 Calcium 8.6 mg/dL (8.6-10.3) 08/26/17 05:15 General: Well appearing, NAD RLE: Dressing changed by Dr. Elaine this morning without complication. DF/PF intact/ DP/PT 2+ BL LE: Calves supple and nontender without erythema, edema or palpable cords. Assessment: []POD 2 s/p right total knee arthroplasty 08/24, Dr Elaine Plan: []WBAT PT/OT D/C lovenox, coumadin 0 mg today DC home tomorrow
[2017-08-26] MEDS: Magnesium Hydroxide LIQ* 30 ML UDC PO SCH ×2 (08:43→20:32)
[2017-08-26] MEDS: Docusate CAP* 100 MG PO SCH ×2 (08:44→20:31)
[2017-08-26] MEDS: Vitamin THERAPEUTIC TAB PO SCH (08:44)
[2017-08-26] MEDS: Folic Acid TAB* 1 MG PO SCH (08:44)
--- NOTE | 2017-08-26 14:45 | PN ---
Subjective Date of Service: 08/26/17 Interval History: Patient seen and examined at bedside. Denies fever, chills, shortness of breath , chest discomfort, N/V/D. Family History: Unchanged from Admission Social History: Unchanged from Admission Past Medical History: Unchanged from Admission Objective Active Medications: Acetaminophen (Tylenol Tab*) 650 mg PO Q4H PRN Reason: PAIN OR TEMPERATURE Bisacodyl (Dulcolax Supp*) 10 mg NM DAILY PRN Reason: constipation Calcium Carbonate (Tums*) 500 mg PO Q4H PRN Reason: DYSPEPSIA Cetirizine HCl (Zyrtec*) 10 mg PO DAILY PRN Reason: ITCHING Cyclobenzaprine HCl (Flexeril Tab*) 10 mg PO TID PRN Reason: SPASMS Diphenhydramine HCl (Benadryl Iv*) 25 mg IV Q6H PRN Reason: itching Docusate Sodium (Colace Cap*) 100 mg PO BID BERE Folic Acid (Folvite Tab*) 1 mg PO DAILY BERE Lactated Ringer's (Lactated Ringers 1000 Ml Bag*) 1,000 mls @ 100 mls/hr IV PER RATE BERE Magnesium Hydroxide (Milk Of Magnesia Liq*) 30 ml PO BID BERE Magnesium Hydroxide (Milk Of Magnesia Liq*) 30 ml PO Q6H PRN Reason: constipation Morphine Sulfate (Morphine Inj (Syringe)*) 2 mg IV Q2H PRN Reason: PAIN - UNCONTROLLED Multivitamins (Theragran Tab*) 1 tab PO DAILY BERE Non-Formulary Medication (Adalimumab (Nf) [Humira Pen (Nf)]) 40 mg IM .SEE INSTRUCTIONS BERE Ondansetron HCl (Zofran Inj*) 4 mg IV Q6H PRN Reason: nausea Oxycodone HCl (Roxycodone Tab*) 10 mg PO Q4H PRN Reason: PAIN - SEVERE Oxycodone/Acetaminophen (Percocet 5/325 Tab*) 2 tab PO Q4H PRN Reason: PAIN - MODERATE TO SEVERE Oxycodone/Acetaminophen (Percocet 5/325 Tab*) 1 tab PO Q4H PRN Reason: PAIN - MODERATE Pharmacy Profile Note (Scopolamine Patch Remove*) 1 note PATCH OFF .AFTER 72 HOURS PRN Reason: nausea Stop: 08/27/17 13:39 Scopolamine (Transderm-Scop 1.5 Mg Patch*) 1 patch TRANSDERM Q72H PRN Reason: nausea Vital Signs - 8 hr 08/26/17 08/26/17 08/26/17 07:30 08:00 08:06 Temperature 98.5 F Pulse Rate 94 92 Respiratory 20 20 Rate Blood Pressure 151/74 (mmHg) O2 Sat by Pulse 91 92 92 Oximetry 08/26/17 08/26/17 08/26/17 08:44 11:22 11:36 Temperature 98.6 F Pulse Rate 105 Respiratory 18 16 20 Rate Blood Pressure 173/82 (mmHg) O2 Sat by Pulse 92 Oximetry 08/26/17 08/26/17 11:49 14:24 Temperature Pulse Rate 95 Respiratory 18 Rate Blood Pressure 140/69 (mmHg) O2 Sat by Pulse Oximetry Oxygen Devices in Use Now: None Appearance: NAD, sitting up in bed Ears/Nose/Mouth/Throat: Mucous Membranes Moist Respiratory: Symmetrical Chest Expansion and Respiratory Effort, Clear to Auscultation Cardiovascular: NL Sounds; No Murmurs; No JVD, RRR Abdominal: NL Sounds; No Tenderness; No Distention Extremities: No Edema Skin: No Rash or Ulcers, - - Dressing to right knee clean, dry and intact Neurological: Alert and Oriented x 3, NL Muscle Strength and Tone Lines/Tubes/Other Access: Clean, Dry and Intact Peripheral IV - site benign Result Diagrams: 08/26/17 05:15 08/26/17 05:15 Assess/Plan/Problems-Billing Assessment: Ms. Juarez is a 72 yo female with PMH significant for RA, osteoarthritis, and GERD who presented to the hospital for an elective right total knee replacement. - Patient Problems (1) Status post total right knee replacement Code(s): Z96.651 - PRESENCE OF RIGHT ARTIFICIAL KNEE JOINT SNOMED Code(s): 5630404619457 Comment: - POD #2 - Management per Ortho - Continue OT/PT, pain management, and bowel regimen (2) Low urine output Code(s): R34 - ANURIA AND OLIGURIA SNOMED Code(s): 77901717 Comment: - Resolved - Suspect secondary to hypovalemia (3) Rheumatoid arthritis Code(s): M06.9 - RHEUMATOID ARTHRITIS, UNSPECIFIED SNOMED Code(s): 12174797 Comment: - Continue folic acid (4) GERD (gastroesophageal reflux disease) Code(s): K21.9 - GASTRO-ESOPHAGEAL REFLUX DISEASE WITHOUT ESOPHAGITIS SNOMED Code(s): 603963157 Comment: - Continue PPI (5) DVT prophylaxis Code(s): NKI5246 - SNOMED Code(s): 271942742 Comment: - Warfarin per ortho (6) Full code status Code(s): Z78.9 - OTHER SPECIFIED HEALTH STATUS SNOMED Code(s): 480564748 Status and Disposition: Inpatient. Disposition per Orthopedics.
[2017-08-27] MEDS: oxyCODONE/Acetamin 5/325 MG* TAB PO PRN ×3 (03:36→12:20)
[2017-08-27 06:30] LABS: Hematocrit 29 % (35-47); Hemoglobin 10.1 g/dl (12.0-16.0); Mean Platelet Volume 8 um3 (7.4-10.4); Platelet Count 205 10^3/ul (150-450)
[2017-08-27 06:53] LABS: INR 4.85 (0.77-1.02)
[2017-08-27] MEDS: Vitamin THERAPEUTIC TAB PO SCH (08:28)
[2017-08-27] MEDS: Folic Acid TAB* 1 MG PO SCH (08:28)
[2017-08-27] MEDS: Docusate CAP* 100 MG PO SCH (08:28)
[2017-08-27] MEDS: Magnesium Hydroxide LIQ* 30 ML UDC PO SCH (08:30)
--- NOTE | 2017-08-27 08:59 | PN ---
Progress Note - Progress Note Date of Service: 08/27/17 SOAP: Subjective: 72 y/o female s/p R TKA by Dr. Elaine 08/24, uncomplicated. VSS, afebrile overnight. Patient overall feeling well, eager for D/C to home, family to help. Objective: General- Well appearing, NAD AO, sitting in chair comfortably. MSK- Dressing removed, small button hole suture noted at base of wound, removed after area sterilized, tolerated well. Mild ecchymosis, no drainage noted, minimal erythema prox incision. Redressed, + DF/PF b/l, PT 2+, mild edema b/l , SITLT b/l. Vital Signs Temp 98.1 F 08/27/17 07:26 Pulse 88 08/27/17 07:26 Resp 16 08/27/17 11:13 BP 139/87 08/27/17 07:26 Pulse Ox 93 08/27/17 07:26 Intake & Output 08/26/17 08/27/17 08/27/17 18:59 06:59 18:59 Intake Total 720 1370 Output Total 650 525 150 Balance 70 845 -150 Intake: Oral 720 1370 Output: Urine 650 525 150 Other: Estimated Void Small Medium # Bowel Movements 0 # Voids 1 1 Assessment: Stable 72 y/o female s/p R TKA by Dr. Elaine 08/24, uncomplicated. Plan: - D/C Today to home - INR supratheraputic- HOld over weekend, fall precautions verbally given to patient. - COntinue PT - Follow up with DR. Elaine within 10 days Active Medications Generic Name Dose Route Start Last Admin Trade Name Freq PRN Reason Stop Dose Admin Acetaminophen 650 mg 08/25/17 05:00 Tylenol Tab* PO Q4H PRN PAIN OR TEMPERATURE Bisacodyl 10 mg 08/24/17 14:09 Dulcolax Supp* TN DAILY PRN constipation Calcium Carbonate 500 mg 08/25/17 21:37 08/26/17 01:46 Tums* PO 500 mg Q4H PRN Administration DYSPEPSIA Cetirizine HCl 10 mg 08/25/17 15:11 08/25/17 15:22 Zyrtec* PO 10 mg DAILY PRN Administration ITCHING Cyclobenzaprine HCl 10 mg 08/24/17 14:09 Flexeril Tab* PO TID PRN SPASMS Diphenhydramine HCl 25 mg 08/25/17 05:00 Benadryl Iv* IV Q6H PRN itching Docusate Sodium 100 mg 08/24/17 21:00 08/27/17 08:28 Colace Cap* PO 100 mg BID BERE Administration Folic Acid 1 mg 08/25/17 17:00 08/27/17 08:28 Folvite Tab* PO 1 mg DAILY BERE Administration Magnesium Hydroxide 30 ml 08/24/17 21:00 08/27/17 08:30 Milk Of Magnesia Liq* PO Not Given BID BERE Magnesium Hydroxide 30 ml 08/24/17 14:09 Milk Of Magnesia Liq* PO Q6H PRN constipation Morphine Sulfate 2 mg 08/25/17 05:00 Morphine Inj (Syringe)* IV Q2H PRN PAIN - UNCONTROLLED Multivitamins 1 tab 08/25/17 09:00 08/27/17 08:28 Theragran Tab* PO 1 tab DAILY BERE Administration Non-Formulary Medication 40 mg 08/25/17 09:00 Adalimumab (Nf) [Humira Pen (Nf)] IM .SEE INSTRUCTIONS [facility] Ondansetron HCl 4 mg 08/25/17 05:00 08/25/17 09:25 Zofran Inj* IV 4 mg Q6H PRN Administration nausea Oxycodone HCl 10 mg 08/25/17 05:00 08/26/17 08:44 Roxycodone Tab* PO 10 mg Q4H PRN Administration PAIN - SEVERE Oxycodone/Acetaminophen 2 tab 08/25/17 05:00 08/27/17 08:28 Percocet 5/325 Tab* PO 2 tab Q4H PRN Administration PAIN - MODERATE TO SEVERE Oxycodone/Acetaminophen 1 tab 08/25/17 05:00 08/26/17 14:24 Percocet 5/325 Tab* PO 1 tab Q4H PRN Administration PAIN - MODERATE Pharmacy Profile Note 1 note 08/24/17 13:38 Scopolamine Patch Remove* PATCH OFF 08/27/17 13:39 .AFTER 72 HOURS PRN nausea Scopolamine 1 patch 08/24/17 13:38 Transderm-Scop 1.5 Mg Patch* TRANSDERM Q72H PRN nausea
[2017-08-27 12:20] VITALS: BP 140/76
--- NOTE | 2017-08-28 01:55 | DS ---
DISCHARGE SUMMARY: DATE OF ADMISSION: 08/24/17 DATE OF DISCHARGE: 08/27/17 ATTENDING PROVIDER: Dr. Elaine * (DICTATED BY TIFFANIE MATTHEWS) CHIEF COMPLAINT: 1. Right knee pain. 2. Osteoarthritis. 3. Rheumatoid arthritis. 4. Gastroesophageal reflux disease. DISCHARGE DIAGNOSES: 1. Status post right total knee arthroplasty. 2. Osteoarthritis. 3. Rheumatoid arthritis. 4. Gastroesophageal reflux disease. PROCEDURE: Right total knee arthroplasty. CONSULTATIONS: 1. Physical Therapy. 2. Occupational Therapy. 3. Hospitalist. HISTORY OF PRESENT ILLNESS: Ms. Juarez is a very pleasant 72-year-old female with a longstanding history of severe end-stage osteoarthritis of the right knee who failed conservative treatment and elected to undergo right total knee arthroplasty on 08/24/[address] Elaine. HOSPITAL COURSE: Ms. Juarez was admitted to [facility] on 08/24/17 , when she underwent a right total knee arthroplasty, which was uncomplicated. Postoperatively she recovered on the surgical short stay unit. Her Guillen was removed on postoperative day 2 and she was voiding on her own without difficulty. She advanced to a regular diet and her pain was controlled with p.o. Percocet. She was restarted on her home medications. Her labs and vital signs remained stable. She is weightbearing as tolerated on the right lower extremity. She advanced appropriately with physical therapy and occupational therapy. Her DVT prophylaxis was managed with Lovenox and Coumadin until she reached therapeutic INR. By postoperative day 3, she was orthopedically and medically stable for discharge to go home with home services. PHYSICAL EXAMINATION: General: Well appearing, no acute distress. Alert and oriented. Resting in chair comfortably. Vital Signs: Temperature 98.1, pulse 88, respirations 16, blood pressure 139/87, pulse oxygenation 93% on room air. Musculoskeletal: Dressing removed from right knee. suture at the base of the wound, which was removed after the area was sterilized. The patient tolerated well. Minimal ecchymosis around the incision site with no drainage noted. Minimal erythema on the proximal incision redressed. Positive dorsiflexion and plantar flexion bilaterally. Posterior tibial pulses 2+. Mild edema bilaterally. Sensation is intact to light touch, bilateral lower extremities. LABORATORY DATA: On date of discharge, including H and H 10.09/06 with a INR of 4.85. Radiographs: Postoperative films show a right arthroplasty in proper alignment. DISCHARGE MEDICATIONS: 1. Tylenol 650 mg p.o. q.6 hours p.r.n. 2. Biotin 10,000 mcg p.o. q.a.m. 3. Humira 40 mg IM per physician's instructions. 4. Folic acid 750 mg p.o. q.a.m. 5. Magnesium 250 mg p.o. q.a.m. 6. Methotrexate 17.5 mg p.o. weekly. 7. Multivitamin 1 tablet daily p.o. q.a.m. 8. Coumadin 2 mg 1 to 3 tablets p.o. p.r.n. per physician's instructions. 9. Percocet 5/325 mg p.o. 1 to 2 tablets every 4 to 6 hours as needed for pain. CONDITION ON DISCHARGE: Stable. DISCHARGE INSTRUCTIONS: Ms. Juarez is a very pleasant 72-year-old female, postoperative day 3, status post right total knee arthroplasty, which was uncomplicated. She is orthopedically and medically stable for discharge to go home with home services. She will have INR draws every Wednesday and with visiting home nurse services. She will hold her Coumadin over the weekend and will resume after her INR draw on Wednesday per physician's instructions. She will take Percocet as needed for pain control, she will take Colace up to 3 times a day for constipation. She will follow up with Dr. Elaine in approximately 10 to 14 days for incision check and suture removal. She is instructed to go to the ER if she develops chest pain and shortness of breath. Should she develop fever, increasing pain or redness, she is to call the office immediately. TIFFANIE MATTHEWS [id number]/[facility] #: [id number] GELA
== END 2017-08-27 12:50 | disposition home health service (06) | DRG 470 ==
LOC: AA 08:34 → SSU 16:49
PROVIDERS: ADMIT Orthopaedic Surgery Adult Reconstructive Orthopaedic Surgery; ATTEND Orthopaedic Surgery Adult Reconstructive Orthopaedic Surgery
PROC: 0SRC0J9 Replacement of Right Knee Joint with Synthetic Substitute, Cemented, Open Approach (ICD-10-PCS; principal; 2017-08-24 11:30)
DX: M17.11 Unilateral primary osteoarthritis, right knee (principal); M06.9 Rheumatoid arthritis, unspecified; K21.9 Gastro-esophageal reflux disease without esophagitis; M25.761 Osteophyte, right knee; M85.861 Other specified disorders of bone density and structure, right lower leg; R39.198 Other difficulties with micturition; Z88.0 Allergy status to penicillin; Z82.49 Family history of ischemic heart disease and other diseases of the circulatory system
CPT/HCPCS: 36415; 80048; 85014; 85018; 85025; 85049; 85610; 88305; 88311; 93005; A9270-GY; C1776; J0780; J1100; J1650; J1885; J2250; J2300; J2405; J3010

== ENCOUNTER 2018-04-25 22:04 | Inpatient (IN) | payer MEDICARE ==
[2018-04-25] MEDS ORDERED: NS 0.9% 1000 ML* 1,000 ML IV ONE ×2 (22:11→22:37)
[2018-04-25] MEDS ORDERED: Tetan/Diph/Pertus SYR(Tdap)* 0.5 ML SYR(BOOSTRIX) use SYR IM ONE (22:43)
--- NOTE | 2018-04-25 22:54 | ED ---
Altered Mental Status - HPI Summary HPI Summary: Pt is a 72 y/o female BIBA who presents to the ED s/p fall. Her last known normal was 2 days ago, and she cannot recall the past 2 days. Pt woke up in the bathroom and couldnt get up off the floor. There is presumed LOC. Pt called her son today, who called 911. She has not been eating or drinking, and states her right knee hurts from crawling on the floor. EMS found pills scattered around, and a clogged toilet. - History Of Current Complaint Stated Complaint: FALL Time Seen by Provider: 04/25/18 22:10 Hx Obtained From: Patient, EMS Last Known Well Date: 04/23/18 Onset/Duration: Resolved Timing: Constant Character: Confusion Aggravating Factor(s): Unknown Alleviating Factor(s): Unknown Associated Signs And Symptoms: Positive: Weakness - Allergies/Home Medications Allergies/Adverse Reactions: Allergies Allergy/AdvReac Type Severity Reaction Status Date / Time penicillin G Allergy Unknown Verified 04/26/18 02:38 Reaction Details PMH/Surg Hx/FS Hx/Imm Hx Endocrine/Hematology History: Denies: Hx Diabetes, Hx Thyroid Disease Cardiovascular History: Denies: Hx Hypertension, Hx Pacemaker/ICD Respiratory History: Denies: Hx Asthma, Hx Chronic Obstructive Pulmonary Disease (COPD) GI History: Reports: Hx Gastroesophageal Reflux Disease Denies: Hx Ulcer Musculoskeletal History: Reports: Hx Arthritis - RA, Hx Back Problems, Hx Osteoporosis - on Boniva, no longer takes Sensory History: Reports: Hx Contacts or Glasses - reading Denies: Hx Hearing Aid Opthamlomology History: Reports: Hx Contacts or Glasses - reading Psychiatric History: Denies: Hx Panic Disorder - Cancer History Cancer Type, 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 Hx Chemotherapy: No Hx Radiation Therapy: No - Surgical History Surgery Procedure, Year, and Place: Right knee replacement Infectious Disease History: No Infectious Disease History: Denies: Hx Hepatitis, Hx Human Immunodeficiency Virus (HIV), History Other Infectious Disease, Traveled Outside the [place] in Last 30 Days - Family History Known Family History: Negative: Diabetes - Social History Alcohol Use: Rare Hx Substance Use: No Substance Use Type: Reports: None Hx Tobacco Use: Yes Smoking Status (MU): Former Smoker Amount Used/How Often: 1/2 ppd Length of Time of Smoking/Using Tobacco: 40 years Have You Smoked in the Last Year: No Review of Systems Positive: Diarrhea Positive: incontinence Positive: Bruising Neurological: Other - LOC, AMS Positive: Weakness All Other Systems Reviewed And Are Negative: Yes Physical Exam - Summary Physical Exam Summary: Appearance: Well appearing, no pain distress Skin: warm, dry, reflects adequate perfusion, erythema on both elbows and around buttock, bruise on left shoulder and arm, abrasions on left knee, right knee replacement scar, pressure sores on elbows and knees Head/face: normal Eyes: EOMI, TAYLOR ENT: mucus membranes dry Neck: supple, non-tender Respiratory: CTA, breath sounds present Cardiovascular: RRR, pulses symmetrical Abdomen: non-tender, soft Bowel Sounds: present Musculoskeletal: normal, strength/ROM intact Neuro: normal, sensory motor intact, A&Ox3 GCS: 15 Triage Information Reviewed: Yes Vital Signs On Initial Exam: Initial Vitals Temp Pulse Resp BP Pulse Ox 98.7 F 95 23 143/89 97 04/25/18 22:35 04/25/18 22:35 04/25/18 22:35 04/25/18 22:35 04/25/18 22:35 Vital Signs Reviewed: Yes Diagnostics - Vital Signs Vital Signs Temp Pulse Resp BP Pulse Ox 04/25/18 22:35 98.7 F 95 23 143/89 97 - Laboratory Result Diagrams: 04/26/18 03:40 04/26/18 03:39 Lab Statement: Any lab studies that have been ordered have been reviewed, and results considered in the medical decision making process. - Radiology CXR Xray Interpretation: No Acute Changes - No acute disease. Pending official radiology report. Radiology Interpretation Completed By: ED Physician - CT Brain CT CT Interpretation: Positive (See Comments) - 1. No traumatic intracranial abnormalities. 2. Age-related atrophy and mild chronic small vessel ischemic disease. ED physician reviewed radiology report. CT Interpretation Completed By: Radiologist - Ultrasound No standard instances Ultrasound Interpretation: Positive (See Comments) - Gallbladder US: 1. Mild right hydronephrosis. 2. Small simple hepatic cyst. ED physician reviewed radiology report. Ultrasound Interpretation Completed By: Radiologist - EKG 22:40 Cardiac Rate: NL - 93 bpm EKG Rhythm: Sinus Rhythm ST Segment: Normal EKG Interpretation: Nl axis, nl interval Altered Mental Statu Course/Dx - Course Course Of Treatment: History limited from patient but she is said to have been on the floor since Wednesday. She has pressure sores on her knees, elbows. CPK is grossly elevated and she was given several liters of fluid here. She also has evidence for UTI and was given Rocephin. Discussed the case with the hospitalist will admit for further. Renal function is normal present. - Diagnoses Differential Diagnosis/HQI/PQRI: Injury, Intoxication, Intracranial Bleed, Medication Reaction, Metabolic Disorder, Sepsis, Seizure, Other - Rhabdomyolysis , infection, intracranial hemorrhage, intoxication, injury from fall Provider Diagnoses: Fall, Elevated LFTs, Rhabdomyolysis, UTI (urinary tract infection) - Provider Notifications Discussed Care Of Patient With: Cheryl Morrissey Time Discussed With Above Provider: 00:00 Instructed by Provider To: Admit As Inpatient - Critical Care Time Critical Care Time: 30-74 min - Critical care time is exclusive of separately billable procedures Discharge - Sign-Out/Discharge Documenting (check all that apply): Patient Departure - Admit - Discharge Plan Condition: Stable Disposition: ADMITTED TO [facility] - Billing Disposition and Condition Condition: STABLE Disposition: Admitted to [facility] - Attestation Statements Document Initiated by Scribe: Yes Documenting Scribe: Kayleen Wei Provider For Whom Scribe is Documenting (Include Credential): Bulmaro Wharton MD Scribe Attestation: Kayleen Gutierrez, scribed for Bulmaro Wharton MD on 04/26/18 at 0707. Scribe Documentation Reviewed: Yes Provider Attestation: The documentation as recorded by the bernabeibKayleen wu accurately reflects the service I personally performed and the decisions made by Bulmaro rendon MD
[2018-04-25 22:55] LABS: ABS Basophils 0 10^3/ul (0-0.2); ABS Eosinophils 0 10^3/ul (0-0.6); ABS Lymphocytes 1.3 10^3/ul (1.0-4.8); ABS Monocytes 1.1 10^3/ul (0-0.8); ABS Neutrophils 11.1 10^3/ul (1.5-7.7); ABS Nucleated RBC 0 10^3/ul; Eosinophil % 0.1 % (0-6); Hematocrit 37 % (35-47); Hemoglobin 12.6 g/dl (12.0-16.0); Lymphocyte % 9.6 % (25-47); Mean Corpuscular HGB Conc 34 g/dl (31-36); Mean Corpuscular Hemoglobin 30 pg (27-31); Mean Corpuscular Volume 89 fL (80-97); Mean Platelet Volume 8.5 um3 (7.4-10.4); Nucleated Red Blood Cells % 0; Platelet Count 260 10^3/ul (150-450); Red Cell Distribution Width 15 % (10.5-15); White Blood Count 13.4 10^3/ul (3.5-10.8)
[2018-04-25 23:20] LABS: EGFR Non-African American 47.3 (>60)
--- NOTE | 2018-04-25 23:52 | RAD ---
EXAM: CT Head Without Intravenous Contrast CLINICAL HISTORY: 72 years old, female; Pain; Prior surgery; Additional info: Weak, fall TECHNIQUE: Axial computed tomography images of the head/brain without intravenous contrast. All CT scans at this facility use at least one of these dose optimization techniques: automated exposure control; mA and/or kV adjustment per patient size (includes targeted exams where dose is matched to clinical indication); or iterative reconstruction. COMPARISON: No relevant prior studies available. FINDINGS: Brain: Mild periventricular and subcortical low attenuation without adjacent mass effect. No acute ischemic changes, extra axial fluid collections, intraparenchymal hemorrhage, or midline shift. Ventricles: The ventricles and extraventricular CSF spaces are widened although symmetrically positioned along the midline. Bones/joints: No acute fracture. No suspicious osseous lesions. Soft tissues: Normal. Sinuses: Normal as visualized. Mastoid air cells: Normal as visualized. No mastoid effusion. IMPRESSION: 1. No traumatic intracranial abnormalities. 2. Age-related atrophy and mild chronic small vessel ischemic disease.
--- NOTE | 2018-04-26 00:18 | RAD ---
EXAM: US Abdomen Limited, Right Upper Quadrant CLINICAL HISTORY: 72 years old, female; Signs and symptoms; Other: Lft's; Additional info: Elevated lfts TECHNIQUE: Real-time ultrasound of the right upper quadrant with image documentation. COMPARISON: No relevant prior studies available. FINDINGS: Liver: Simple cyst posterior inferior left hepatic lobe measures 1.4 x 0.9 x 0.8 cm. Normal liver echogenicity and size. Normal hepato-pedal portal vein flow. No intrahepatic bile duct dilation. Gallbladder: No gallstones, wall thickening, pericholecystic fluid, or sonographic Valenzuela's sign. Common bile duct: CBD measures 0.3 cm. Pancreas: Pancreatic head and body are visualized showing no ductal dilation or focal lesions. Tail is shadowed by overlying bowel gas. Right kidney: Right kidney measures 11 x 5.2 x 5.0 cm (149 cc). Mild pelvocaliectasis. No calculi or solid cortical lesions. Aorta: Non-atherosclerotic normal caliber aorta. Inferior vena cava: Patent IVC. IMPRESSION: 1. Mild right hydronephrosis. 2. Small simple hepatic cyst.
[2018-04-26] MEDS ORDERED: Senna TAB PO PRN (01:14)
[2018-04-26] MEDS ORDERED: oxyCODONE/Acetamin 5/325 MG* TAB PO PRN (01:14)
[2018-04-26] MEDS ORDERED: Al Hydrox/Mg Hydrox/Simet LIQ* 30 ML UDC PO PRN (01:14)
[2018-04-26] MEDS ORDERED: Docusate CAP* 100 MG PO PRN (01:14)
[2018-04-26] MEDS ORDERED: Ondansetron INJ* 2 MG/ML VIAL IV PRN (01:14)
[2018-04-26] MEDS ORDERED: Aspirin TAB* 325 MG PO ONE (01:20)
[2018-04-26] MEDS ORDERED: Potassium Chlor TAB* 20 MEQ TAB.ER PO ONE (01:21)
[2018-04-26 01:52] LABS: Urine Appearance Cloudy; Urine Blood 3+ (Negative); Urine Color Yellow; Urine Ketones Trace (Negative); Urine Protein 2+(100 mg/dL) (Negative); Urine Red Blood Cell 3+(>10/hpf) (Absent); Urine Specific Gravity 1.016 (1.010-1.030); Urine Urobilinogen Negative (Negative); Urine White Blood Cell 3+(>20/hpf) (Absent)
[2018-04-26] MEDS ORDERED: cefTRIAXone(*) 1 GM in NS 0.9% 50 ML* 50 ML IVPB ONE (01:56)
[2018-04-26] MEDS: NS 0.9% 1000 ML* 1,000 ML IV SCH ×3 (02:49→18:36)
[2018-04-26 03:47] LABS: ABS Basophils 0.1 10^3/ul (0-0.2); ABS Eosinophils 0 10^3/ul (0-0.6); ABS Lymphocytes 1.4 10^3/ul (1.0-4.8); ABS Monocytes 0.8 10^3/ul (0-0.8); ABS Neutrophils 8.9 10^3/ul (1.5-7.7); ABS Nucleated RBC 0 10^3/ul; Eosinophil % 0.1 % (0-6); Hematocrit 37 % (35-47); Hemoglobin 12.4 g/dl (12.0-16.0); Lymphocyte % 12.5 % (25-47); Mean Corpuscular HGB Conc 34 g/dl (31-36); Mean Corpuscular Hemoglobin 30 pg (27-31); Mean Corpuscular Volume 89 fL (80-97); Mean Platelet Volume 8.2 um3 (7.4-10.4); Nucleated Red Blood Cells % 0; Platelet Count 253 10^3/ul (150-450); Red Blood Count 4.14 10^6/ul (4.00-5.40); Red Cell Distribution Width 14 % (10.5-15); White Blood Count 11.1 10^3/ul (3.5-10.8)
[2018-04-26 04:14] LABS: EGFR Non-African American 55.8 (>60)
[2018-04-26] MEDS: Heparin VIAL(*) 5000 UNITS/ML VIAL (FIVE THOUSAND) SUBCUT SCH ×2 (05:19→14:21)
--- NOTE | 2018-04-26 06:54 | HP ---
CC: Laurie Paz MD * HISTORY AND PHYSICAL: DATE OF ADMISSION: 04/26/18 TIME OF EVALUATION: 0100. PRIMARY CARE PHYSICIAN: Laurie Paz MD CHIEF COMPLAINT: Fall and altered mental status. HISTORY OF PRESENT ILLNESS: This is a 72-year-old female with a past medical history of rheumatoid arthritis on immunosuppressives, who presents to the emergency room after having a fall. The patient does not have a clear recollection of the events that transpired. Her son is at the bedside. The patient states Wednesday, she remembers construction folk coming and moving things outside her home. This was on the . She does not remember much more after that. It is all bits and pieces. She does not know why she did not call her son earlier. She states she fell. She does not know how she fell. She was not able to get up. She was last seen well on the . She called her [id number] today stating that she fell and asked for them to come over to help her get up. When they went over there, the patient was covered in stool and urine. She was confused with word finding difficulty and she was brought to the emergency room for further evaluation. The patient states she is sore all over, no focal pain. She still does not recall the events and how they transpired. She admits to having some word finding difficulty. She has a diffuse headache. No vision changes. No numbness or tingling. No focal weakness. This has never happened to her before in the past. No chest pain. No shortness of breath. No nausea, vomiting. She states she did have several episodes of diarrhea today. No shortness of breath. No chest pain. She also had an episode of urinary incontinence as well. She states she had a urinary tract infection over the summer that she was on antibiotics for. She still has issues with urinary frequency since then and has been planning to go to a urologist. Otherwise, remaining review of systems is negative. In the emergency room, the patient had labs, imaging, she was given 2 L of fluid, and referred to the hospitalist service for further evaluation. PAST MEDICAL HISTORY: 1. Rheumatoid arthritis on immunosuppressives. 2. Osteoarthritis. 2. GERD. 4. History of right total knee replacement. MEDICATIONS: 1. Multivitamin daily in the morning. 2. PreserVision AREDS 2 one cap daily in the morning. 3. Methotrexate 17.5 mg p.o. weekly. 4. Magnesium 250 mg daily. 5. Folic acid daily. 6. Calcium carbonate with vitamin D3 one tab daily. 7. Biotin 10,000 mcg daily in the morning. 8. Adalimumab 40 mg IM every 3 weeks, unclear if the patient is still on this. Recommend med rec followup. ALLERGIES: PENICILLIN. FAMILY HISTORY: Mother at the age of 103 from old age. Father in his 70s from an [facility]. SOCIAL HISTORY: The patient lives at home alone. She is normally independent of her ADLs. She quit smoking 10 years ago, was a 18-eamv-adiz history. No alcohol use or illicit drug use. She has 2 grandchildren. Her son, Kit Juarez is her healthcare proxy. Code status, full code. REVIEW OF SYSTEMS: A 14-point review of systems is as mentioned in the HPI, otherwise negative. PHYSICAL EXAMINATION GENERAL: No acute distress, resting comfortably with her son at the bedside. VITAL SIGNS: Temp 98.7, pulse rate 92, respiratory rate 24, oxygen saturation 98 % on room air, blood pressure 122/87. HEENT: Head: Normocephalic. Pupils are equal, reactive. Anicteric. Oropharynx: Mucous membranes are dry. NECK: Supple. No lymphadenopathy. RESPIRATORY: Diminished breath sounds. No wheezing, rhonchi, or rales. CARDIAC: Regular rate and rhythm. Systolic murmur most prominent at the left sternal base. ABDOMEN: Positive bowel sounds. Soft. Diffuse tenderness. No rebound, no guarding. No focal tenderness. EXTREMITIES: +1 pretibial edema. +1 DPs. NEUROLOGIC: She is alert and oriented x3. She does have word finding difficulty. Negative pronator drift. Upper and lower muscle strength is equal and symmetric. Cranial nerves II through XII intact. She does have difficulty with [id number] more pronounced in her left lower extremity. DERM: She has skin breakdown in her elbows and her knees with abrasions. No secondary infection noted. LABORATORY DATA: White count 13.4, hemoglobin 12.6, hematocrit 37, platelets 260. Sodium 137, potassium 3.4, chloride 101, bicarb 25, BUN 30, creatinine 1.13 , glucose 115. AST 495, ALT 252. Total CK is 22,575. Troponin is pending. RADIOGRAPHIC DATA: EKG shows normal sinus rhythm, QTc of 467, no significant changes. Head CT shows no traumatic intracranial abnormalities, age-related atrophy and mild chronic small vessel ischemic disease. Chest x-ray has some mild prominent interstitial markings. Gallbladder ultrasound, mild right hydronephrosis, small simple hepatic cyst. ASSESSMENT: This is a 72-year-old female with past medical history of rheumatoid arthritis on immunosuppressives who presents to the emergency room after having a fall, unable to get up, found down and covered in stool and urine , last seen well on the . 1. Fall with altered mental status. Assessment: Concerned that the patient may have suffered a stroke. She does have some word finding difficulty and some difficulty with her lower extremities. It is also possible that the patient had a seizure or some cardiac event as well. Plan: We will admit her to telemetry, order an MRI, echo, and EEG. We will give her a full-dose aspirin and a baby aspirin to follow. We will order swallow evaluation, PT/OT and consider Neurology consultation depending on results. We will check a lipid panel in the morning as well. 2. Elevated transaminases. It is unclear the etiology behind this. Could be shock liver if she was hypotensive after being dry and found down for several days. Plan: We will repeat her labs. We will check an ammonia level, add further workup if they continue to rise. We will also check an alcohol level. 3. Rhabdomyolysis. Assessment: The patient with a CK of 22,000 in the setting of being on the ground for several days with a bump in her renal function. Plan: We will aggressively hydrate her, renally dose her meds, and repeat her CK in the morning. 4. History of urinary tract infection. The patient has a history of urinary frequency and recent urinary tract infection. The patient was bladder scan, having greater than 500 cc, could be related to a neurologic process. Plan: We will place a Guillen, follow up on her UA, treat accordingly. 5. Chronic medical problems. We will obtain an accurate med rec and order as indicated. We will hold her immunosuppressants in the setting of acute illness. 6. FEN. Bedside swallow. If she passes her bedside swallow, then we will allow for a heart-healthy diet with aggressive IV fluids. 7. DVT prophylaxis. The patient scores high risk. We will place her on heparin subcu t.i.d. 8. Code status. Full code. PATIENT TIME: Greater than 60 minutes were spent during the history and physical, more than half the time spent in direct patient contact. [id number]/[facility] #: [id number] GELA
--- NOTE | 2018-04-26 08:18 | RAD ---
INDICATION: Weakness. COMPARISON: Comparison is made with a prior chest x-ray study from August 11, 2017. TECHNIQUE: A portable view of the chest was obtained. FINDINGS: Cardiac and mediastinal contours appear to be within normal limits. The lungs are clear. No pleural effusion is seen. IMPRESSION: NO EVIDENCE FOR ACUTE DISEASE. R0
[2018-04-26] MEDS: Folic Acid TAB* 1 MG PO SCH (08:54)
[2018-04-26] MEDS: Aspirin 81 mg CHEW TAB* 81 MG TAB.CHEW PO SCH (08:54)
[2018-04-26 09:25] LABS: Urine Appearance Turbid; Urine Blood 2+ (Negative); Urine Color Amber; Urine Ketones 1+ (Negative); Urine Protein 2+(100 mg/dL) (Negative); Urine Red Blood Cell 3+(>10/hpf) (Absent); Urine Specific Gravity 1.016 (1.010-1.030); Urine Urobilinogen Negative (Negative); Urine White Blood Cell 3+(>20/hpf) (Absent)
--- NOTE | 2018-04-26 11:38 | RAD ---
HISTORY: altered mental status COMPARISONS: July 17, 2005 TECHNIQUE: The following sequences were obtained of the head: Sagittal T1-weighted images, axial T2-weighted images, axial FLAIR images, axial susceptibility weighted images, axial T1-weighted images. Additionally, axial diffusion-weighted images were obtained with calculated apparent diffusion coefficients. FINDINGS: HEMORRHAGE/INFARCT: There is no hemorrhage or acute infarct. MASSES/SHIFT: There is no mass or shift. EXTRA-AXIAL SPACES/MENINGES: There are no extra-axial fluid collections. SULCI AND VENTRICLES: There is mild diffuse and proportional enlargement of the sulci and ventricles. CEREBRUM: There are no focal parenchymal abnormalities. BRAINSTEM: There are no focal parenchymal abnormalities. CEREBELLUM: There are no focal parenchymal abnormalities. The cerebellar tonsils are normal in size and position. SELLA: The sella is normal. PINEAL: The pineal region is clear. CP ANGLE/TEMPORAL BONES: The labyrinthine structures are grossly normal. A cystic lesion noted in the left internal auditory canal on the 2009 examination is not visualized on the current termination, likely secondary to differences in technique. VESSELS: Normal flow-voids are noted within the visualized vertebral vasculature. DIFFUSION ABNORMALITIES: There are no diffusion abnormalities. PARANASAL SINUSES/MASTOIDS: The paranasal sinuses are clear. ORBITS: The orbits are unremarkable. BONES AND SOFT TISSUE: No bone or soft tissue abnormalities are noted. OTHER: None IMPRESSION: DIFFUSE INVOLUTIONAL CHANGE. OTHERWISE UNREMARKABLE MRI OF THE BRAIN.
[2018-04-26] MEDS ORDERED: Potassium Chloride LIQUID* 20 MEQ PACKET PO ONE (12:23)
--- NOTE | 2018-04-26 12:27 | PN ---
Hospitalist Progress Note Date of Service: 04/26/18 I have seen and examined Ms. Juarez. Her son Kit is at the bedside. She feels fine this morning and has no complaints. She denies headache, fevers/ chills, nausea, confusion, chest pain, shortness of breath, muscle aches. She still does not recall much of the past few days except that she was supposed to get her hair done on Wednesday morning and never got there. Her son thinks she is pretty much back to her baseline, but still a little groggy. He emphasizes how unusual this was for her--she is completely independent, lives alone, pays her bills, is very active with her [employer], cooks, etc. Her night was uneventful, her vitals have been stable, and her labs this morning are significant only for a positive UA on a repeat. Her CK is improving. I discussed the possibilities with her and her son, including encephalopathy from a UTI having caused her fall and rhabdo, vs. a primary neurologic event, a cardiac event, etc. A MRI and EEG are pending. Needs PT eval and continued ivf.
--- NOTE | 2018-04-26 16:13 | ECHO ---
Patient: TOMMY ANGULO [facility] Rec#: [id number] : 1945 Date: 04/26/2018 Age: 72y Height: 173 cm / 68.1 in Weight: 95.25 kg / 209.9 lbs Sex: F BSA: 2.09 Room#: [facility] Admit Date#: 04/26/2018 Type: Inpatient Referring: Terri Christian MD Reading: Sea Mueller MD Booth Operator: Mary Carmen Larios RDCS CC: FlandreauLaurie Transthoracic Echocardiogram Indication: CVA BP: 144/90 HR: 87 Rhythm: NSR Findings History: RA on immunosuppressive therapy, systolic murmur, former smoker. Technical Comments: The study quality is fair. Completed at 1430. Left Ventricle: The left ventricular chamber size is normal. Mild to moderate concentric left ventricular hypertrophy is observed. Global left ventricular wall motion and contractility are within normal limits. There is normal left ventricular systolic function. The estimated ejection fraction is 55-60%. Abnormal left ventricular diastolic function is observed. Abnormal left ventricular diastolic filling is observed, consistent with impaired relaxation. Left Atrium: The left atrium is mildly dilated. Right Ventricle: Moderator Band present. The right ventricular cavity size is normal. The right ventricular global systolic function is normal. Right Atrium: The right atrium is mildly dilated. Interatrial septum appears intact without evidence of shunting. The bubble study is negative. A patent foramen ovale is not demonstrated with color Doppler and agitated contrast. Aortic Valve: The aortic valve is trileaflet. Mild aortic leaflet calcification is visualized. Systolic excursion of the aortic valve cusps is reduced. There is a trace of aortic regurgitation. There is mild aortic stenosis. The mean gradient of the aortic valve is 9 mmHg. The peak instantaneous gradient of the aortic valve is 18 mmHg. The aortic valve area, by peak velocities, is calculated at 1.6 cm2. The aortic valve area, by VTI's, is calculated at 1.8 cm2. Mitral Valve: The mitral valve leaflets are mildly thickened. There is trace to mild mitral regurgitation. There is no evidence of mitral stenosis. Tricuspid Valve: The tricuspid valve leaflets are normal. There is trace to mild tricuspid regurgitation. The right ventricular systolic pressure is estimated at 24 mmHg. No pulmonary hypertension is noted. There is no tricuspid stenosis. Pulmonic Valve: The pulmonic valve appears normal. There is a trace pulmonic regurgitation. There is no pulmonic stenosis. Pericardium: There is no significant pericardial effusion. A pericardial fat pad is visualized. Aorta: There is no dilatation of the ascending aorta. There is no dilatation of the aortic arch. The aortic root is normal in size. Pulmonary Artery: The main pulmonary artery is not well visualized. Venous: The inferior vena cava appears normal in size. There is a greater than 50% respiratory change in the inferior vena cava dimension. Contrast: Normal saline was used as contrast for the bubble study. Images 88 and 89. Intravenous contrast was used to help determine presence of intracardiac shunting. Summary: There was not any prior study for comparison. Conclusions Mild to moderate concentric left ventricular hypertrophy is observed. Global left ventricular wall motion and contractility are within normal limits. There is normal left ventricular systolic function. The estimated ejection fraction is 55-60%. The right ventricular global systolic function is normal. A patent foramen ovale is not demonstrated with color Doppler and agitated contrast. Systolic excursion of the aortic valve cusps is reduced. There is mild aortic stenosis. The mean gradient of the aortic valve is 9 mmHg. There is trace to mild mitral regurgitation. There is trace to mild tricuspid regurgitation. No pulmonary hypertension is noted. There is no significant pericardial effusion. Measurements Name Value Normal Range RVIDd (AP) 2D 3.2 cm (0.9 - 2.6) RVDdMajor (2D) 4 cm (2.2 - 4.4) RAd ISD 4CH 5.4 cm (3.4 - 4.9) RA (A4C)W 3.7 cm (2.9 - 4.6) IVSd (2D) 1.3 cm (0.6 - 1) LVPWd (2D) 1.2 cm (0.6 - 1) LVIDd (2D) 4.1 cm (3.6 - 5.4) LVIDs (2D) 2.3 cm - LV FS (2D) 43 % (25 - 45) Aortic Annulus 1.7 cm (1.4 - 2.6) Ao root diameter (2D) 3.2 cm (2.1 - 3.5) Ascending Ao 3.3 cm (2.1 - 3.4) Aortic arch 2.8 cm (1.8 - 3.4) LA dimension (AP) 2D 4.3 cm (2.3 - 3.8) LAd ISD 4CH 5.5 cm (2.9 - 5.3) LA ISD 4CH W 3.9 cm (2.5 - 4.5) Name Value Normal Range LA ESV BP (A/L) index 33 ml/m2 - Name Value Normal Range MV E-wave Vmax 0.7 m/sec - MV deceleration time 201 msec - MV A-wave Vmax 0.9 m/sec - MV E:A ratio 0.8 ratio - LV septal e' Vmax 0.05 m/sec - LV lateral e' Vmax 0.09 m/sec - LV E:e' septal ratio 14 ratio - LV E:e' lateral ratio 7.78 ratio - Name Value Normal Range AV Vmax 2.1 m/sec - AV VTI 42.9 cm - AV peak gradient 18 mmHg - AV mean gradient 9 mmHg - LVOT diameter 2 cm - LVOT Vmax 1.1 m/sec - LVOT VTI 24.6 cm - LVOT peak gradient 5 mmHg - LVOT mean gradient 3 mmHg - DOI (VTI) 0.57 ratio - NICK (continuity Vmax) 1.6 cm2 - NICK (continuity VTI) 1.8 cm2 - WM Vmax 0.6 m/sec - Name Value Normal Range TR Vmax 2.3 m/sec - TR peak gradient 21 mmHg - RAP 3 mmHg - RVSP 24 mmHg - IVC diameter 2 cm - Name Value Normal Range PV Vmax 1.1 m/sec - PV peak gradient 5 mmHg -
[2018-04-27] MEDS: Heparin VIAL(*) 5000 UNITS/ML VIAL (FIVE THOUSAND) SUBCUT SCH ×4 (00:07→22:10)
[2018-04-27] MEDS: NS 0.9% 1000 ML* 1,000 ML IV SCH (01:29)
--- NOTE | 2018-04-27 03:55 | EEG ---
ELECTROENCEPHALOGRAPHY: DATE OF SERVICE: 04/26/18 DATE READ: 04/26/18 DURATION OF THE [id number]. ORDERING PHYSICIAN: Cheryl Morrissey MD MEDICATIONS: 1. Aspirin. 2. Heparin. 3. Tylenol. 4. Maalox. 5. Colace. 6. Zofran. 7. Percocet. 8. Senokot. CLINICAL PROBLEM: Ms. Yen Juarez is a 72-year-old right-handed female who was found on the ground. She was hospitalized for a UTI. The patient had an episode where she had word finding difficulty and headache. She had reported amnesia. This EEG was obtained to evaluate for epileptiform discharges or electrographic seizures. CLINICAL STATE: Awake and sleep. REPORT: The waking background showed appropriate organization with clear defined anterior-posterior voltage gradient and normal frequency. There was a well-defined posterior dominant rhythm of 9 Hz that was symmetrical and showed normal reactivity. Anteriorly, there was an expected pattern of lower voltage, irregular, mixed faster frequency. There were no clear epileptiform discharges ; however, there were rare sharply contoured waves seen during drowsiness with a waxing and waning arciform alpha range rhythm in the right frontotemporal region that had a morphology of a wicket rhythm. This is a normal variant. In addition, there were small sharp spikes seen in the right parietal region at P4 , which resembles benign small spike waves, which is also a normal variant. Attenuation of the occipital rhythm accompanied drowsiness. There was symmetrical faster alpha frequency in the central region during drowsiness with sleep spindles and K complexes seen throughout the recording, which suggests stage 2 sleep. CLINICAL IMPRESSION: This is an essentially normal awake and sleep EEG with a nonspecific sharply contoured waves in the right parietal and temporal region during drowsiness that resemble small sharp spikes and wicket waves, which are normal variants. There were no clear epileptiform discharges or electrographic seizures. If seizures are highly on the differential, I recommend repeating a longer recording to capture more of the drowsy and sleep state. [id number]/[facility] #: [id number] [facility] HOSPITALCarli
[2018-04-27] MEDS: cefTRIAXone(*) 1 GM in NS 0.9% 50 ML* 50 ML IVPB SCH (05:47)
[2018-04-27 06:37] LABS: ABS Basophils 0 10^3/ul (0-0.2); ABS Eosinophils 0.1 10^3/ul (0-0.6); ABS Lymphocytes 1.6 10^3/ul (1.0-4.8); ABS Monocytes 0.6 10^3/ul (0-0.8); ABS Neutrophils 3.5 10^3/ul (1.5-7.7); ABS Nucleated RBC 0 10^3/ul; Eosinophil % 1.9 % (0-6); Hematocrit 32 % (35-47); Hemoglobin 10.7 g/dl (12.0-16.0); Lymphocyte % 27.2 % (25-47); Mean Corpuscular HGB Conc 34 g/dl (31-36); Mean Corpuscular Hemoglobin 30 pg (27-31); Mean Corpuscular Volume 89 fL (80-97); Nucleated Red Blood Cells % 0.1; Platelet Count 241 10^3/ul (150-450); Red Blood Count 3.55 10^6/ul (4.00-5.40); Red Cell Distribution Width 15 % (10.5-15); White Blood Count 5.8 10^3/ul (3.5-10.8)
[2018-04-27 06:57] LABS: EGFR Non-African American 66.6 (>60)
[2018-04-27] MEDS: Aspirin 81 mg CHEW TAB* 81 MG TAB.CHEW PO SCH (10:32)
[2018-04-27] MEDS: Bacitracin OINTMENT* 0.5% 0.5 oz TUBE TOPICAL SCH (10:32)
[2018-04-27] MEDS: Folic Acid TAB* 1 MG PO SCH (10:32)
[2018-04-27] MEDS: Acetaminophen TAB* 325 MG PO PRN (11:18)
[2018-04-27] MEDS ORDERED: Potassium Chloride LIQUID* 20 MEQ PACKET PO ONE (13:10)
[2018-04-27] MEDS ORDERED: NS 0.9% 1000 ML* 1,000 ML IV SCH (13:12)
--- NOTE | 2018-04-27 15:09 | PN ---
Subjective Date of Service: 04/27/18 Interval History: Patient is feeling better. Patient denies F/C, N/V abdominal pain, diarrhea, CP , SOB, dizziness, palpitations, or other pain except for soreness in left leg. Patient states that she has been having intermittent dysuria symptoms and urgency over the last 4 months since she was treated for a UTI in January. Patient has regained no memory from when she was down. Patient denies any episodes like this before. Patient denies any significant emotional events before she started to lose her memory. Patient's son states that she had 2 notes that were written during the time she has no memory which have significantly different hand-writing. Family History: Unchanged from Admission Social History: Unchanged from Admission Past Medical History: Unchanged from Admission Objective Active Medications: Acetaminophen (Tylenol Tab*) 650 mg PO Q4H PRN PRN Reason: FEVER/PAIN Last Admin: 04/27/18 11:18 Dose: 650 mg Al Hydrox/Mg Hydrox/Simethicone (Maalox Plus*) 30 ml PO Q6H PRN PRN Reason: INDIGESTION Aspirin (Aspirin 81 Mg Chew Tab*) 81 mg PO DAILY [facility] Last Admin: 04/27/18 10:32 Dose: 81 mg Bacitracin (Bacitracin Ointment*) 1 applic TOPICAL DAILY [facility] Last Admin: 04/27/18 10:32 Dose: 1 applic Docusate Sodium (Colace Cap*) 100 mg PO BID PRN PRN Reason: CONSTIPATION Folic Acid (Folvite Tab*) 1 mg PO QAM [facility] Last Admin: 04/27/18 10:32 Dose: 1 mg Heparin Sodium (Porcine) (Heparin Vial(*)) 5,000 units SUBCUT Q8HR [facility] Last Admin: 04/27/18 05:45 Dose: 5,000 units Ceftriaxone Sodium 1 gm/ (Sodium Chloride) 50 mls @ 200 mls/hr IVPB 0600 [facility] Last Admin: 04/27/18 05:47 Dose: 200 mls/hr Sodium Chloride (Ns 0.9% 1000 Ml*) 1,000 mls @ 100 mls/hr IV PER RATE [facility] Ondansetron HCl (Zofran Inj*) 4 mg IV Q4H PRN PRN Reason: NAUSEA/VOMITING Oxycodone/Acetaminophen (Percocet 5/325 Tab*) 1 tab PO Q4H PRN PRN Reason: Pain Senna (Senokot Tab*) 1 tab PO BID PRN PRN Reason: CONSTIPATION Vital Signs - 8 hr 04/27/18 04/27/18 04/27/18 07:20 08:20 11:17 Temperature 98.4 F 98.8 F Pulse Rate 81 86 Respiratory 16 16 16 Rate Blood Pressure 123/68 134/69 (mmHg) O2 Sat by Pulse 95 100 Oximetry Oxygen Devices in Use Now: None Appearance: Patient is a 72yo female who appears stated age and is sitting in the bed in NAD. Eyes: No Scleral Icterus, PERRLA Ears/Nose/Mouth/Throat: NL Teeth, Lips, Gums, Clear Oropharnyx, Mucous Membranes Moist Neck: NL Appearance and Movements; NL JVP, Trachea Midline Respiratory: Symmetrical Chest Expansion and Respiratory Effort, Clear to Auscultation Cardiovascular: NL Sounds; No Murmurs; No JVD, RRR, No Edema Abdominal: NL Sounds; No Tenderness; No Distention, No Hepatosplenomegaly Lymphatic: No Cervical Adenopathy Extremities: No Edema, No Clubbing, Cyanosis Skin: No Rash or Ulcers, No Nodules or Sclerosis Neurological: Alert and Oriented x 3, NL Sensation, NL Muscle Strength and Tone , - - CN II-XII intact. Result Diagrams: 04/27/18 06:15 04/27/18 06:15 Microbiology and Other Data: Microbiology 04/26/18 01:15 Urine Culture - Preliminary Urine Escherichia Coli Assess/Plan/Problems-Billing Assessment: Patient is a 72yo female with a PMH for RA who presents after a presumed fall with prolonged downtime with no recollection of her time on the floor or of the fall itself. Patient had rhabdomyolysis that is improving but was found to have a UTI and urinary retention. - Patient Problems (1) UTI (urinary tract infection) Current Visit: Yes Status: Acute Comment: - Likely cause of delirium causing memory loss. - Was diagnosed in January with UTI which was treated but patient has ongoing urinary symptoms - Likely cause of urinary retention. - Guillen catheter in place, will attempt void trial. - US of kidneys and bladder shows large Right UPJ Stone. Urology Consult Pending. (2) Memory loss Current Visit: Yes Status: Acute Comment: - Patient has no memory from a full day while she was on the floor. - No history of memory loss. - Probably due to delirium from UTI - MRI and EEG negative - TGA on differential but unlikely (3) GERD (gastroesophageal reflux disease) Current Visit: No Status: Chronic Code(s): K21.9 - GASTRO-ESOPHAGEAL REFLUX DISEASE WITHOUT ESOPHAGITIS SNOMED Code(s): 676057025 Comment: - Continue PPI (4) Rheumatoid arthritis Current Visit: No Status: Chronic Code(s): M06.9 - RHEUMATOID ARTHRITIS, UNSPECIFIED SNOMED Code(s): 18681023 Comment: - Weekly Methotrexate - Continue folic acid - Low disease activity (5) Rhabdomyolysis Current Visit: Yes Status: Acute Code(s): M62.82 - RHABDOMYOLYSIS SNOMED Code(s): 725577761 Comment: - CPK trending down - Slight ADAMS - Traumatic from prolonged downtime (6) DVT prophylaxis Current Visit: No Status: Acute Code(s): RVA4442 - SNOMED Code(s): 295150480 Comment: - Heparin SubQ (7) Full code status Current Visit: No Status: Acute Code(s): Z78.9 - OTHER SPECIFIED HEALTH STATUS SNOMED Code(s): 144880711 Status and Disposition: Inpatient, likely discharge to [facility] [email or web address]
--- NOTE | 2018-04-27 15:29 | RAD ---
INDICATION: Hydronephrosis urinary tract infection. COMPARISON: Correlation is made with a prior right upper quadrant ultrasound from April 25, 2018. TECHNIQUE: Multiple real-time images of the kidneys and urinary bladder were obtained. FINDINGS: The kidneys are normal in size shape and echogenicity. The right kidney measured 11.6 x 4.9 x 5.7 cm and the left kidney measured 11.7 x 6.2 x 5.2 cm. There is moderate right hydronephrosis which appears to have progressed slightly from the prior study. There is a calculus at the ureteropelvic junction which measures approximately 1.6 cm in size. There is a Guillen catheter within the bladder. This was clamped although the bladder did not fill significantly over a 2 hour period. No bladder wall thickening was noted. The results of this exam were called to the referring clinician. IMPRESSION: MODERATE RIGHT HYDRONEPHROSIS DEMONSTRATING SLIGHT PROGRESSION WHICH IS SECONDARY TO A LARGE CALCULUS AT THE URETEROPELVIC JUNCTION.
[2018-04-27] MEDS ORDERED: Ondansetron TAB* 4 MG PO ONE (19:04)
[2018-04-27] MEDS ORDERED: Buffered Lidocaine 0.9% SYRIN* 5 ML/SYR SYRINGE INTRADERM ONE (19:04)
--- NOTE | 2018-04-27 21:59 | CONS ---
CC: Dr. Laurie Paz * CONSULTATION NOTE: DATE OF CONSULT: 04/27/18. LOCATION: The patient is in room #431. REASON FOR CONSULT: I was asked by the hospitalist service to see this 72-year- old white female with urinary tract infection and an obstructing right renal calculus. HISTORY OF PRESENT ILLNESS: Mrs. Juarez was admitted 2 days ago with disorientation, having found passed out at home. On evaluation in the ER, she was found to have an elevated white count and an elevated C-reactive protein. Her urine was positive for infection and she was noted to have an elevated postvoid residual, had a catheter placed. The patient was worked up for possible stroke or cardiac events. Because of the presence of retention and the urinary tract infection, she had a renal ultrasound. This study showed a 2-cm calculus at the right ureteropelvic junction associated with moderate right hydronephrosis. Her urine culture grew E. coli and the sensitivity is pending. She has been on IV ceftriaxone. Today, she is feeling much better. Her white count is down to 6000. She does not complain of any flank pain. PHYSICAL EXAM: On examination, she is well oriented. She is afebrile. She has no flank tenderness and her abdominal exam is negative. IMPRESSION: Partially obstructing 2 cm calculus at the right ureteropelvic junction associated with urinary tract infection and partial urinary retention. It is possible that an episode of sepsis was the cause of her recent condition. The patient does not look septic at this time and she has no flank tenderness, afebrile, and a normal white count. PLAN/RECOMMENDATIONS: The plan originally was to take her to the operating room this evening for placement of a right ureteral stent. Patient however had full lunch 1:30 p.m. Considering she has no signs of sepsis at this time, the stent placement can wait till the morning. She is scheduled to have a cystoscopy and placement of a right ureteral stent tomorrow morning. This would be in preparation for definitive treatment of the stone at a later date. [id number]/[facility] #: [id number] [facility]
[2018-04-28] MEDS: cefTRIAXone(*) 1 GM in NS 0.9% 50 ML* 50 ML IVPB SCH (05:48)
[2018-04-28] MEDS ORDERED: fentaNYL* 50 MCG/ML 2 ML VIAL (100 MCG VIAL) IV PRN (05:53)
[2018-04-28] MEDS ORDERED: oxyCODONE/Acetamin 5/325 MG* TAB PO PRN (05:53)
[2018-04-28] MEDS ORDERED: PROCHLORPERAZINE INJ 5 MG/ML 2 ML VIAL IV PRN (05:53)
[2018-04-28] MEDS ORDERED: Naloxone* 0.4 MG/ML 1 ML VIAL IV PRN (05:53)
[2018-04-28] MEDS ORDERED: Morphine INJ* 2 MG/ML 1 ML SYRINGE (TWO MG - NEW SYRINGE VERSION) IV PRN (05:53)
[2018-04-28] MEDS ORDERED: DiMENhydriNATE IV* 50 MG/ML VIAL IV PUSH PRN (05:53)
[2018-04-28] MEDS ORDERED: Famotidine IV* 10 MG/ML 2 ML (20 mg) IV ONE (06:00)
[2018-04-28] MEDS ORDERED: Dexamethasone TAB* 4 MG PO ONE (06:00)
[2018-04-28] MEDS ORDERED: Ondansetron ODT TAB* 4 MG ONE (07:10)
[2018-04-28] MEDS ORDERED: Famotidine IV* 10 MG/ML 2 ML (20 mg) ONE (07:10)
[2018-04-28] MEDS ORDERED: Dexamethasone TAB* 4 MG ONE (07:11)
[2018-04-28] MEDS ORDERED: Iohexol 180 (CONTRAST) 10 ML SDV IV ONE (07:12)
[2018-04-28] MEDS ORDERED: Midazolam* 1 MG/ML 2 ML VIAL (2 MG) ONE (07:21)
[2018-04-28 07:46] LABS: ABS Basophils 0 10^3/ul (0-0.2); ABS Eosinophils 0.2 10^3/ul (0-0.6); ABS Lymphocytes 1.4 10^3/ul (1.0-4.8); ABS Monocytes 0.5 10^3/ul (0-0.8); ABS Nucleated RBC 0 10^3/ul; Eosinophil % 2.6 % (0-6); Hematocrit 31 % (35-47); Hemoglobin 10.5 g/dl (12.0-16.0); Lymphocyte % 23.4 % (25-47); Mean Corpuscular HGB Conc 34 g/dl (31-36); Mean Corpuscular Hemoglobin 30 pg (27-31); Mean Corpuscular Volume 90 fL (80-97); Mean Platelet Volume 8.3 um3 (7.4-10.4); Nucleated Red Blood Cells % 0; Platelet Count 264 10^3/ul (150-450); Red Blood Count 3.49 10^6/ul (4.00-5.40); Red Cell Distribution Width 15 % (10.5-15); White Blood Count 6.1 10^3/ul (3.5-10.8)
[2018-04-28] MEDS ORDERED: Chloroprocaine 2%* 20 ML VIAL ONE (08:10)
[2018-04-28 08:13] LABS: EGFR Non-African American 69.5 (>60)
--- NOTE | 2018-04-28 09:30 | RAD ---
CPT II Codes: G9500 INDICATION: Right hydronephrosis. Fluoroscopic services provided for referring physician. 5 seconds of fluoroscopy time was used. 2 spot image demonstrates right hydronephrosis with placement of a right ureteral stent. IMPRESSION: Fluoroscopic services provided for referring physician for right ureteral stent placement.
[2018-04-28] MEDS: Heparin VIAL(*) 5000 UNITS/ML VIAL (FIVE THOUSAND) SUBCUT SCH ×3 (09:59→23:03)
[2018-04-28] MEDS: Bacitracin OINTMENT* 0.5% 0.5 oz TUBE TOPICAL SCH (10:07)
[2018-04-28] MEDS: Folic Acid TAB* 1 MG PO SCH (10:07)
[2018-04-28] MEDS: Aspirin 81 mg CHEW TAB* 81 MG TAB.CHEW PO SCH (10:07)
--- NOTE | 2018-04-28 16:02 | PN ---
Subjective Date of Service: 04/28/18 Interval History: Patient is feeling well today. Guillen catheter removed and voiding. No dysuria. Patient denies F/C, N/V, abdominal pain, CP, SOB, palpitations, dizziness, or other pain. Patient had no complications with stent placement and understands the need for definitive care. Family History: Unchanged from Admission Social History: Unchanged from Admission Past Medical History: Unchanged from Admission Objective Active Medications: Acetaminophen (Tylenol Tab*) 650 mg PO Q4H PRN PRN Reason: FEVER/PAIN Last Admin: 04/27/18 11:18 Dose: 650 mg Al Hydrox/Mg Hydrox/Simethicone (Maalox Plus*) 30 ml PO Q6H PRN PRN Reason: INDIGESTION Aspirin (Aspirin 81 Mg Chew Tab*) 81 mg PO DAILY [facility] Last Admin: 04/28/18 10:07 Dose: 81 mg Bacitracin (Bacitracin Ointment*) 1 applic TOPICAL DAILY [facility] Last Admin: 04/28/18 10:07 Dose: 1 applic Dimenhydrinate (Dramamine Iv*) 12.5 mg IV PUSH ONCE PRN PRN Reason: NAUSEA/VOMITING Stop: 04/28/18 16:00 Docusate Sodium (Colace Cap*) 100 mg PO BID PRN PRN Reason: CONSTIPATION Fentanyl Citrate (Fentanyl*) 25 mcg IV Q5M PRN PRN Reason: PAIN - MODERATE Stop: 04/28/18 16:00 Folic Acid (Folvite Tab*) 1 mg PO QAM [facility] Last Admin: 04/28/18 10:07 Dose: 1 mg Heparin Sodium (Porcine) (Heparin Vial(*)) 5,000 units SUBCUT Q8HR [facility] Last Admin: 04/28/18 14:25 Dose: 5,000 units Ceftriaxone Sodium 1 gm/ (Sodium Chloride) 50 mls @ 200 mls/hr IVPB Q24H [facility] Last Admin: 04/28/18 05:48 Dose: 200 mls/hr Sodium Chloride (Ns 0.9% 1000 Ml*) 1,000 mls @ 100 mls/hr IV PER RATE [facility] Last Admin: 04/28/18 00:25 Dose: 100 mls/hr Lactated Ringer's (Lactated Ringers 1000 Ml Bag*) 1,000 mls @ 125 mls/hr IV PER RATE [facility] Last Admin: 04/28/18 10:14 Dose: 125 mls/hr Morphine Sulfate (Morphine Inj ((Syringe))*) 2 mg IV Q5M PRN PRN Reason: PAIN Stop: 04/28/18 16:00 Naloxone HCl (Narcan*) 0.08 mg IV Q2M PRN PRN Reason: severe induced resp depression Stop: 04/28/18 16:00 Ondansetron HCl (Zofran Inj*) 4 mg IV Q4H PRN PRN Reason: NAUSEA/VOMITING Oxycodone/Acetaminophen (Percocet 5/325 Tab*) 1 tab PO Q4H PRN PRN Reason: Pain Oxycodone/Acetaminophen (Percocet 5/325 Tab*) 1 tab PO ONCE PRN PRN Reason: PAIN - MODERATE Stop: 04/28/18 16:00 Prochlorperazine Edisylate (Compazine Inj*) 2.5 mg IV ONCE PRN PRN Reason: NAUSEA/VOMITING Stop: 04/28/18 16:00 Senna (Senokot Tab*) 1 tab PO BID PRN PRN Reason: CONSTIPATION Vital Signs - 8 hr 04/28/18 04/28/18 04/28/18 08:15 08:17 08:18 Temperature 98.8 F Pulse Rate 78 85 Respiratory 16 Rate Blood Pressure 146/95 (mmHg) O2 Sat by Pulse 90 95 Oximetry 04/28/18 04/28/18 04/28/18 08:20 08:21 08:25 Temperature Pulse Rate 82 80 76 Respiratory 16 16 Rate Blood Pressure 143/84 143/84 148/79 (mmHg) O2 Sat by Pulse 97 96 99 Oximetry 04/28/18 04/28/18 04/28/18 08:26 08:30 08:31 Temperature Pulse Rate 75 80 73 Respiratory Rate Blood Pressure 148/79 150/78 (mmHg) O2 Sat by Pulse 99 94 95 Oximetry 04/28/18 04/28/18 04/28/18 08:35 09:00 09:23 Temperature 98.6 F 98.1 F Pulse Rate 88 84 Respiratory 16 Rate Blood Pressure 147/72 (mmHg) O2 Sat by Pulse 92 98 Oximetry 04/28/18 04/28/18 11:21 15:06 Temperature 98.2 F 97.5 F Pulse Rate 88 92 Respiratory 16 16 Rate Blood Pressure 143/71 130/89 (mmHg) O2 Sat by Pulse 97 99 Oximetry Oxygen Devices in Use Now: None Appearance: Patient is a 72yo female who appears stated age and is sitting in the bed in NAD. Eyes: No Scleral Icterus, PERRLA Ears/Nose/Mouth/Throat: NL Teeth, Lips, Gums, Clear Oropharnyx, Mucous Membranes Moist Neck: NL Appearance and Movements; NL JVP, Trachea Midline Respiratory: Symmetrical Chest Expansion and Respiratory Effort, Clear to Auscultation Cardiovascular: NL Sounds; No Murmurs; No JVD, RRR, No Edema Abdominal: NL Sounds; No Tenderness; No Distention, No Hepatosplenomegaly Lymphatic: No Cervical Adenopathy Extremities: No Edema, No Clubbing, Cyanosis Skin: No Rash or Ulcers, No Nodules or Sclerosis Neurological: Alert and Oriented x 3, NL Sensation, NL Muscle Strength and Tone , - - CN II-XII intact. Result Diagrams: 04/28/18 06:19 04/28/18 06:19 Microbiology and Other Data: Microbiology 04/26/18 01:15 Urine Culture - Preliminary Urine Escherichia Coli Assess/Plan/Problems-Billing Assessment: Patient is a 72yo female with a PMH for RA who presents after a presumed fall with prolonged downtime with no recollection of her time on the floor or of the fall itself. Patient had rhabdomyolysis that is improving but was found to have a UTI and urinary retention. - Patient Problems (1) UTI (urinary tract infection) Current Visit: Yes Status: Acute Comment: - Likely cause of delirium causing memory loss. - Was diagnosed in January with UTI which was treated but patient has ongoing urinary symptoms - Likely cause of urinary retention. - Guillen catheter removed with urology with void and no residual - US of kidneys and bladder shows large Right UPJ Stone. - S/P Stent placement. Will need F/U with definitive treatment. - Will need prolonged antibiotics due to stone likely being infected. (2) Memory loss Current Visit: Yes Status: Acute Comment: - Patient has no memory from a full day while she was on the floor. - No history of memory loss. - Probably due to delirium from UTI - MRI and EEG negative - TGA on differential but unlikely (3) GERD (gastroesophageal reflux disease) Current Visit: No Status: Chronic Code(s): K21.9 - GASTRO-ESOPHAGEAL REFLUX DISEASE WITHOUT ESOPHAGITIS SNOMED Code(s): 471444932 Comment: - Continue PPI (4) Rheumatoid arthritis Current Visit: No Status: Chronic Code(s): M06.9 - RHEUMATOID ARTHRITIS, UNSPECIFIED SNOMED Code(s): 44259418 Comment: - Weekly Methotrexate - Continue folic acid - Low disease activity (5) Rhabdomyolysis Current Visit: Yes Status: Acute Code(s): M62.82 - RHABDOMYOLYSIS SNOMED Code(s): 837096572 Comment: - CPK trending down - Slight ADAMS - Traumatic from prolonged downtime - Continue fluids to discharge. (6) DVT prophylaxis Current Visit: No Status: Acute Code(s): UJL6041 - SNOMED Code(s): 935973008 Comment: - Heparin SubQ (7) Full code status Current Visit: No Status: Acute Code(s): Z78.9 - OTHER SPECIFIED HEALTH STATUS SNOMED Code(s): 747866978 Status and Disposition: Inpatient, likely discharge to [facility].
[2018-04-28] MEDS: Acetaminophen TAB* 325 MG PO PRN (23:01)
--- NOTE | 2018-04-29 03:59 | OP ---
DATE OF OPERATION: 04/28/18 - ROOM #338 DATE OF : 45 SURGEON: Benjamín Washington MD ANESTHESIOLOGIST: Dr. Michael Pastrana. ANESTHESIA: Spinal. PRE-OP DIAGNOSES: 1. Right pyelonephritis. 2. 2 cm obstructing calculus at right ureteropelvic junction. POST-OP DIAGNOSES: 1. Right pyelonephritis. 2. 2 cm obstructing calculus at right ureteropelvic junction. OPERATIVE PROCEDURE: 1. Cystoscopy. 2. Right retrograde pyelography. 3. Placement of right ureteral stent (6-Nicaraguan). INDICATION FOR PROCEDURE: Ms. Juarez is a 72-year-old white female who was admitted two days ago with disorientation, elevated white count, elevated C- reactive protein. On workup with a renal ultrasound, she was noted to have a 1.5-2 cm obstructing calculus at the right ureteropelvic junction associated with moderate right hydronephrosis. Because of the above findings and the suspected acute pyelonephritis, the patient is taken to the operating room for right ureteral stent placement. PATHOLOGY AT CYSTOSCOPY: The bladder mucosa looked hyperemic secondary to either cystitis or catheter reaction. On fluoroscopy, there was a 1.5 cm radiopaque calculus noted in the area of the right ureteropelvic junction . Upon right retrograde pyelography, moderate degree of right hydronephrosis was noted with an obstructing calculus at the UPJ. The urine from the right kidney was moderately cloudy. DESCRIPTION OF PROCEDURE: After successful spinal anesthesia, the patient was placed in the lithotomy position and was prepped and draped for cystoscopy. Cystoscopy was performed. The bladder was carefully inspected and the above findings were noted. A hybrid wire was introduced into the right orifice and positioned in the area of the renal pelvis. A size 5-Nicaraguan open-ended catheter was fed on top of the guidewire and positioned in the renal pelvis. Right retrograde pyelography was performed. A size 6-Nicaraguan stent was then placed with the proximal end coiling in the renal pelvis and the distal end coiling inside the bladder. There was prompted drainage of contrast from the kidney and no extravasation. The cystoscope was removed. A 16-Nicaraguan Guillen catheter was placed. The patient tolerated the procedure well and left the operating room in good condition. The plan is to evaluate the patient following her discharge. When she is fully recovered, she will be a candidate for shockwave lithotripsy of the right renal calculus. [id number]/[facility] #: [id number] MTDD
[2018-04-29] MEDS: cefTRIAXone(*) 1 GM in NS 0.9% 50 ML* 50 ML IVPB SCH (06:01)
[2018-04-29] MEDS: Heparin VIAL(*) 5000 UNITS/ML VIAL (FIVE THOUSAND) SUBCUT SCH (06:04)
[2018-04-29 08:29] LABS: ABS Basophils 0 10^3/ul (0-0.2); ABS Eosinophils 0.1 10^3/ul (0-0.6); ABS Lymphocytes 1.8 10^3/ul (1.0-4.8); ABS Monocytes 0.7 10^3/ul (0-0.8); ABS Neutrophils 6.8 10^3/ul (1.5-7.7); ABS Nucleated RBC 0 10^3/ul; Eosinophil % 0.8 % (0-6); Hematocrit 31 % (35-47); Hemoglobin 10.4 g/dl (12.0-16.0); Lymphocyte % 19.1 % (25-47); Mean Corpuscular HGB Conc 33 g/dl (31-36); Mean Corpuscular Hemoglobin 30 pg (27-31); Mean Corpuscular Volume 90 fL (80-97); Nucleated Red Blood Cells % 0.1; Platelet Count 309 10^3/ul (150-450); Red Blood Count 3.48 10^6/ul (4.00-5.40); Red Cell Distribution Width 15 % (10.5-15); White Blood Count 9.4 10^3/ul (3.5-10.8)
[2018-04-29 08:35] LABS: EGFR Non-African American 74.8 (>60)
[2018-04-29] MEDS ORDERED: Potassium Chloride LIQUID* 20 MEQ PACKET PO ONE (08:37)
[2018-04-29] MEDS ORDERED: Magnesium Sulfate 2 GM IV* 2 GM/50 ML BAG IVPB ONE (08:46)
[2018-04-29] MEDS: Folic Acid TAB* 1 MG PO SCH (09:19)
[2018-04-29] MEDS: Aspirin 81 mg CHEW TAB* 81 MG TAB.CHEW PO SCH (09:19)
[2018-04-29 11:43] VITALS: BP 154/80
[2018-04-29] MEDS: Bacitracin OINTMENT* 0.5% 0.5 oz TUBE TOPICAL SCH (12:15)
--- NOTE | 2018-04-29 12:25 | DS ---
CC: Dr. Laurie Paz; Dr. Benjamín Washington, Urology * DISCHARGE SUMMARY: DATE OF ADMISSION: 04/26/18 DATE OF DISCHARGE: 04/29/18 PRIMARY CARE PROVIDER: Dr. Laurie Paz. MY ATTENDING WHILE IN THE HOSPITAL: Dr. Glenda Chris.* (DICTATED BY TIFFANIE BECERRA) PRIMARY DISCHARGE DIAGNOSES: 1. Urinary tract infection, right obstructing nephrolithiasis, status post stent placement. 2. Rhabdomyolysis. 3. Fall with prolonged downtime. 4. Delirium. SECONDARY DISCHARGE DIAGNOSES: 1. Rheumatoid arthritis. 2. Osteoarthritis. 3. Gastroesophageal reflux disease. 4. History of total right knee replacement. STUDIES DONE WHILE IN THE HOSPITAL: Brain CT from 04/25/18 read as: No traumatic intracranial abnormalities, age-related atrophy, and mild chronic small vessel ischemic disease. Chest x-ray from 04/25/18 read as: No concern for acute disease. Electrocardiogram from 04/25/18 shows: Normal sinus rhythm; early repolarization in V1, V2, and V3; possible minimal ST-segment elevation in V5 and V6 similar to event from August of this year. No hypertrophy or enlargement, normal axis, rate 93, QTc 467. No other heart blocks or hypertrophy. Gallbladder ultrasound from 04/25/18 read as: Mild right hydronephrosis, small simple hepatic cyst. No other gallbladder pathology. Transthoracic echocardiogram from 04/26/18 read as: Mild concentric left ventricular hypertrophy, global left ventricular wall motion and contractility within normal limits, normal left ventricular systolic function, estimated ejection fraction of 55% to 60%, right ventricular systolic function normal. No PFO, systolic pressure in the aortic cusp is reduced, mean gradient is 9 mmHg , mild aortic stenosis, trace mitral regurgitation, trace tricuspid regurgitation, no pulmonary hypertension, no pericardial effusion. Brain MRI from 04/26/18 read as diffuse involutional change, otherwise unremarkable MRI of the brain. Electroencephalogram from 04/26/18 read as essentially normal awake and sleep EEG with nonspecific sharply contoured waves at the right parietal and temporal region. During drowsiness, it resembled small sharp spikes and wicket waves. These are normal variance. There are no clear epileptiform discharges. Abdomen and bladder ultrasound from 04/26/18 read as mild right hydronephrosis, demonstrating slight progression which is secondary to a large calculus at the ureteropelvic junction. Retrograde pyelogram from 04/28/18 shows placement of the stent via fluoroscopy. MEDICATIONS AT DISCHARGE: 1. Methotrexate 17.5 mg p.o. weekly. 2. Folic acid 750 mg p.o. q.a.m. 3. Multivitamin 1 cap p.o. q.a.m. 4. Magnesium 250 mg p.o. q.a.m. 5. Vitamin D and calcium carbonate 500/400 one tab p.o. q.a.m. 6. Biotin 10,000 mcg p.o. q.a.m. 7. Tylenol 650 mg p.o. q.4 hours as needed. 8. Aspirin 81 mg p.o. daily. 9. Bacitracin 1 application topical daily. 10. Cefpodoxime 200 mg p.o. q.12 hours x28. 11. Docusate 100 mg p.o. b.i.d. as needed. 12. Percocet 1 tab p.o. q.4 hours as needed. 13. Humira 40 mg IM monthly on the of month. HOSPITAL COURSE: This is a brief summary of the patient's presentation. For more details, please see the history and physical from Cheryl Morrissey DO, on . In brief, the patient is a 72-year-old female with past medical history significant for above, who presented to the emergency department after feeling in her normal state of health up until Wednesday evening. The patient does not remember falling but she remembers being on the floor and looking at the clock several times. The patient is unable to describe the circumstances of her fall. The patient felt very weak and was not able to get up. The patient did not communicate with her family during this time. The patient was confused during this time and was brought to the emergency department. The patient had had a UTI in January, which was treated on an outpatient basis but had persistent dysuria since then, which had been getting worse. The patient denied any other symptoms. The patient did have several episodes of diarrhea in association with her fall. The patient had no chest pain or shortness of breath. The patient had no neurological deficits. The patient was given fluids in the emergency department, had labs which showed elevated transaminases and severely elevated CPK. The patient had retained urine while in the hospital and a Guillen was placed. The patient improved significantly on her first day in the hospital. The patient had studies as above with a negative MRI and negative EEG , normal echocardiogram, negative brain MRI. The patient is usually very independent and returned to this level very quickly. The patient was seen by Physical Therapy and found to be weak without focality. The patient had no other focal deficits on exam. The patient was started on ceftriaxone while in the emergency department for her UTI. The patient initially had a slight white blood cell count which trended down. The patient had no blood cultures drawn. The patient was initially hypokalemic and had slightly elevated troponin and a very elevated CRP. The patient's troponin trended down. The patient had an excellent lipid profile. The patient's TSH was normal. The patient became slightly anemic after being given significant amount of fluid. The patient's CPK trended down. The patient continued to have urinary retention and complained of suprapubic tenderness. The patient had a gallbladder ultrasound, which showed no gallbladder pathology but mild hydronephrosis. The patient then had a renal and bladder ultrasound, which showed a large left-sided kidney stone. The patient was seen in consultation by Dr. Benjamín Washington, who recommended stent placement. This was performed in the morning of 04/28/18. The patient tolerated the procedure well. The patient's Guillen was removed without incident. The patient had no other acute events. The patient was continued on fluids until 04/29/18 at which time it was discontinued. The patient had a slight acute kidney injury, which resolved. The patient's liver function tests were trended down. The patient due to her physical therapy needs was offered and accepted a bed at [facility] [place] on 04/29/18 and is stable and amenable for discharge. PHYSICAL EXAM ON DAY OF DISCHARGE: General: The patient is a 72-year-old female, who appears her stated age and is sitting comfortably in bed, in no acute distress. HEENT: Head: Normocephalic, atraumatic. Sclerae intact. No conjunctival injection. Nasal mucosa moist. Oral mucosa moist. No pharyngeal erythema, discharge, or exudates. Neck: Supple, nontender. No lymphadenopathy. No carotid bruit auscultated. No JVD. Cardiac: Regular rate and rhythm. No clicks, murmurs, gallops, or rubs. Pulses 2+ bilaterally in dorsalis pedis, posterior tibial, and radial areas. Respiratory: Clear to auscultation bilaterally. No wheezes, rales, or rhonchi. Good air exchange bilaterally. Abdomen: Soft, nontender, nondistended. Bowels sounds present. Normoactive in all 4 quadrants. No hepatosplenomegaly, no abdominal bruits auscultated. No hepatojugular reflux. Genitourinary: No suprapubic tenderness or CVA tenderness. Skin: Scattered bruises, no other rash. Neuro: Cranial nerves II through XII intact. No focal deficits. Alert and oriented x3. Psychiatric: Pleasant and cooperative. LABORATORY DATA: On date of discharge, white blood count 9.4, hemoglobin 10.4, platelet count 309. Sodium 141, potassium 3.4, chloride 107, carbon dioxide 29 , anion gap 5, BUN 17, creatinine 0.76, glucose 92, calcium 8.5, magnesium 1.8. DISCHARGE PLAN: The patient will be discharged to [facility] [place] for physical therapy and occupational therapy. The patient should follow up with Dr. Benjamín Washington within 2 weeks for definitive management of her kidney stones. The patient will be continued on antibiotics for at least 2 weeks and possibly until definitive therapy for her kidney stone as this is likely harboring her infection and explains her prolonged course of dysuria despite initial adequate antibiotic treatment. The patient's syncope and prolonged downtime was likely due to weakness and delirium related to her UTI. The patient's workup was otherwise negative. The patient was monitored on telemetry for several days and had no arrhythmias. The patient had a slightly elevated troponin in the setting of severe infection. This is likely due to demand ischemia; however, after her other medical issues are addressed, an outpatient stress test should be considered. The patient's liver dysfunction is likely due to hypotension in the setting of severe infection and fall; this was trended down. The patient should have a repeat CBC and CMP within 1 week to assess for resolution of her LFT abnormalities. If the patient had persistent LFT abnormalities further, evaluation should be done for causes of liver dysfunction; however, these are unlikely. The patient should be encouraged to drink plenty of fluid. If there is continuing concern for neurologic cause of the patient's fall such as seizure , which could be more likely in the presence of repeat episodes, followup with Neurology should be considered. The patient should have a heart-healthy diet without caffeine, engage in activities as tolerated. The patient should return to the hospital for alarming symptoms such as falls, chest pain, shortness of breath, severe abdominal pain, high fevers, or other alarming symptoms. TIME SPENT: Approximately 60 minutes was spent on the discharge of the patient, 30 of which was spent [id number] with the patient and obtaining history and physical and discussing treatment plan. TIFFANIE BECERRA [id number]/[facility] #: [id number] GELA
== END 2018-04-29 13:35 | DRG 660 ==
LOC: ED 22:04 → MEDTELE 04-26 01:14 → SSU 04-28 09:11
PROVIDERS: ADMIT Pediatrics; ATTEND Internal Medicine
PROC: 4A00X4Z Measurement of Central Nervous Electrical Activity, External Approach (ICD-10-PCS; 2018-04-26)
PROC: 0T738DZ Dilation of Right Kidney Pelvis with Intraluminal Device, Via Natural or Artificial Opening Endoscopic (ICD-10-PCS; 2018-04-28)
PROC: BT1DZZZ Fluoroscopy of Right Kidney, Ureter and Bladder (ICD-10-PCS; principal; 2018-04-28 07:30)
DX: N13.6 Pyonephrosis (principal); F05 Delirium due to known physiological condition; M19.90 Unspecified osteoarthritis, unspecified site; M81.0 Age-related osteoporosis without current pathological fracture; Z96.651 Presence of right artificial knee joint; K21.9 Gastro-esophageal reflux disease without esophagitis; M06.9 Rheumatoid arthritis, unspecified; T79.6XXA Traumatic ischemia of muscle, initial encounter; W17.89XA Other fall from one level to another, initial encounter; E87.6 Hypokalemia; E66.9 Obesity, unspecified; R33.8 Other retention of urine; R41.3 Other amnesia; N17.9 Acute kidney failure, unspecified; K76.89 Other specified diseases of liver; I08.3 Combined rheumatic disorders of mitral, aortic and tricuspid valves; Z79.82 Long term (current) use of aspirin; Z72.89 Other problems related to lifestyle; Z87.891 Personal history of nicotine dependence; Z88.0 Allergy status to penicillin; Z68.31 Body mass index [BMI] 31.0-31.9, adult
CPT/HCPCS: 36415; 70450; 70551; 71045; 74420; 76705; 76770; 80048; 80053; 80061; 80076; 80320; 81003; 81015; 82140; 82550; 83735; 84100; 84443; 84484; 85025; 86140; 87077; 87086; 87186; 90715; 93005; 93306; 95819; 99284; A9270-GY; G0480; G8978-GP-CK; G8979-GP-CI; G8987-GO-CJ; G8987-GO-CL; G8988-GO-CI; J0696; J1644; J2250; J2400; J3475; J8540

== ENCOUNTER 2018-05-16 09:32 | Day surgery (SDC) | payer MEDICARE ==
--- NOTE | 2018-05-12 09:36 | HP ---
CC: Dr. Laurie Paz * HISTORY AND PHYSICAL: DATE OF PLANNED ADMISSION AND SURGERY: 05/16/18 HISTORY OF PRESENT ILLNESS: Mrs. Juarez is a 72-year-old white female, who is admitted with a right renal calculus, status post placement of right ureteral stent for shockwave lithotripsy of the right renal calculus and cystoscopy and removal of right ureteral stent. Mrs. Juarez' history goes back to 04/27/18 when she was brought to the emergency room after an episode of disorientation, weakness, and found on the floor. She had a full workup and the only abnormality that was noted was urinary tract infection, partial urinary retention, and a partially obstructing calculus at the right ureteropelvic junction. The patient was managed with fluid, IV antibiotics, and was taken to the operating room on 04/28/18 and had a placement of right ureteral stent. Postoperative KUB showed the stent in good position and a 6-mm radiopaque calculus adjacent to the upper loop of the stent in the renal pelvis. The patient was sent for rehab at [facility] after her discharge. She has been doing well and almost fully recovered. She has been maintained on cefpodoxime 200 mg twice a day. PAST MEDICAL HISTORY AND SYSTEM REVIEW: The patient has chronic rheumatoid arthritis and is maintained on methotrexate 17.5 mg weekly, Humira 40 mg IM monthly. She is also on folic acid 750 mg daily, multivitamin, magnesium, vitamin D, and calcium supplement and she has been on 1 baby aspirin per day, which was discontinued preoperatively. The patient reports being allergic to PENICILLIN, which gives her hives; however , she has been on a cephalosporin without any side effects. PHYSICAL EXAMINATION GENERAL: A moderately overweight otherwise healthy-looking white female. VITAL SIGNS: Blood pressure 150/90, pulse 100. LUNGS: Clear. HEART: Regular and rhythmic. No murmurs. ABDOMEN: Soft. No masses, no tenderness, and no CVA tenderness. DIAGNOSTIC STUDIES/LAB DATA: Urinalysis was positive for esterase and for blood; negative otherwise. She had a urine culture sent preoperatively. IMPRESSION: A 6-mm right renal calculus, status post placement of right ureteral stent. PLAN: Plan is for shockwave lithotripsy of the right renal calculus followed by cystoscopy and removal of the right ureteral stent. I discussed the above plans with the patient. Some of the potential complications including postoperative renal colic, small incidence of right renal hematoma. All her questions were answered. [id number]/[facility] #: [id number] GELA
[~2018-05-16 09:32] MED LIST changes: +Dexamethasone TAB* 4 MG PO ONE; +Famotidine IV* 10 MG/ML 2 ML (20 mg) IV ONE
[2018-05-16] MEDS ORDERED: Dexamethasone IV* 4 MG/ML 1 ML (4 MG) ONE (10:09)
[2018-05-16] MEDS ORDERED: cefTRIAXone(*) 2 GM ADDV.VIAL IVPB ONE (10:09)
[2018-05-16] MEDS ORDERED: Famotidine IV* 10 MG/ML 2 ML (20 mg) ONE (10:09)
[2018-05-16] MEDS ORDERED: Buffered Lidocaine 0.9% SYRIN* 5 ML/SYR SYRINGE ONE (10:10)
[2018-05-16] MEDS ORDERED: Midazolam* 1 MG/ML 5 ML VIAL (5 MG) ONE (12:01)
[2018-05-16] MEDS ORDERED: fentaNYL* 50 MCG/ML 2 ML VIAL (100 MCG VIAL) ONE (12:01)
[2018-05-16] MEDS ORDERED: oxyCODONE/Acetamin 5/325 MG* TAB PO PRN (12:18)
[2018-05-16] MEDS ORDERED: Ondansetron INJ* 2 MG/ML VIAL IV PRN (12:18)
[2018-05-16] MEDS ORDERED: fentaNYL* 50 MCG/ML 2 ML VIAL (100 MCG VIAL) IV PRN (12:18)
[2018-05-16] MEDS ORDERED: Naloxone* 0.4 MG/ML 1 ML VIAL IV PRN (12:18)
[2018-05-16] MEDS ORDERED: DiMENhydriNATE IV* 50 MG/ML VIAL IV PUSH PRN (12:18)
[2018-05-16] MEDS ORDERED: Lidocaine 2% JELLY* 6 ML JELLY TOPICAL ONE (12:20)
[2018-05-16] MEDS ORDERED: Ondansetron INJ* 2 MG/ML VIAL ONE (12:21)
[2018-05-16] MEDS ORDERED: Propofol* 10 MG/ML 20 ML BTL IV PUSH ONE (12:21)
[2018-05-16] MEDS ORDERED: Chloroprocaine 2%* 20 ML VIAL ONE (12:21)
[2018-05-16] MEDS ORDERED: DiMENhydriNATE IV* 50 MG/ML VIAL ONE (13:32)
[2018-05-16 15:58] VITALS: BP 114/73
[2018-05-16] MEDS ORDERED: Levofloxacin TAB* 750 MG PO ONE (17:00)
--- NOTE | 2018-05-16 17:41 | RAD ---
INDICATION: Removal of right ureteral stent. COMPARISON: KUB May 11, 2018 TECHNIQUE: A single AP view of the abdomen and pelvis was obtained. FINDINGS: There has been interval removal of the right-sided ureteral stent in its entirety. There are no large calcifications overlying the right collecting system or ureter. The gas and stool pattern is unremarkable. Degenerative changes lower lumbar spine are noted. IMPRESSION:INTERVAL REMOVAL OF RIGHT-SIDED URETERAL STENT RELATIVE TO THE MOST RECENT KUB.
--- NOTE | 2018-05-16 22:47 | OP ---
CC: Dr. Laurie Paz * DATE OF OPERATION: 05/16/18 - [facility] DATE OF : 45 SURGEON: eBnjamín Washington MD ANESTHESIOLOGIST: Jono Schrader MD ANESTHESIA: Spinal. PRE-OP DIAGNOSES: 1. Right renal calculus (1 cm). 2. Status post placement, right ureteral stent. POST-OP DIAGNOSES: 1. Right renal calculus (1 cm). 2. Status post placement, right ureteral stent. OPERATIVE PROCEDURE: 1. Shock wave lithotripsy of right renal calculus. 2. Cystoscopy and removal of right ureteral stent. INDICATIONS: Ms. Juarez is a 72-year-old white female, who was admitted about 3 weeks ago with disorientation, weakness, and was noted on her workup to have a positive urine for infection and a 1.5-cm obstructing calculus at the right ureteropelvic junction. The patient was treated as a case of sepsis. She had an urgent placement of right ureteral stent. Postoperative KUB showed the stent to be in good position and a radiopaque calculus adjacent to the stent. The patient has mostly recovered from her recent episode. She is now brought in for definitive treatment of the stone. PATHOLOGY AT FLUOROSCOPY: The right ureteral stent was in good position. A 1- cm radiopaque calculus was noted just lateral to the upper loop of the stent. At cystoscopy, the distal limb of the stent was seen coming from the right orifice. DESCRIPTION OF PROCEDURE: After successful spinal anesthesia, the patient was placed in the supine position on the shock wave lithotripsy table. The right renal calculus was visualized in both the PA and the oblique x-ray views and the position of the generator and of the patient were adjusted to have the stone in the focus of the shock waves. A total of 1800 shocks were then delivered at a rate of 60 shocks per minute. The proper positioning and fragmentation of the stone was monitored periodically. At the completion of the treatment, there was a very good fragmentation of the stone. Decision was made for stent removal. The patient was placed in the frog-leg position and was prepped and draped for a cystoscopy. Cystoscopy was performed. The distal limb of the stent was grasped and was pulled out intact. The patient tolerated the procedure well and left the operating room in good condition. The plan is to obtain a KUB before discharge. The patient will be seen in about 2 weeks in the office for followup, earlier if needed. [id number] #: [id number] [facility]
== END 2018-05-16 16:55 | disposition home or self-care (01) ==
LOC: OR 09:32
PROVIDERS: ATTEND Urology
DX: N20.0 Calculus of kidney (principal); R31.29 Other microscopic hematuria; M06.9 Rheumatoid arthritis, unspecified; Z87.891 Personal history of nicotine dependence; E66.9 Obesity, unspecified
CPT/HCPCS: 74018; A9270-GY; J0696; J1100; J1240; J2250; J2400; J2405; J2704; J3010

== ENCOUNTER 2021-06-26 07:22 | Inpatient (IN) ==
[~2021-06-26 07:22] MED LIST changes: -Buffered Lidocaine 0.9% SYRIN* 5 ML/SYR SYRINGE INTRADERM ONE; +Buffered Lidocaine 1% SYRIN 1 ml INTRADERM ONE; -Dexamethasone TAB* 4 MG PO ONE; -Famotidine IV* 10 MG/ML 2 ML (20 mg) IV ONE; +Lactated Ringers 1000 ml BAG 1,000 ML IV SCH
[2021-06-26] MEDS ORDERED: Propofol 10 MG/ML 20 ML BTL ONE ×4 (07:59→16:14)
[2021-06-26] MEDS ORDERED: Lidocaine 2% PF 5 ML VIAL ONE ×2 (07:59)
[2021-06-26] MEDS ORDERED: Dexmedetomidine 200 mcg/2 ml 2 ml VIAL (200 mcg) ONE (07:59)
[2021-06-26] MEDS ORDERED: ROPIVACAINE 5 MG/ML 30 ML BTL (0.5%) ONE (07:59)
[2021-06-26] MEDS ORDERED: Midazolam 2 mg/2 ml VIAL 1 mg/ml 2 ml VIAL (2 mg) ONE (08:00)
[2021-06-26] MEDS ORDERED: Clindamycin 900 MG/D5W BAG 900 MG/50 ML BAG IVPB ONE (08:10)
[2021-06-26] MEDS ORDERED: Ropivacaine 5 MG/ML 20 ML VIAL 0.5% (100 MG) ONE (08:45)
[2021-06-26 08:56] LABS: INR 1.03 (0.86-1.15)
[2021-06-26] MEDS ORDERED: ceFAZolin 2 GM in NS PREMIX 2 GM/100 ML BAG IVPB ONE (09:10)
[2021-06-26] MEDS ORDERED: Bupivacaine 0.5% SDV PF 30ML VIAL ONE (09:42)
[2021-06-26] MEDS ORDERED: Dexamethasone IV 4 MG/ML VIAL 1 ml VIAL ONE (10:24)
[2021-06-26] MEDS ORDERED: fentaNYL 100 mcg/2 ml 50 MCG/ML VIAL IV PRN (10:42)
[2021-06-26] MEDS ORDERED: Naloxone 0.4 mg VIAL 0.4 mg/ml 1 ml VIAL IV PRN (10:42)
[2021-06-26] MEDS ORDERED: DiMENhydriNATE IV 50 mg/ml 1 ml VIAL IV PUSH PRN (10:42)
[2021-06-26] MEDS ORDERED: Magnesium Hydroxide LIQ 30 ML UDC PO PRN (11:06)
[2021-06-26] MEDS ORDERED: diPHENhydraMINE IV 50 MG/ML 1 ml VIAL (BENADRYL) IV PRN (11:06)
[2021-06-26] MEDS ORDERED: diPHENhydraMINE 25 mg TAB PO PRN (11:06)
[2021-06-26] MEDS ORDERED: Ondansetron ODT 4 mg TAB 4 MG TAB PO PRN (11:06)
[2021-06-26] MEDS ORDERED: Ondansetron 4 mg VIAL 2 MG/ML 2 ml VIAL IV PRN (11:06)
[2021-06-26] MEDS ORDERED: Lactulose 30 ml UDC PO PRN (11:06)
[2021-06-26] MEDS ORDERED: Morphine 2 MG/ML SYRINGE IV PRN (11:06)
[2021-06-26] MEDS: Lactated Ringers 1000 ml BAG 1,000 ML IV SCH (14:30)
[2021-06-26] MEDS: Clindamycin 600 MG/D5W BAG 600 MG/50 ML BAG IV SCH (17:49)
[2021-06-26] MEDS: Magnesium Hydroxide LIQ 30 ML UDC PO SCH (20:07)
[2021-06-27] MEDS: Clindamycin 600 MG/D5W BAG 600 MG/50 ML BAG IV SCH ×2 (02:05→10:01)
[2021-06-27] MEDS: Lactated Ringers 1000 ml BAG 1,000 ML IV SCH (03:46)
[2021-06-27 06:21] LABS: Hematocrit 34 % (35-47); Hemoglobin 11.6 g/dL (12.0-16.0); Mean Platelet Volume 7.9 fL (7.4-10.4); Platelet Count 218 10^3/uL (150-450)
[2021-06-27 06:41] LABS: Calcium 8.8 mg/dL (8.6-10.3); Potassium 3.9 mmol/L (3.5-5.0)
[2021-06-27] MEDS: Magnesium Hydroxide LIQ 30 ML UDC PO SCH ×2 (08:48→22:04)
[2021-06-27] MEDS: Vitamin THERAPEUTIC TAB PO SCH (08:48)
[2021-06-28 05:36] LABS: Hematocrit 35 % (35-47); Hemoglobin 11.9 g/dL (12.0-16.0); Platelet Count 228 10^3/uL (150-450)
[2021-06-28] MEDS: Vitamin THERAPEUTIC TAB PO SCH (08:17)
[2021-06-28] MEDS: Magnesium Hydroxide LIQ 30 ML UDC PO SCH (08:18)
[2021-06-28 08:26] VITALS: BP 107/68
== END 2021-06-28 11:30 | disposition home or self-care (01) | DRG 470 ==
LOC: AA 07:22 → SSU 14:15
PROVIDERS: ADMIT Orthopaedic Surgery Adult Reconstructive Orthopaedic Surgery; ATTEND Orthopaedic Surgery Adult Reconstructive Orthopaedic Surgery

== ENCOUNTER 2023-07-12 09:43 | Observation (INO) ==
[~2023-07-12 09:43] MED LIST changes: -Buffered Lidocaine 1% SYRIN 1 ml INTRADERM ONE; +HYDROmorphone 1 MG/1 ML SYRINGE IV PRN; -Lactated Ringers 1000 ml BAG 1,000 ML IV SCH; +Naloxone 0.4 mg VIAL 0.4 mg/ml 1 ml VIAL IV PRN; +Ondansetron 4 mg VIAL 2 MG/ML 2 ml VIAL IV PRN
[2023-07-12] MEDS ORDERED: Midazolam 2 mg/2 ml VIAL 1 mg/ml 2 ml VIAL (2 mg) ONE (10:05)
[2023-07-12] MEDS ORDERED: Glycopyrrolate IV 0.2 MG/ML 1 ML VIAL ONE (10:05)
[2023-07-12] MEDS ORDERED: Ondansetron 4 mg VIAL 2 MG/ML 2 ml VIAL ONE (10:05)
[2023-07-12] MEDS ORDERED: Lidocaine 2% PF 5 ML VIAL ONE (10:05)
[2023-07-12] MEDS ORDERED: Dexamethasone IV 4 MG/ML VIAL 1 ml VIAL ONE (10:05)
[2023-07-12] MEDS ORDERED: Propofol 10 MG/ML 20 ML BTL ONE (10:05)
[2023-07-12] MEDS ORDERED: fentaNYL 100 mcg/2 ml 50 MCG/ML VIAL ONE ×2 (10:06→14:40)
[2023-07-12] MEDS ORDERED: Phenylephrine 40 mcg/mL 10mL (400mcg) SYRINGE ONE (10:11)
[2023-07-12] MEDS ORDERED: Chlorhexidine MOUTHWASH 0.12% 15 ML UDC ONE (10:33)
[2023-07-12] MEDS ORDERED: ceFAZolin 2 GM in NS PREMIX 2 GM/100 ML BAG IVPB ONE (11:06)
[2023-07-12 11:23] LABS: Rapid COVID-19 Molecular Undetected (Undetected)
[2023-07-12] MEDS: Lactated Ringers 1000 ml BAG 1,000 ML IV SCH ×2 (11:35→17:04)
[2023-07-12] MEDS ORDERED: Rocuronium 50 mg VIAL 10 mg/ml 5 ml VIAL (50 mg) ONE (11:57)
[2023-07-12] MEDS ORDERED: Thrombin 5,000 UNITS 1 APPLIC KIT - topical use - TOPICAL ONE (12:04)
[2023-07-12] MEDS ORDERED: Gelfoam Sponge SIZE 100 SPONGE ONE (12:04)
[2023-07-12] MEDS ORDERED: Lidocaine 1% w EPI 1:100,000 MDV 20 ML VIAL ONE (12:04)
[2023-07-12] MEDS ORDERED: ceFAZolin VIAL VIAL ONE (12:04)
[2023-07-12] MEDS ORDERED: Phenylephrine IV 10 MG/ML 1 ml VIAL ONE (13:08)
[2023-07-12] MEDS ORDERED: Benzocaine/Menthol LOZ MT PRN (14:12)
[2023-07-12] MEDS ORDERED: Phenol 1.4% Throat Spray BTL MT PRN (14:12)
[2023-07-12] MEDS ORDERED: Dextran 70/Hypromellose Tears Eye Drops 15 ml BTL (for Artificials Tears) BOTH EYES PRN (14:12)
[2023-07-12] MEDS ORDERED: Senna TAB 8.6 mg TAB PO PRN (14:12)
[2023-07-12] MEDS ORDERED: Ondansetron 4 mg VIAL 2 MG/ML 2 ml VIAL IV PRN (14:12)
[2023-07-12] MEDS ORDERED: HYDROcodone/ACETAMIN 5/325 mg TAB PO PRN ×2 (14:12)
[2023-07-12] MEDS ORDERED: Morphine 2 MG/ML SYRINGE IV PRN (14:12)
[2023-07-12] MEDS ORDERED: Magnesium Hydroxide LIQ 30 ML UDC PO PRN (14:12)
[2023-07-12] MEDS ORDERED: Buffered Lidocaine 1% SYRIN 1 ml INTRADERM ONE (14:37)
[2023-07-12] MEDS: fentaNYL 100 mcg/2 ml 50 MCG/ML VIAL IV PRN ×2 (14:43→15:31)
[2023-07-12] MEDS ORDERED: Lactated Ringers 1000 ml BAG 1,000 ML IV SCH (15:00)
[2023-07-13] MEDS ORDERED: Calcium Carb (TUMS) 500 mg CHEW TAB PO PRN (08:12)
[2023-07-13] MEDS ORDERED: NF:Multivitamins/Mins AREDS2 (NF) CAP PO SCH (09:00)
[2023-07-13] MEDS ORDERED: Fluticasone NASAL SPRAY 50MCG 16 gm SPRAY BTL INTRANASAL SCH (09:00)
[2023-07-13 10:37] VITALS: BP 106/65
== END 2023-07-13 11:30 | disposition home or self-care (01) ==
LOC: OR 09:43 → SSU 09:43
PROVIDERS: ADMIT Neurological Surgery; ATTEND Neurological Surgery